=== PATIENT | female | born 1955 | race African-American/Black ===

== ENCOUNTER 2019-05-10 13:45 | Emergency (ER) | payer OTHER ==
--- OUTSIDE RECORDS SUMMARY | 2019-05-10 13:48 | XMS REPORT ---
:1955 Author Organization [facility] Address [address] [place] [address] Dr. Dos Santos [address] [place] [address] Care Team Providers Name Role Phone Unavailable Unavailable Unavailable Problems This patient has no known problems. Allergies, Adverse Reactions, Alerts This patient has no known allergies or adverse reactions. Medications This patient has no known medications.
--- OUTSIDE RECORDS SUMMARY | 2019-05-10 13:48 | XMS REPORT | Summary of Care ---
:1955 Author Organization [facility] Address [address] [place] [address] Care Team Providers Name Role Phone Neena Rojas MD Primary Care Provider Reason for Referral MRI/CAT Scan (Routine) Status Reason Specialty Diagnoses / Referred By Referred To Procedures Contact Contact Closed Diagnostic Procedures Rebecca Sales Radiology CT LANDMARK SINUS JUANITA Ortiz WO CONTRAST [address] [place] [address] Reason for Visit MRI/CAT Scan (Routine) Status Reason Specialty Diagnoses / Referred By Referred To Procedures Contact Contact Closed Diagnostic Procedures Rebecca Sales Radiology CT LANDMARK SINUS JUANITA Ortiz WO CONTRAST [address] [place] [address] Encounter Details Date Type Department Care Team Description 04/30/2019 Hospital Encounter [facility] Rebecca Sales Computed JUANITA Ortiz Tomography [address] [place] [phone] Allergies Active Allergy Reactions Severity Noted Date Comments Acetaminophen Itching, Swelling High 03/06/2018 documented as of this encounter (statuses as of 05/01/2019) Medications Medication Sig Dispensed Refills Start Date End Date Status amLODIPine 5 mg Take 1 tablet by 30 tablet 5 04/15/2019 Active tabletIndications: mouth daily. Essential hypertension albuterol 90 Inhale 2 Puffs 8.5 g 2 04/15/2019 Active mcg/actuation every 6 (six) inhalerIndications: hours as needed Chronic obstructive for Wheezing or pulmonary disease, Shortness of unspecified COPD type Breath. busPIRone 15 mg Take 1 tablet by 60 tablet 5 04/15/2019 Active tabletIndications: mouth 2 (two) Anxiety times daily. Diclofenac Sodium 1 % Apply 1gram to 100 g 5 04/15/2019 Active gelIndications: Overlap affected area syndrome, Arthralgia of twice daily multiple joints, Swelling of multiple joints ergocalciferol, vitamin Take 1 capsule 4 capsule 5 04/15/2019 Active d2, 1,250 mcg (50,000 by mouth weekly. unit) capsuleIndications: Hypovitaminosis D FLUoxetine (PROZAC) 20 Take 1 capsule 30 capsule 5 04/15/2019 Active mg capsuleIndications: by mouth daily. Anxiety predniSONE 5 mg Take 1 tablet by 30 tablet 5 04/15/2019 Active tabletIndications: mouth daily. Arthralgia of multiple joints, Swelling of multiple joints, Overlap syndrome traZODone 50 mg Take 1 tablet by 30 tablet 5 04/15/2019 Active tabletIndications: mouth at Chronic insomnia bedtime. famotidine 20 mg Take 1 tablet by 60 tablet 5 04/15/2019 Active tabletIndications: mouth 2 (two) Gastroesophageal reflux times daily. disease without esophagitis methocarbamol 750 mg Take 1 tablet by 60 tablet 5 04/15/2019 Active tabletIndications: Back mouth 4 (four) muscle spasm times daily as needed (muscle pain or spasm). predniSONE 10 mg 5 tabs po qdaily 40 tablet 0 04/15/2019 Active tabletIndications: x 2 days, 4 Arthralgia of multiple qdaily x 3 days, joints, Swelling of 3 qdaily x 3 multiple joints, days, 2 qdaily x Overlap syndrome 3 days, x 1 qdaily x 3 days, then start 5mg daily script documented as of this encounter (statuses as of 05/01/2019) Active Problems Problem Noted Date Prediabetes 04/23/2019 Dyslipidemia (high LDL; low HDL) 04/23/2019 Urge incontinence 09/13/2018 Detrusor instability of bladder 09/13/2018 Sarcoidosis 06/14/2018 Osteoporosis without current pathological fracture, unspecified 05/29/2018 osteoporosis type H/O: CVA (cerebrovascular accident) 05/17/2018 Cholelithiasis without cholecystitis 05/17/2018 Fibroid uterus 05/17/2018 Chronic sinusitis 05/17/2018 Hypovitaminosis D: 19(03/2018) 04/22/2018 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 (mentioned in [facility] hospitalization records 02/2018) documented as of this encounter (statuses as of 05/01/2019) Immunizations Name Administration Dates Next Due Influenza Virus Vaccine 02/12/2013 Influenza Virus Vaccine Quad .5 mL IM 6+ MO 03/06/2018 documented as of this encounter Social History Tobacco Use Types Packs/Day Years Used Date Former Smoker Smokeless Tobacco: Never Used Alcohol Use Drinks/Week oz/Week Comments No Sex Assigned at Date Recorded Not on file Job Start Date Occupation Industry Not on file Not on file Not on file Travel History Travel Start Travel End No recent travel history available. documented as of this encounter Last Filed Vital Signs Not on filedocumented in this encounter Plan of Treatment Date Type Specialty Care Team Description 05/08/2019 Office Visit Dermatology Aimee Latif MD [address] [place] [address] 07/17/2019 Office Visit Rheumatology Rock Koenig, DO [facility] [place] [address] [phone] Health Maintenance Due Date Last Done Comments DTaP,Tdap,and Td Vaccines (1 - Tdap) 1965 Breast Cancer Screening (MAMMOGRAM) 1994 COLONOSCOPY 01/04/2004 Zoster Recombinant Vaccine (SHINGRIX) (1 01/04/2004 of 2) LUNG CANCER SCREEN: Recommended for age 1001/03/2009 55-80 with 30 + pack year history INFLUENZA VACCINE (#1) 2018 03/06/2018, 02/12/2013 Medicare Wellness Visit 2019 PNEUMOCOCCAL VACCINES 65+ (1 of 2 - PCV13) 2019 Osteoporosis Screening 05/28/2028 05/28/2018 HEPATITIS C (HCV) SCREEN Completed 04/17/2018 documented as of this encounter Procedures Procedure Name Priority Date/Time Associated Diagnosis Comments CT LANDMARK SINUS Routine 04/30/2019 8:42 AM Results for this WO CONTRAST LICENSING REPRESENTATIVE procedure are in the results section. documented in this encounter Results CT LANDMARK SINUS WO CONTRAST (04/30/2019 8:42 AM LICENSING REPRESENTATIVE) Specimen Narrative Performed At HISTORY: History of sarcoidosis, nasal obstruction and tip collapse. PACS/VR/DOSE TECHNIQUE: 64-multidetector Spiral CT scan of sinuses was completed in axial projection and subsequently multiple sagittal/coronal reformations were generated. FINDINGS: Comparison is made with CT scan dated 05/16/2018. Persistent cavum septum pellucidum and mild prominence of cortical sulci throughout both cerebral hemispheres noted. Diffuse mucosal thickening noted in both maxillary sinuses, up to 8 mm with underlying mucous retention cysts secondary to chronic sinusitis. There is probably a small air-fluid level in the left maxillary antrum indicating superimposed mild acute sinusitis. Both right and left frontal and anterior ethmoid sinuses are completely cloudy. Portions of middle and posterior ethmoid sinuses on both sides are also partially cloudy. Minimal mucosal thickening noted in the anterior left sphenoid sinus. No significant encroachment is seen on the sphenoethmoid recesses. Drainage pathways of right and left maxillary sinuses, frontal/anterior ethmoid sinuses are blocked by mucosal disease. NASAL AIRWAYS: Mild right deviation of the nasal septum and moderate bilateral inferior turbinate hypertrophy noted. Mucosal thickening is seen in the right/left nasal passages surrounding middle/inferior turbinates causing additional encroachment into the nasal airways. No gross pathology seen in the temporal bone anatomy. CONCLUSIONS: 1. Chronic bilateral frontal/ethmoid/maxillary sinusitis with probable superimposed mild left maxillary acute sinusitis. 2. Mucosal disease obstructing the drainage pathways of frontal/anterior ethmoid/maxillary sinuses. Procedure Note [facility], Radiant Results Inft User - 04/30/2019 8:55 AM LICENSING REPRESENTATIVE HISTORY: History of sarcoidosis, nasal obstruction and tip collapse. TECHNIQUE: 64-multidetector Spiral CT scan of sinuses was completed in axial projection and subsequently multiple sagittal/coronal reformations were generated. FINDINGS: Comparison is made with CT scan dated 05/16/2018. Persistent cavum septum pellucidum and mild prominence of cortical sulci throughout both cerebral hemispheres noted. Diffuse mucosal thickening noted in both maxillary sinuses, up to 8 mm with underlying mucous retention cysts secondary to chronic sinusitis. There is probably a small air-fluid level in the left maxillary antrum indicating superimposed mild acute sinusitis. Both right and left frontal and anterior ethmoid sinuses are completely cloudy. Portions of middle and posterior ethmoid sinuses on both sides are also partially cloudy. Minimal mucosal thickening noted in the anterior left sphenoid sinus. No significant encroachment is seen on the sphenoethmoid recesses. Drainage pathways of right and left maxillary sinuses, frontal/anterior ethmoid sinuses are blocked by mucosal disease. NASAL AIRWAYS: Mild right deviation of the nasal septum and moderate bilateral inferior turbinate hypertrophy noted. Mucosal thickening is seen in the right/left nasal passages surrounding middle/inferior turbinates causing additional encroachment into the nasal airways. No gross pathology seen in the temporal bone anatomy. CONCLUSIONS: 1. Chronic bilateral frontal/ethmoid/maxillary sinusitis with probable superimposed mild left maxillary acute sinusitis. 2. Mucosal disease obstructing the drainage pathways of frontal/anterior ethmoid/maxillary sinuses. Performing Organization Address City/State/Zipcode Phone Number PACS/VR/DOSE documented in this encounter Insurance Payer Benefit Plan / Subscriber ID Effective Dates Phone Address Type Group [facility] xxxxxxxxx 2019-Present Medicaid COMM PLAN - PLUS MANAGED MEDICAID documented as of this encounter
--- OUTSIDE RECORDS SUMMARY | 2019-05-10 13:48 | XMS REPORT | Summary of Care ---
:1955 Author Organization [facility] Address [address] [place] [address] Care Team Providers Name Role Phone Neena Rojas MD Primary Care Provider Encounter Details Date Type Department Care Team Description 09/24/2018 Orders Only [facility] Doctor Unassigned, No [address] [facility] Name [place] [id number] [address] [place] [address] Allergies Active Allergy Reactions Severity Noted Date Comments Acetaminophen Itching, Swelling High 03/06/2018 documented as of this encounter (statuses as of 11/04/2018) Medications Medication Sig Dispensed Refills Start Date End Date Status ergocalciferol, vitamin Take 1 capsule 0 Active D2, (VITAMIN D ORAL) by mouth weekly. FLUoxetine (PROZAC) 20 Take 1 capsule 30 capsule 0 03/06/2018 Active mg capsule by mouth daily. traZODONE 50 mg tablet Take 1 tablet by 30 tablet 1 03/06/2018 Active mouth at bedtime. predniSONE 5 mg tablet Take 1 tablet by 30 tablet 1 03/06/2018 Active mouth daily. apixaban 5 mg tablet Take 10 mg po 104 tablet 0 03/06/2018 Active bid x 7 days then 5 mg bid for 3 months Diclofenac Sodium 1 % Apply 1gram to 100 g 1 04/17/2018 Active gelIndications: Overlap affected area syndrome twice daily ergocalciferol, vitamin Take 1 capsule 12 capsule 0 04/24/2018 Active d2, 50,000 unit by mouth weekly. capsuleIndications: Hypovitaminosis D proMETHazine 25 mg Take 1 tablet by 20 tablet 0 06/17/2018 Active tabletIndications: mouth every 6 Biliary colic (six) hours as needed for Nausea and Vomiting (N/V). albuterol 90 Inhale 2 Puffs 8.5 g 11 06/18/2018 Active mcg/actuation every 6 (six) inhalerIndications: hours as needed Axillary for Wheezing or lymphadenopathy, Hilar Shortness of lymphadenopathy Breath. busPIRone 15 mg Take 1 tablet by 60 tablet 5 09/12/2018 Active tabletIndications: mouth 2 (two) Anxiety times daily. amLODIPine 5 mg Take 1 tablet by 30 tablet 5 09/12/2018 Active tabletIndications: mouth daily. Essential hypertension ranitidine 150 mg Take 1 tablet by 60 tablet 11 09/12/2018 Active tabletIndications: mouth 2 (two) Gastroesophageal reflux times daily. disease without esophagitis documented as of this encounter (statuses as of 11/04/2018) Active Problems Problem Noted Date Urge incontinence 09/13/2018 Detrusor instability of bladder 09/13/2018 Sarcoidosis 06/14/2018 Osteoporosis without current pathological fracture, unspecified 05/29/2018 osteoporosis type H/O: CVA (cerebrovascular accident) 05/17/2018 LAD (lymphadenopathy), hilar 05/17/2018 Cholelithiasis without cholecystitis 05/17/2018 Fibroid uterus 05/17/2018 Chronic sinusitis 05/17/2018 Hypovitaminosis D: 19(03/2018) 04/22/2018 Overlap syndrome 04/17/2018 Immunization counseling 04/17/2018 At risk for bone density loss 04/17/2018 intermission coordinator (current) use of non-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 (mentioned in [facility] hospitalization records 02/2018) documented as of this encounter (statuses as of 11/04/2018) Immunizations Name Administration Dates Next Due Influenza [...] filedocumented in this encounter Plan of Treatment Health Maintenance Due Date Last Done Comments PNEUMOCOCCAL 0-64 YEARS COMBINED SERIES (1 01/04/1960 of 1 - PPSV23) DTaP,Tdap,and Td Vaccines (1 - Tdap) 1973 PAP SMEAR 1975 MAMMOGRAM 1994 COLONOSCOPY 01/04/2004 Zoster Recombinant Vaccine (SHINGRIX) (1 01/04/2004 of 2) LUNG CANCER SCREEN: Recommended for age 1001/03/2009 55-80 with 30 + pack year history INFLUENZA VACCINE (Retired version) 11/17/2018 03/06/2018, 02/12/2013 HEPATITIS C (HCV) SCREEN Completed 04/17/2018 documented as of this encounter Procedures Procedure Name Priority Date/Time Associated Diagnosis Comments DME/SUPPLY JUSTIFICATION Routine 09/24/2018 12:01 AM CDT documented in this encounter Results Not on filedocumented in this encounter Insurance Payer Benefit Plan / Subscriber ID Effective Dates Phone Address Type Group MEDICARE MEDICARE PART xxxxxxxxxxx 2013-Manuel [phone] [place] [address] [id number] JUANITA CHAPMAN [address] [facility] MEDICAID OF xxxxxxxxx 2018-Manuel [phone] Medicaid [place] t 0 [id number] [place] [address] documented as of this encounter
--- OUTSIDE RECORDS SUMMARY | 2019-05-10 13:48 | XMS REPORT | Summary of Care ---
:1955 Author Organization [facility] Address [address] [place] [address] Care Team Providers Name Role Phone Neena Rojas MD Primary Care Provider Reason for Referral Radiology Services (Routine) Status Reason Specialty Diagnoses / Referred By Referred To Procedures Contact Contact Closed Diagnostic Diagnoses Abnormal liver function tests Elevated alkaline phosphatase level Elevated AST (SGOT) Leukopenia, unspecified type [place], Radiology Procedures US ABDOMEN LIMITED Neena Loyola MD [address] [place] [address] [facility] [place] [place] [address] Reason for Visit Radiology Services (Routine) Status Reason Specialty Diagnoses / Referred By Referred To Procedures Contact Contact Closed Diagnostic Diagnoses Abnormal liver function tests Elevated alkaline phosphatase level Elevated AST (SGOT) Leukopenia, unspecified type [place], Radiology Procedures US ABDOMEN LIMITED Neena Loyola MD [address] [place] [address] [facility] [place] [address] Encounter Details Date Type Department Care Team Description 04/30[facility]2019 [facility] [address] [place] [address] [place] [address] [place] [address] [place] [phone] [address] Allergies Active Allergy Reactions Severity Noted Date [...] At risk for bone density loss 04/17/2018 jail (current) use of non-steroidal anti-inflammatories (nsaid) 2018 [...] 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 (mentioned in [facility] hospitalization records 02/2018) documented as [...] Office Visit Dermatology Aimee Latif MD [address] [place] [phone] 07/17/2019 Office Visit Rheumatology Rock Koenig, DO [address] [place] [address] [phone] Health Maintenance Due Date Last Done Comments [...] Procedure Name Priority Date/Time Associated Diagnosis Comments US ABDOMEN LIMITED Routine 04/30/2019 8:34 AM Abnormal liver Results for this [employer] function tests procedure are in Elevated alkaline the results phosphatase level section. Elevated AST (SGOT) Leukopenia, unspecified type documented in this encounter Results US ABDOMEN LIMITED (04/30/2019 8:34 AM [employer]CH[employer]) Specimen Narrative Performed At HISTORY: Abnormal LFTs. PACS/VR/DOSE COMPARISON: None TECHNIQUE: Liver as well as gallbladder were evaluated in multiple planes without and with color imaging. FINDINGS: Comparison has been made with CT scan dated 06/17/2018. Liver is approximately 15.0 cm and showed normal homogeneous echotexture. Hepatic/portal venous systems appear patent with hepatopedal portal venous flow confirmed. No fluid is seen in the right upper abdomen. No dilatation of the intrahepatic biliary ducts. Gallbladder is elongated shaped with minimal thickening of the shah and a few small 3-4 liver size mobile gallstones in the dependent portion of its lumen with acoustic shadowing confirmed. Common hepatic duct measured 5.5 mm. Visualized portions of the pancreas appear normal. CONCLUSIONS: 1. Normal ultrasound study of liver. 2. Gallstones noted without any signs of acute cholecystitis. Procedure Note [facility], Radiant Results Inft User - 04/30/2019 8:44 AM [employer] HISTORY: Abnormal LFTs. COMPARISON: None TECHNIQUE: Liver as well as gallbladder were evaluated in multiple planes without and with color imaging. FINDINGS: Comparison has been made with CT scan dated 06/17/2018. Liver is approximately 15.0 cm and showed normal homogeneous echotexture. Hepatic/portal venous systems appear patent with hepatopedal portal venous flow confirmed. No fluid is seen in the right upper abdomen. No dilatation of the intrahepatic biliary ducts. Gallbladder is elongated shaped with minimal thickening of the shah and a few small 3-4 liver size mobile gallstones in the dependent portion of its lumen with acoustic shadowing confirmed. Common hepatic duct measured 5.5 mm. Visualized portions of the pancreas appear normal. CONCLUSIONS: 1. Normal ultrasound study of liver. 2. Gallstones noted without any signs of acute cholecystitis. Performing Organization Address City/State/Zipcode Phone Number PACS/VR/DOSE documented in this encounter Visit Diagnoses Diagnosis Abnormal liver function tests Other abnormal blood chemistry Elevated alkaline phosphatase level Other nonspecific abnormal serum enzyme levels Elevated AST (SGOT) Nonspecific elevation of levels of transaminase or lactic acid dehydrogenase ( LDH) Leukopenia, unspecified type documented in this encounter Insurance Payer Benefit Plan / Subscriber ID Effective Dates Phone Address Type Group [facility] xxxxxxxxx 2019-Present Medicaid COMM PLAN - PLUS MANAGED MEDICAID documented as of this encounter
--- OUTSIDE RECORDS SUMMARY | 2019-05-10 13:49 | XMS REPORT | Summary of Care ---
:1955 Author Organization [facility] Address [address] [place], [place] [address] Care Team Providers Name Role Phone Neena Rojas MD Primary Care Provider Reason for Referral MRI/CAT Scan (Routine) Status Reason Specialty Diagnoses / Referred By Referred To Procedures Contact Contact New Request Diagnostic Procedures Mónica, Radiology CT LANDMARK SINUS Rebecca WO JUANITA Carrasco [address] [place] [phone] Reason for Visit Reason Comments New Patient Sinus Problem nasal congestion (STAT) Status Reason Specialty Diagnoses / Referred By Referred To Procedures Contact Contact Closed Otolaryngology Diagnoses Nasal obstruction Sarcoidosis Nasal hypertrophy Neena Rojas Procedures CONSULT/REFERRAL ENT MD Nir [address] [place] [address] [place] [address] Encounter Details Date Type Department Care Team Description 04/28/2019 Office Visit [facility] Ear, Nose Rebecca Sales Hyposmia ( Primary Dx); and Throat-JUANITA Michelle Sarcoidosis; [address] Nasal septal deviation [address] [facility] [address] [place], [place] [phone] [address] [phone] Allergies Active Allergy Reactions Severity Noted Date Comments Acetaminophen Itching, Swelling High 03/06/2018 documented as of this encounter (statuses as of 04/29/2019) Medications Medication Sig Dispensed Refills Start Date [...] ergocalciferol, vitamin Take 1 capsule 4 capsule 04/15/2019 Active d2, 1,250 mcg (50,000 by mouth weekly. unit) capsuleIndications: Hypovitaminosis D FLUoxetine (PROZAC) 20 Take 1 capsule 30 capsule 04/15/2019 Active mg capsuleIndications: by mouth daily. Anxiety predniSONE 5 mg Take 1 tablet by 30 tablet 04/15/2019 Active tabletIndications: mouth daily. Arthralgia of multiple joints, Swelling of multiple joints, Overlap syndrome traZODone 50 mg Take 1 tablet by 30 tablet 04/15/2019 Active tabletIndications: mouth at Chronic insomnia bedtime. 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 Patient endorses anosmia bilaterally and alternating congestion. She denies pain , drainage, nasal obstruction, recurrent sinus infections, and epistaxis. The appearance of her nose is very bothersome to her. She denies any changes since onset 20-30 years ago. Has been taking prednisone for the last 10 years for her RA. Denies intranasal drug use, hx of sinus surgery or nasal spray use. Past Medical Hx: Past Medical History: Diagnosis Date Anemia Anxiety Bipolar 1 disorder Cholelithiasis without cholecystitis 05/17/2018 Chronic sinusitis 05/17/2018 Depression Detrusor instability of bladder 09/13/2018 Dyslipidemia (high LDL; low HDL) 04/23/2019 Fibroid uterus 05/17/2018 H. pylori infection H/O: CVA (cerebrovascular accident) 05/17/2018 Hearing loss HTN (hypertension) LAD (lymphadenopathy), hilar 05/17/2018 Neurofibromatosis 03/20/2018 ? (mentioned in [facility] hospitalization records 02/2018) Prediabetes 04/23/2019 PTSD (post-traumatic stress disorder) Pulmonary embolism 02/2018 RA (rheumatoid arthritis) Sarcoidosis 06/14/2018 Urge incontinence 09/13/2018 Urine induced contact dermatitis 09/13/2018 Past Surgical Hx: Past Surgical History: Procedure Laterality Date SECTION SURGICAL HISTORY OTHER (SHX) ORIF left leg w/ retained hardware Social History: Social History Tobacco Use Smoking status: Former Smoker Smokeless tobacco: Never Used Substance Use Topics Alcohol use: No Drug use: No Family History: Family History Problem Relation Age of Onset Stroke Mother Heart Mother Hypertension Sister Heart Father Hypertension Brother Allergies: Tylenol [acetaminophen] Medications: Current Outpatient Medications Medication Sig albuterol 90 mcg/actuation inhaler Inhale 2 Puffs every 6 (six) hours as needed for Wheezing or Shortness of Breath. amLODIPine 5 mg tablet Take 1 tablet by mouth daily. busPIRone 15 mg tablet Take 1 tablet by mouth 2 (two) times daily. Diclofenac Sodium 1 % gel Apply 1gram to affected area twice daily ergocalciferol, vitamin d2, 1,250 mcg (50,000 unit) capsule Take 1 capsule by mouth weekly. famotidine 20 mg tablet Take 1 tablet by mouth 2 (two) times daily. FLUoxetine (PROZAC) 20 mg capsule Take 1 capsule by mouth daily. methocarbamol 750 mg tablet Take 1 tablet by mouth 4 (four) times daily as needed (muscle pain or spasm). predniSONE 10 mg tablet 5 tabs po qdaily x 2 days, 4 qdaily x 3 days, 3 qdaily x 3 days, 2 qdaily x 3 days, x 1 qdaily x 3 days, then start 5mg daily script predniSONE 5 mg tablet Take 1 tablet by mouth daily. traZODone 50 mg tablet Take 1 tablet by mouth at bedtime. Review of Systems Positive issues in the Review of Systems will be BOLD Constitutional: fevers, chills, sweats, fatigue, weight loss, change in appetite Eyes: vision changes, diplopia, eye pain Ears: hearing loss, otalgia, otorrhea, tinnitus, vertigo Nose: anosmia, rhinorrhea, nasal congestion, epistaxis, difficulty breathing Throat: dysphagia, odynophagia, dysphonia Cardiovascular: chest pain, palpitations, dyspnea on exertion Respiratory: cough, wheeze, shortness of breath; hx asthma or COPD Gastrointestinal: nausea, vomiting, diarrhea, abdominal pain, indigestion Genitourinary: recent infections, ESRD, dysuria, oliguria Musculoskeletal: arthritis, joint pain, mobility problems Integumentary: skin infection, rashes or skin changes Neurologic: seizures, headaches, weakness Psychiatric: ADHD, anxiety, depressed mood Endocrine: thyroid problems, diabetes Hematologic: bleeding disorders, easy bruising Allergy/Immunology: food allergy, environmental allergy, immunosuppressed, eczema Physical Exam: Temp 36.9 C (98.5 F) (Tympanic) | Ht 5' 2" (1.575 m) | Wt 132 lb 0.1 oz ( 59.9 kg) | BMI 24.14kg/m GENERAL: WDWN in NAD. Normal voice. No dyspnea or stridor. HEAD/FACE: Normocephalic, atraumatic. Facial nerve intact and bilaterally symmetric. Submandibular and parotid glands non-tender and without masses. Malar rash EYES: EOMI; conjunctivae clear EARS: Auricles normal. R canal clear and TM intact. L canal impacted, TM not visible. T[place]ork Testing: Rinne: Positive bilaterally with 512 Hz Baldwin: Did not lateralize. NOSE: Enlarged nares and widened nasal bridge with tip collapse. Nasal mucosa normal; no step offs,nares patent, mild nasal valve collapse, right septal deviation; no inferior turbinate hypertrophy.See procedure note.--photo available in media tab. OC/OP: No trismus; oral mucosa is wnl, no mass or lesion; edentulism, tongue soft without restriction of movement; No post-nasal drainage; tonsils present and not enlarged; uvula midline; palate intactand elevates symmetrically. NECK: Neck is supple; trachea midline; no obvious goiter or thyroid nodules appreciated. LYMPH: Unable to appreciate gross cervical lymphadenopathy. SKIN: Swelling of external nose, BUE, and BLE. NEUROLOGICAL: Cranial nerves II-XII grossly intact. PSYCHIATRIC: Oriented to person, place, time. Appropriate affect for age. RESPIRATORY: Good respiratory effort; symmetrical expansion of thoracic cavity. CARDIOVASCULAR: extremities well perfused. Procedures Sinonasal Endoscopy: Sinonasal endoscopy was performed in clinic for better visualization of the patient's nasal cavity and sinuses. Topical anesthesia and decongestion were used. Using a flexible endoscope, the nasal cavity was evaluated. Septum was found to be deviated to the right, unable to pass scope on the right. L side middle turbinate making contact with septum. Nasal mucosa appeared normal. Middle meati and SE recesses clear of drainage and polyps bilaterally. The nasopharynx showed no significant lesions or purulence. The patient tolerated the procedure well with no complications Data Review Comprehensive data review performed DIAGNOSES: ICD-10-CM ICD-9-CM 1. Hyposmia R43.8 781.1 2. Sarcoidosis D86.9 135 3. Nasal septal deviation J34.2 470 Assessment/Plan: Lakshmi Garcia is a 64 year old female with PMH of HTN, RA, and sarcoidosis who presents for evaluation of a 20-year history of nasal enlargement and hyposmia. The external nose is diffusely enlarged with severe tip collapse. Normal nasal mucosa and patency. Suspect this is due to her autoimmune issues. Nasal endoscopy limited due to her anatomy. - CT sinuses w/o contrast - Will call with results but suspect she will need a rhinoplasty which may require plastic surgery referral. I discussed at length the exam findings, diagnoses, and treatment options with the patient. Questions have been answered to satisfaction. JONATHAN RosenbergC Department of Otolaryngology [facility] documented in this encounter Plan of Treatment Date Type Specialty Care Team Description 04/30/2019 Appointment Radiology Neena Rojas MD [address] [place] [phone] 04/30/2019 Appointment Radiology Rebecca aSles PA [address] [place] [address] 05/08/2019 Office Visit Dermatology Aimee Latif MD [address] [place] [address] 07/17/2019 Office Visit Rheumatology Rock Koenig DO [address] [place] [address] [phone] Name Type Priority Associated Diagnoses Order Schedule CT LANDMARK SINUS WO IMAGING Routine Expected: 04/28/2019, CONTRAST Expires: 04/27/2020 Health Maintenance Due Date Last Done Comments [...] Completed 04/17/2018 documented as of this encounter Results Not on filedocumented in this encounter Visit Diagnoses Diagnosis Hyposmia - Primary Disturbances of sensation of smell and taste Sarcoidosis Nasal septal deviation Deviated nasal septum documented in this encounter Insurance Payer Benefit Plan / Subscriber ID Effective Dates Phone Address Type Group [facility] xxxxxxxxx 2019-Present Medicaid COMM PLAN - PLUS MANAGED MEDICAID documented as of this encounter
--- OUTSIDE RECORDS SUMMARY | 2019-05-10 13:49 | XMS REPORT | Summary of Care ---
:1955 Author Organization [facility] Address [address] [place] [address] Care Team Providers Name Role Phone Neena Rojas MD Primary Care Provider Reason for Referral Radiology Services (Routine) Status Reason Specialty Diagnoses / Referred By Referred To Procedures Contact Contact New Request Diagnostic Diagnoses Abnormal liver function tests Elevated alkaline phosphatase level Elevated AST (SGOT) Leukopenia, unspecified type Bob, Radiology Procedures US ABDOMEN LIMITED Neena Loyola MD [address] [place] [address] [place] [address] Reason for Visit Reason Comments Orders Encounter Details Date Type Department Care Team Description 04/23/2019 Case Management [facility] Family Neena Rojas, Orders Medicine - [place] GERBER [address] [place] [address] [place] [address] [place] [address] [place], [place] [phone] [address] Allergies Active Allergy Reactions Severity Noted Date Comments Acetaminophen Itching, Swelling High 03/06/2018 documented as of this encounter (statuses as of 04/23/2019) Medications Medication Sig Dispensed Refills Start Date [...] 1 % Apply 1gram to 100 g 04/15/2019 Active gelIndications: Overlap affected area syndrome, [...] tablet by 60 tablet 04/15/2019 Active tabletIndications: Back mouth 4 (four) [...] as of this encounter (statuses as of 04/23/2019) Active Problems Problem Noted Date Prediabetes 04/23/2019 [...] At risk for bone density loss 04/17/2018 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 pylori infection documented as of this encounter (statuses as of 04/23/2019) Resolved Problems Problem Noted Date Resolved Date Urine induced contact dermatitis 09/13/2018 09/13/2018 LAD (lymphadenopathy), hilar 05/17/2018 04/15/2019 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 (mentioned in [facility] hospitalization records 02/2018) documented as of this encounter (statuses as of 04/23/2019) Immunizations Name Administration Dates Next Due Influenza [...] Treatment Date Type Specialty Care Team Description 04/24/2019 Office Visit Dermatology Aimee Latif MD [address] [place] [address] 04/28/2019 Office Visit Otolaryngology Rebecca Sales PA [address] [place] [address] 07/17/2019 Office Visit Rheumatology Rock Koenig DO [facility] [place] [address] [phone] Name Type Priority Associated Diagnoses Order Schedule US ABDOMEN LIMITED IMAGING Routine Abnormal liver Expected: function tests 04/23/2019, Expires: Elevated alkaline 04/23/2020 phosphatase level Elevated AST (SGOT) Leukopenia, unspecified type ALKALINE PHOSPHATASE LAB Routine Abnormal liver 1 Occurrences ISOENZYME function tests starting 04/23/2019 Elevated alkaline until 06/22/2019 phosphatase level Elevated AST (SGOT) Leukopenia, unspecified type ALPHA 1 ANTITRYPSIN LAB Routine Abnormal liver 1 Occurrences function tests starting 04/23/2019 Elevated alkaline until 06/22/2019 phosphatase level Elevated AST (SGOT) Leukopenia, unspecified type CERULOPLASMIN LAB Routine Abnormal liver 1 Occurrences function tests starting 04/23/2019 Elevated alkaline until 06/22/2019 phosphatase level Elevated AST (SGOT) Leukopenia, unspecified type FERRITIN SERUM LAB Routine Abnormal liver 1 Occurrences function tests starting 04/23/2019 Elevated alkaline until 06/22/2019 phosphatase level Elevated AST (SGOT) Leukopenia, unspecified type GAMMA GLUTAMYLTRANSFERASE LAB Routine Abnormal liver 1 Occurrences function tests starting 04/23/2019 Elevated alkaline until 06/22/2019 phosphatase level Elevated AST (SGOT) Leukopenia, unspecified type HAV ANTIBODY (IGG AND IGM) LAB Routine Abnormal liver 1 Occurrences function tests starting 04/23/2019 Elevated alkaline until 06/22/2019 phosphatase level Elevated AST (SGOT) Leukopenia, unspecified type HCV ANTIBODY LAB Routine Abnormal liver 1 Occurrences function tests starting 04/23/2019 Elevated alkaline until 06/22/2019 phosphatase level Elevated AST (SGOT) Leukopenia, unspecified type HEPATITIS B SURFACE ANTIBODY LAB Routine Abnormal liver 1 Occurrences function tests starting 04/23/2019 Elevated alkaline until 10/20/2019 phosphatase level Elevated AST (SGOT) Leukopenia, unspecified type HEPATITIS B SURFACE ANTIGEN LAB Routine Abnormal liver 1 Occurrences function tests starting 04/23/2019 Elevated alkaline until 06/22/2019 phosphatase level Elevated AST (SGOT) Leukopenia, unspecified type MITOCHONDRIAL M2 AB, IGG LAB Routine Abnormal liver 1 Occurrences function tests starting 04/23/2019 Elevated alkaline until 06/22/2019 phosphatase level Elevated AST (SGOT) Leukopenia, unspecified type SMOOTH MUSCLE AB,IGG LAB Routine Abnormal liver 1 Occurrences W/REFLEX function tests starting 04/23/2019 Elevated alkaline until 06/22/2019 phosphatase level Elevated AST (SGOT) Leukopenia, unspecified type HIV 1/2 AG-AB WITH REFLEX LAB Routine Abnormal liver 1 Occurrences function tests starting 04/23/2019 Elevated alkaline until 06/22/2019 phosphatase level Elevated AST (SGOT) Leukopenia, unspecified type ELECTROPHORESIS, SERUM LAB Routine Abnormal liver 1 Occurrences function tests starting 04/23/2019 Elevated alkaline until 06/22/2019 phosphatase level Elevated AST (SGOT) Leukopenia, unspecified type Elevated serum protein level Health Maintenance Due Date Last Done Comments [...] filedocumented in this encounter Visit Diagnoses Diagnosis Abnormal liver function tests - Primary Other abnormal blood chemistry Elevated alkaline phosphatase level Other nonspecific abnormal serum enzyme levels Elevated AST (SGOT) Nonspecific elevation of levels of transaminase or lactic acid dehydrogenase ( LDH) Leukopenia, unspecified type Elevated serum protein level Other nonspecific findings on examination of blood documented in this encounter Insurance Payer Benefit Plan / Subscriber ID Effective Dates Phone Address Type Group [facility] xxxxxxxxx 2019-Present Medicaid COMM PLAN - PLUS MANAGED MEDICAID documented as of this encounter
--- OUTSIDE RECORDS SUMMARY | 2019-05-10 13:49 | XMS REPORT | Summary of Care ---
:1955 Author Organization [facility] Address [address] [place], [place] [address] Care Team Providers Name Role Phone Neena Rojas MD Primary Care Provider Reason for Referral MRI/CAT Scan (Routine) Status Reason Specialty Diagnoses / Referred By Referred To Procedures Contact Contact New Request Diagnostic Procedures Mónica, Radiology CT LANDMARK SINUS Rebecca WO JUANITA Carrasco [address] [place] [phone] Reason for Visit Reason Comments New Patient Sinus Problem nasal congestion (STAT) Status Reason Specialty Diagnoses / Referred By Referred To Procedures Contact Contact Closed Otolaryngology Diagnoses Nasal obstruction Sarcoidosis Nasal hypertrophy Neena Rojas Procedures CONSULT/REFERRAL ENT MD Nir [address] [place] [address] [place] [address] Encounter Details Date Type Department Care Team Description 04/28/2019 Office Visit [facility] Ear, Nose Rebecca Sales Hyposmia ( Primary Dx); and Throat-JUANITA Michelle Sarcoidosis; [address] Nasal septal deviation [address] [facility] [address] [place], [place] [phone] [address] [phone] Allergies Active Allergy Reactions Severity Noted Date [...] At risk for bone density loss 04/17/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 (mentioned in [facility] hospitalization records 02/2018) Prediabetes 04/23/2019 PTSD [...] to satisfaction. JONATHAN RosenbergC Department of Otolaryngology [facility] documented in this encounter Plan of Treatment Date Type Specialty Care Team Description 04/30/2019 Appointment Radiology Neena Rojas MD [address] [place] [phone] 04/30/2019 Appointment Radiology Rebecca Sales PA [address] [place] [address] 05/08/2019 Office Visit Dermatology Aimee Latif MD [address] [place] [address] 07/17/2019 Office Visit Rheumatology Rock Koenig DO [address] [place] [address] [phone] Name Type Priority Associated Diagnoses Order Schedule [...] ID Effective Dates Phone Address Type Group [facility] [place] xxxxxxxxx 2019-Present Medicaid COMM PLAN - PLUS MANAGED MEDICAID documented as of this encounter
--- OUTSIDE RECORDS SUMMARY | 2019-05-10 13:50 | XMS REPORT | Summary of Care ---
:1955 Author Organization [facility] Address [address] [place] [address] Care Team Providers Name Role Phone Neena Rojas MD Primary Care Provider Encounter Details Date Type Department Care Team Description 04/24/2019 Orders Only [facility] Doctor Unassigned, No [address] [facility] Name [place] [id number] [address] [place], [place] [id number] Allergies Active Allergy Reactions Severity Noted Date Comments Acetaminophen Itching, Swelling High 03/06/2018 documented as of this encounter (statuses as of 04/24/2019) Medications Medication Sig Dispensed Refills Start Date [...] as of this encounter (statuses as of 04/24/2019) Active Problems Problem Noted Date Prediabetes 04/23/2019 [...] At risk for bone density loss 04/17/2018 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 pylori infection documented as of this encounter (statuses as of 04/24/2019) Resolved Problems Problem Noted Date Resolved Date Urine induced contact dermatitis 09/13/2018 09/13/2018 LAD (lymphadenopathy), pauloar 05/17/2018 04/15/2019 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 (mentioned in [facility] hospitalization records 02/2018) documented as of this encounter (statuses as of 04/24/2019) Immunizations Name Administration Dates Next Due Influenza [...] Treatment Date Type Specialty Care Team Description 04/28/2019 Office Visit Otolaryngology Rebecca Sales PA [address] [place] [address] 05/08/2019 Office Visit Dermatology Aimee Latif MD [address] [place] [address] 07/17/2019 Office Visit Rheumatology Rock Koenig, DO [address] [place] [address] [phone] Health Maintenance Due Date Last Done Comments [...] Procedure Name Priority Date/Time Associated Diagnosis Comments EXTERNAL PROVIDER Routine 04/24/2019 12:01 AM 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
--- OUTSIDE RECORDS SUMMARY | 2019-05-10 13:50 | XMS REPORT | Summary of Care ---
:1955 Author Organization [facility] - [facility] Address [address] [place] [id number] Care Team Providers Name Role Phone Neena Rojas MD Primary Care Provider Reason for Visit Reason Comments Results Encounter Details Date Type Department Care Team Description 05/02/2019 Telephone [facility], Rebecca Ortiz, Results [facility] [facility] [address] [place] [address] [place] [address] [place] [address] Allergies Active Allergy Reactions Severity Noted Date Comments Acetaminophen Itching, Swelling High 03/06/2018 documented as of this encounter (statuses as of 05/02/2019) Medications Medication Sig Dispensed Refills Start Date [...] 3 days, then start 5mg daily script fluticasone propionate Use 1 [place] in 16 g 3 05/02/2019 Active 50 mcg/actuation nasal each nostril 2 sprayIndications: (two) times Hypertrophy of both daily. inferior nasal turbinates documented as of this encounter (statuses as of 05/02/2019) Active Problems Problem Noted Date Prediabetes 04/23/2019 [...] At risk for bone density loss 04/17/2018 [facility] (current) use of non-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 (mentioned in [facility] hospitalization records 02/2018) documented as of this encounter (statuses as of 05/02/2019) Immunizations Name Administration Dates Next Due Influenza [...] Office Visit Dermatology Aimee Latif MD [address] [place] [address] 07/17/2019 Office Visit Rheumatology Rock Koenig DO [address] [place] [address] [phone] Health Maintenance Due Date Last Done Comments [...] filedocumented in this encounter Visit Diagnoses Diagnosis Hypertrophy of both inferior nasal turbinates - Primary Hypertrophy of nasal turbinates Sarcoidosis documented in this encounter Insurance Payer Benefit Plan / Subscriber ID Effective Dates Phone Address Type Group [facility] xxxxxxxxx 2019-Present Medicaid COMM PLAN - PLUS MANAGED MEDICAID documented as of this encounter
--- OUTSIDE RECORDS SUMMARY | 2019-05-10 13:51 | XMS REPORT | Summary of Care ---
:1955 Author Organization [facility] Address [address] [place] [id number] Care Team Providers Name Role Phone Neena Rojas MD Primary Care Provider Reason for Referral (DIANNA) Status Reason Specialty Diagnoses / Procedures Referred By Contact Referred To Contact Closed Dermatology Diagnoses Atypical rash Neena Rojas Procedures CONSULT/REFERRAL DERMATOLOGY MD Nir [address] [place] [address] [place] [address] (DIANNA) Status Reason Specialty Diagnoses / Referred By Referred To Procedures Contact Contact New Request Rheumatology Diagnoses Arthralgia of multiple joints Swelling of multiple joints Overlap syndrome Bob, Procedures CONSULT/REFERRAL RHEUMATOLOGY Neena Loyola MD [address] [place] [address] [place] [address] (STAT) Status Reason Specialty Diagnoses / Referred By Referred To Procedures Contact Contact Closed Otolaryngology Diagnoses Nasal obstruction Sarcoidosis Nasal hypertrophy Neena Rojas Procedures CONSULT/REFERRAL ENT MD Nir [address] [place] [address] [facility] [address] Reason for Visit Reason Comments SWELLING Sinus Problem facial pressure INSOMNIA LAB WORK Encounter Details Date Type Department Care Team Description 04/15/[address] [facility] Family Neena Rojas Essential hypertension (Primary Dx); Medicine - Asia Loyola MD Arthralgia of multiple joints; [facility] [place] [address] [address] [facility] Swelling of multiple joints; Drive [place], [place] Overlap syndrome; [place] [address] Anxiety; [id number] Hypovitaminosis D: 19(03/2018); [phone] Gastroesophageal reflux disease without esophagitis; (Fax) Chronic insomnia; Abnormal finding of blood chemistry, unspecified ; Back muscle spasm; Chronic obstructive pulmonary disease, unspecified COPD type; Nasal obstruction; Sarcoidosis; Nasal hypertrophy; Atypical rash Allergies Active Allergy Reactions Severity Noted Date Comments Acetaminophen Itching, Swelling High 03/06/2018 documented as of this encounter (statuses as of 05/03/2019) Medications Medication Sig Dispensed Refills Start End Date Status Date amLODIPine 5 mg Take 1 tablet 30 tablet Active tabletIndications: by mouth 0 Essential daily. hypertension albuterol 90 Inhale 2 8.5 g 2 Active mcg/actuation Puffs every 6 0 inhalerIndications: (six) hours Chronic obstructive as needed for pulmonary disease, Wheezing or unspecified COPD Shortness of type Breath. busPIRone 15 mg Take 1 tablet 60 tablet Active tabletIndications: by mouth 2 0 Anxiety (two) times daily. Diclofenac Sodium 1 Apply 1gram 100 g Active % gelIndications: to affected 0 Overlap syndrome, area twice Arthralgia of daily multiple joints, Swelling of multiple joints ergocalciferol, Take 1 4 capsule Active vitamin d2, 1,250 capsule by 0 mcg (50,000 unit) mouth weekly. capsuleIndications: Hypovitaminosis D FLUoxetine (PROZAC) Take 1 30 capsule Active 20 mg capsule by 0 capsuleIndications: mouth daily. Anxiety predniSONE 5 mg Take 1 tablet 30 tablet Active tabletIndications: by mouth 0 Arthralgia of daily. multiple joints, Swelling of multiple joints, Overlap syndrome traZODone 50 mg Take 1 tablet 30 tablet Active tabletIndications: by mouth at 0 Chronic insomnia bedtime. famotidine 20 mg Take 1 tablet 60 tablet Active tabletIndications: by mouth 2 0 Gastroesophageal (two) times reflux disease daily. without esophagitis methocarbamol 750 mg Take 1 tablet 60 tablet 5 Active tabletIndications: by mouth 4 0 Back muscle spasm (four) times daily as needed (muscle pain or spasm). predniSONE 10 mg 5 tabs po 40 tablet 0 Active tabletIndications: qdaily x 2 0 Arthralgia of days, 4 multiple joints, qdaily x 3 Swelling of multiple days, 3 joints, Overlap qdaily x 3 syndrome days, 2 qdaily x 3 days, x 1 qdaily x 3 days, then start 5mg daily script ergocalciferol, Take 1 0 04/15/19 Discontinued vitamin D2, (VITAMIN capsule by 20 (Duplicate) D ORAL) mouth weekly. FLUoxetine (PROZAC) Take 1 30 capsule 0 04/15/19 Discontinued 20 mg capsule capsule by 8 20 (Reorder) mouth daily. traZODONE 50 mg Take 1 tablet 30 tablet 1 04/15/19 Discontinued tablet by mouth at 8 20 (Reorder) bedtime. predniSONE 5 mg Take 1 tablet 30 tablet 1 04/15/19 Discontinued tablet by mouth 8 20 (Reorder) daily. apixaban 5 mg tablet Take 10 mg po 104 tablet 0 04/15/19 Discontinued bid x 7 days 8 20 (Therapy then 5 mg bid completed) for 3 months Diclofenac Sodium 1 Apply 1gram 100 g 1 04/15/19 Discontinued % gelIndications: to affected 9 20 (Reorder) Overlap syndrome area twice daily ergocalciferol, Take 1 12 capsule 0 04/15/19 Discontinued vitamin d2, 50,000 capsule by 9 20 (Reorder) unit mouth weekly. capsuleIndications: Hypovitaminosis D proMETHazine 25 mg Take 1 tablet 20 tablet 0 04/15/19 Discontinued tabletIndications: by mouth 9 20 (Therapy Biliary colic every 6 (six) completed) hours as needed for Nausea and Vomiting (N/V). albuterol 90 Inhale 2 8.5 g 11 04/15/19 Discontinued mcg/actuation Puffs every 6 9 20 (Reorder) inhalerIndications: (six) hours Axillary as needed for lymphadenopathy, Wheezing or Hilar Shortness of lymphadenopathy Breath. busPIRone 15 mg Take 1 tablet 60 tablet 5 04/15/19 Discontinued tabletIndications: by mouth 2 9 20 (Reorder) Anxiety (two) times daily. amLODIPine 5 mg Take 1 tablet 30 tablet 5 04/15/19 Discontinued tabletIndications: by mouth 9 20 (Reorder) Essential daily. hypertension ranitidine 150 mg Take 1 tablet 60 tablet 11 04/15/19 Discontinued tabletIndications: by mouth 2 9 20 (Alternate Gastroesophageal (two) times therapy) reflux disease daily. without esophagitis traMADol 50 mg Take 1 tablet 21 tablet 0 04/15/19 Discontinued tabletIndications: by mouth 9 20 (Therapy Rheumatoid arthritis every 8 completed) involving multiple (eight) hours sites, unspecified as needed rheumatoid factor (moderate-sev presence, ere pain). 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 (mentioned in [facility] hospitalization records 02/2018) documented as of this encounter (statuses as of 05/03/2019) Immunizations Name Administration Dates Next Due Influenza [...] Sign Reading Time Taken Comments Blood Pressure 137/82 04/15/2019 1:23 PM DRAFTER (CAD) ELECTRICAL Pulse 87 04/15/2019 1:23 PM DRAFTER (CAD) ELECTRICAL Temperature 37.1 C (98.7 F) 04/15/2019 1:23 PM DRAFTER (CAD) ELECTRICAL Respiratory Rate - - Oxygen Saturation 93% 04/15/2019 1:23 PM DRAFTER (CAD) ELECTRICAL Inhaled Oxygen Concentration - - Weight 60.8 kg (134 lb) 04/15/2019 1:23 PM DRAFTER (CAD) ELECTRICAL Height 157.5 cm (5' 2") 04/15/2019 1:23 PM DRAFTER (CAD) ELECTRICAL Body Mass Index 24.51 04/15/2019 1:23 PM DRAFTER (CAD) ELECTRICAL documented in this encounter Patient Instructions Patient InstructionsCoNeena bae MD - 04/15/2019 1:15 PM CST Your Bodys Response to Anxiety Normal anxiety is part of the bodys natural defense system. It's an alert to a threat that is unknown, vague, or comes from your own internal fears.While youre in this state, your feelings can range from a vague sense of worry to physical sensations such as a pounding heartbeat. These feelingsmake you want to react to the threat. An anxiety response is normal in many situations. But when youhave an anxiety disorder, the same response can occur at the wrong times. Anxiety can be helpful Normal anxiety is a signal from your brain that warns you of a threat and is a normal response to help you prevent something or decrease the bad effects of something you can't control. For example, anxiety is a normal response to situations that might damage your body, separate you from a loved one, or lose your job. The symptoms of anxiety can be physical and mental. How does it feel? At certain times, people with anxiety may have: Dizziness Muscle tension or pain Restlessness Sleeplessness Trouble concentrating Racing heartbeat Fast breathing Shaking or trembling Stomachache Diarrhea Loss of energy Sweating Cold, clammy hands Chest pain Dry mouth Anxiety can also be a problem Anxiety can become a problem when it is hard to control, occurs for months, and interferes with important parts of your life. With an anxiety disorder, your body has the response described above, but in inappropriate ways. The response a person has depends on the anxiety disorder he or she has. With some disorders , the anxiety is way out of proportion to the threat that triggers it. With others, anxiety may occur even when there isnt a clear threat or trigger. Who does it affect? Some people are more prone to persistent anxiety than others. It tends to run in families, and it affects more younger people than older people, and more women than men. But no age, race, or gender is immune to anxiety problems. Anxiety can be treated The good news is that the anxiety thats disrupting your life can be treated. Check with your healthcare provider and rule out any physical problems that may be causing the anxiety symptoms. If an anxiety disorder is diagnosed seek mental healthcare. This is an illness and it can respond to treatment. Most types of anxiety disorders will respond to "talk therapy" and medicines. Working with your doctor or other healthcare provider, you can develop skills to help you cope with anxiety. You can alsogain the perspective you need to overcome your fears. Note:Good sources of support or guidance canbe found at your local hospital, mental health clinic, or an employee assistance program. How to cope with anxiety If anxiety is wearing you down, here are some things you can do to cope: Keep in mind that you cant control everything about a situation. Change what you can and let the rest take its course. Exerciseits a great way to relieve tension and help your body feel relaxed. Avoid caffeine and nicotine, which can make anxiety symptoms worse. Fight the temptation to turn to alcohol or unprescribed drugs for relief. They only make things worse in the long run. Educate yourself about anxiety disorders. Keep track of helpful online resources and books you can use during stressful periods. Try stress management techniques such as meditation. Consider online or in-person support groups. [employer] last reviewed this educational content on 03/19/2016 [employer]. [address] [place] [address]. All rights reserved. This information is not intended as a substitute for professional medical care. Always follow your healthcare professional's instructions. Understanding the Pain Response Your pain is important. It can slow healing and keep you from being active. You may have acute or chronic pain. Both types of pain respond to treatment. Work with your healthcare professional. Togetheryou can find relief. Types of pain Acute pain is caused by a health problem or injury. The pain usually goes away when its cause is treated. You may have pain: From an illness or injury that needs emergency care After an operation, such as heart surgery During and after the of your baby Chronic pain lasts 3 to 6months or more. It can be caused by a health problem or injury, like arthritis or a shoulder strain. Chronic pain can also exist without a clear cause. Your perception of pain Pain is a complex phenomenon that involves many of the chemicals found naturally in the spinal cord and brain. All pain signals travel to the brain. The brain sends back signals to protect the body. The brain also makesits own painkillers (endorphins). These can help reduce the pain. 1. Pain starts in 1 or more parts of the body. In some cases, the site of the pain is far from its source. 2. Pain signals move through nerves and up the spinal cord. 3. The brain reads the signals as pain. Natural painkillers are released. 4. The feeling of pain can bereduced in this way. [employer] last reviewed this educational content on 07/17/2016 [employer]. [address] [place] [address]. All rights reserved. This information is not intended as a substitute for professional medical care. Always follow your healthcare professional's instructions. Complementary Care for Pain You may find pain relief with complementary care. Look for a licensed or certified professional. Andalways tell your healthcare professional that you are using complementary care. Massage Massage can increase circulation and relaxation. This can help relieve stress and pain. Biofeedback Biofeedback uses instruments to measure the body's physiological activity, like heart rate and muscle activity. This information is used to help you learn to control certain functions, such as relaxingmuscles and helping reduce pain. Chiropractic Chiropractic adjusts the spine and joints. It may help reduce back, neck, or joint pain. Chiropractic may also use mild electrical stimulation, massage, heat , or ultrasound (sound waves). Acupuncture Acupuncture uses thin needles to help treat pain. The treatment may release the bodys own painkillers. Distraction Distraction helps you focus on something besides pain. Try reading a book, watching a movie, or talking with family. Or visit a local attraction. Meditation Meditation helps you focus on words, objects, or ideas. Doing this can calm you and decrease stress. Relaxation Relaxation includes methods like listening to soothing music or relaxation tapes. You might try slow, deep breathing. Imagine a calm scene, like an ocean or mountain, as you breathe. [employer] last reviewed this educational content on 12/17/20181999[address] [employer]. [address] [place] [address]. All rights reserved. This information is not intended as a substitute for professional medical care. Always follow your healthcare professional's instructions. TER (CAD) ELECTRICAL documented in this encounter Progress Notes Mar Medellin - 04/15/2019 1:15 PM CST Venipuncture collection performed by clean technique on the left anticubitus. Total of 1 attempts were made. Slight pressure and a bandage/dressing were applied to the site(s). The patient experienced no complications. The following specimens were processed according to instructions and sent to [facility] laboratories per lab order on 04/15/19: LT BLUE SST RED LAV PPT DK GREEN (LiHep) DK GREEN (SodH) [place] DK BLUE (K2) DK BLUE (S) ACD Blood Culture NIPT/NTD oNeena bae MD - 04/15/2019 1:15 PM CST Cc: Chief Complaint Patient presents with SWELLING Sinus Problem facial pressure INSOMNIA HPI Lakshmi Garcia is a 64 year old female with RA, sarcoidosis (not confirmed yet) , and overlap syndrome who presents today with multiple complaints including sinus pressure and severe nasal congestion, worsening of her facial rash, and widespread pain and swelling. She also reports a rebound in her bp, reflux sxs , anxiety, insomnia, and SOB since running out of her chronic medications a few weeks ago. Of note she saw a Concrete Technician (Dr. Tierney) in [place] 2018 to establish care for her RA, overlap syndrome, and possible sarcoidosis. He did X-rays of her hands and chest and told her she has osteoarthritis, no signs of sarcoidosis, and there was no need to f/u with him per patient report ( see scanned X-ray reports from [facility]). She was previously followed by [facility] Rheumatology but she was lost to f/u with that department when her provider Dr. Jessica left [facility]. Sinus Problem Pain details: Location: Maxillary Quality: Pressure Severity: Severe Timing: Constant Duration: years but much worse the past month or so. Progression: Worsening Chronicity: Chronic Context comment: Marked nasal hypertrophy and deformity associated with presumed sarcoidosis Relieved by: Nothing Ineffective treatments: Saline sprays, sitting up, warm compresses and lying down Associated symptoms: congestion, fatigue, mouth breathing, rhinorrhea, shortness of breath and snoring Associated symptoms: no chest pain, no chills, no cough, no ear pain, no fever, no headaches, no hoarse voice, no nausea, no sneezing, no sore throat, no swollen glands, no tooth pain, no vertigo, no vomiting and no wheezing Congestion: Location: Nasal Interferes with sleep: yes Interferes with eating/drinking: yes Rhinorrhea: Quality: Clear Risk factors comment: Nasal deformity/hypertrophy related to her CTD, COPD Pain The pain is a chronic problem. The patient reports the pain started more than 1 year ago. No history was reported. The pain occurs constantly. The problem has been rapidly worsening since onset. Pain is present in the left shoulder, left arm, left elbow, left wrist, left hand, left fingers, right arm, right elbow, right shoulder, right wrist, right hand, right fingers, right ankle , right foot, left foot, left ankle, left knee, right knee and back. The pain is described as aching. Severity ofthe pain is described as severe. Associated symptoms include: joint swelling, limited range of motion and stiffness. Associated symptoms include no fever, no inability to bear weight, no numbness andno tingling. Muscle spasms of her back Pain is aggravated by activity and cold. She has tried NSAIDS, OTC ointments, OTC pain meds, rest, positioning, elevation, movement, compression and heat for the pain. The treatment provided no relief. Past medical history includes osteoarthritis and rheumatoid arthritis (and overlap syndrome w/ possible sarcoidosis also). Anxiety Presents for follow-up visit. Symptoms include decreased concentration, excessive worry, insomnia, nervous/anxious behavior, panic, restlessness and shortness of breath. Patient reports no chest pain, nausea or suicidal ideas. Symptoms occur constantly. The severity of symptoms is causing significant distress and interfering with daily activities. The quality of sleep is fair. Nighttime awakenings: one to two. Compliance with medications is 0-25% (she has been out of her fluoxetine and buspirone for the past few weeks). Treatment side effects: She denies that her medications were causing any adverse side effects. GERD She complains of belching and heartburn. She reports no chest pain, no coughing , no hoarse voice, nonausea, no sore throat or no wheezing. This is a chronic problem. The current episode started more than 1 year ago. The problem occurs constantly. The problem has been rapidly worsening (since she ran out of her ranitidine). The symptoms are aggravated by certain foods and stress. Associated symptoms include fatigue. There are no known risk factors. She has tried a histamine-2 antagonist for the symptoms. The treatment provided significant relief. Shortness of Breath Severity: Mild Timing: Intermittent Progression: Worsening (since running out of her rescue inhaler recently) Chronicity: Chronic Relieved by: Nothing Ineffective treatments: Sitting up and rest Associated symptoms: rash (chronic facial rash that has been burning lately) Associated symptoms: no chest pain, no cough, no ear pain, no fever, no headaches, no hemoptysis, noPND, no sore throat, no sputum production, no swollen glands, no vomiting and no wheezing Risk factors comment: COPD Allergies Lakshmi is allergic to tylenol [acetaminophen]. Medications Outpatient Medications Prior to Visit Medication Sig Dispense Refill traMADol 50 mg tablet Take 1 tablet by mouth every 8 (eight) hours as needed (moderate-severe pain). 21 tablet 0 amLODIPine 5 mg tablet Take 1 tablet by mouth daily. 30 tablet 5 busPIRone 15 mg tablet Take 1 tablet by mouth 2 (two) times daily. 60 tablet 5 ranitidine 150 mg tablet Take 1 tablet by mouth 2 (two) times daily. 60 tablet 11 albuterol 90 mcg/actuation inhaler Inhale 2 Puffs every 6 (six) hours as needed for Wheezing or Shortness of Breath. 8.5 g 11 proMETHazine 25 mg tablet Take 1 tablet by mouth every 6 (six) hours as needed for Nausea and Vomiting (N/V). 20 tablet 0 ergocalciferol, vitamin d2, 50,000 unit capsule Take 1 capsule by mouth weekly. 12 capsule 0 Diclofenac Sodium 1 % gel Apply 1gram to affected area twice daily 100 g 1 apixaban 5 mg tablet Take 10 mg po bid x 7 days then 5 mg bid for 3 months 104 tablet 0 FLUoxetine (PROZAC) 20 mg capsule Take 1 capsule by mouth daily. 30 capsule 0 predniSONE 5 mg tablet Take 1 tablet by mouth daily. 30 tablet 1 traZODONE 50 mg tablet Take 1 tablet by mouth at bedtime. 30 tablet 1 ergocalciferol, vitamin D2, (VITAMIN D ORAL) Take 1 capsule by mouth weekly. No facility-administered medications prior to visit. Histories Past Medical History: Diagnosis Date Anemia Anxiety Bipolar 1 disorder Cholelithiasis without cholecystitis 05/17/2018 Chronic sinusitis 05/17/2018 Depression Detrusor instability of bladder 09/13/2018 Fibroid uterus 05/17/2018 H. pylori infection H/O: CVA (cerebrovascular accident) 05/17/2018 Hearing loss HTN (hypertension) LAD (lymphadenopathy), hilar 05/17/2018 Neurofibromatosis 03/20/2018 ? (mentioned in [facility] hospitalization records 02/2018) PTSD (post-traumatic stress disorder) Pulmonary embolism 02/2018 RA (rheumatoid arthritis) Sarcoidosis 06/14/2018 Urge incontinence 09/13/2018 Urine induced contact dermatitis 09/13/2018 Past Surgical History: Procedure Laterality Date SECTION SURGICAL HISTORY OTHER (SHX) ORIF left leg w/ retained hardware Social History Socioeconomic History Marital status: Single Spouse name: Not on file Number of children: Not on file Years of education: Not on file Highest education level: Not on file Occupational History Not on file Social Needs Financial resource strain: Not on file Food insecurity: Worry: Not on file Inability: Not on file Transportation needs: Medical: Not on file Non-medical: Not on file Tobacco Use Smoking status: Former Smoker Smokeless tobacco: Never Used Substance and Sexual Activity Alcohol use: No Drug use: No Sexual activity: Not on file Lifestyle Physical activity: Days per week: Not on file Minutes per session: Not on file Stress: Not on file Relationships Social connections: Talks on phone: Not on file Gets together: Not on file Attends moravian service: Not on file Active member of club or organization: Not on file Attends meetings of clubs or organizations: Not on file Relationship status: Not on file Intimate partner violence: Fear of current or ex partner: Not on file Emotionally abused: Not on file Physically abused: Not on file Forced sexual activity: Not on file Other Topics Concern Not on file Social History Narrative 03/05/18 - was homeless in [place] [facility] and now moved here to [place] to live with sister Single, living alone, no kids Disabled Family History Problem Relation Age of Onset Stroke Mother Heart Mother Hypertension Sister Heart Father Hypertension Brother Review of Systems Constitutional: Positive for fatigue. Negative for chills and fever. HENT: Positive for congestion, rhinorrhea and sinus pressure. Negative for ear pain, hoarse voice, sneezing and sore throat. Eyes: Negative. Respiratory: Positive for snoring and shortness of breath. Negative for cough, hemoptysis, sputum production and wheezing. Breasts: Negative. Cardiovascular: Negative for chest pain and PND. Gastrointestinal: Positive for abdominal distention (bloating) and heartburn. Negative for nausea and vomiting. Genitourinary: Negative. Musculoskeletal: Positive for arthralgias, joint swelling, myalgias (back muscle spasms) and stiffness. Skin: Positive for rash (chronic facial rash that has been burning lately). Neurological: Negative for vertigo, tingling, numbness and headaches. Psychiatric/Behavioral: Positive for decreased concentration, dysphoric mood and sleep disturbance. Negative for suicidal ideas. The patient is nervous/ anxious and has insomnia. Endocrine: Endocrine negative Vital Signs BP 137/82 | Pulse 87 | Temp 37.1 C (98.7 F) (Tympanic) | Ht 5' 2" (1.575 m) | Wt 134 lb (60.8 kg) | SpO2 93% | BMI 24.51 kg/m Physical Exam Constitutional: She is oriented to person, place, and time. HENT: Right Ear: Tympanic membrane and ear canal normal. Left Ear: Tympanic membrane and ear canal normal. Nose: Mucosal edema, rhinorrhea (clear), sinus tenderness and nasal deformity ( nasal hypertrophy/deformity with an overyling extensive discolored malar on the nose and cheeks) present. Right sinus exhibits maxillary sinus tenderness. Left sinus exhibits maxillary sinus tenderness. Mouth/Throat: Mucous membranes are normal. Eyes: Pupils are equal, round, and reactive to light. Conjunctivae are normal. No scleral icterus. Neck: Neck supple. No thyromegaly present. Cardiovascular: Normal rate, regular rhythm, normal heart sounds and intact distal pulses. Exam reveals no gallop and no friction rub. No murmur heard. Pulmonary/Chest: Effort normal and breath sounds normal. She has no wheezes. She has no rales. Abdominal: Soft. Bowel sounds are normal. She exhibits no distension and no mass. There is no tenderness. There is no guarding. Musculoskeletal: She exhibits no edema. Right shoulder: She exhibits decreased range of motion, tenderness, bony tenderness and crepitus. Left shoulder: She exhibits decreased range of motion, tenderness, bony tenderness and crepitus. Left elbow: She exhibits decreased range of motion, swelling and deformity. Left wrist: She exhibits decreased range of motion, tenderness, bony tenderness, swelling and effusion. Right knee: She exhibits decreased range of motion and bony tenderness. Tenderness found. Left knee: She exhibits decreased range of motion and bony tenderness. Tenderness found. Cervical back: She exhibits decreased range of motion, tenderness, pain and spasm. She exhibitsno bony tenderness. Thoracic back: She exhibits decreased range of motion, tenderness, pain and spasm. She exhibitsno bony tenderness. Right hand: She exhibits decreased range of motion, tenderness, bony tenderness, deformity and swelling. Left hand: She exhibits decreased range of motion, tenderness, bony tenderness, deformity and swelling. Right foot: There is tenderness and bony tenderness. Left foot: There is tenderness and bony tenderness. Lymphadenopathy: She has no cervical adenopathy. Neurological: She is alert and oriented to person, place, and time. Grossly non-focal Skin: Skin is warm and dry. Rash (generalized hypopigmented, hyperpigmented, and erythematous plaques but worst on nose) noted. No pallor. Psychiatric: Her speech is normal and behavior is normal. Judgment and thought content normal. Her mood appears anxious. She is not actively hallucinating. Thought content is not paranoid and not delusional. Cognition and memory are normal. She exhibits a depressed mood. She expresses no homicidal andno suicidal ideation. She is attentive. Nursing note and vitals reviewed. Assessment/Plan Diagnoses and all orders for this visit: Overlap syndrome, Sarcoidosis (possible), Arthralgia of multiple joints, Swelling of multiple joints Discussed the Ddx of her musculoskeletal symptoms. Repeat lab work-up as noted and will try to get her re-established with [facility] Rheumatology DIANNA. Ice alt with/OR heat to painful areas. Prednisone and diclofenac gel as noted. - Diclofenac Sodium 1 % gel; Apply 1gram to affected area twice daily - predniSONE 10 mg tablet; 5 tabs po qdaily x 2 days, 4 qdaily x 3 days, 3 qdaily x 3 days, 2 qdaily x 3 days, x 1 qdaily x 3 days, then start 5mg daily script - predniSONE 5 mg tablet; Take 1 tablet by mouth daily. - CBC WITH DIFF - THYROID STIMULATING HORMONE - VITAMIN D, 25-OH - ANTI-NUCLEAR ANTIBODY SCREEN - ANTI-DOUBLE STRANDED DNA - ANTI-SSB(LA) - ANTI-SSA(RO) - ANTI-SM/INTERNET MARKETING CONSULTANT - ANTI-RIBOSOMAL P - ANTIPHOSPHOLIPID AB PANEL - C3 COMPLEMENT - C4 COMPLEMENT - C-REACTIVE PROTEIN - CREATINE KINASE - CYCLIC CITRULLINATED PEPTIDE - RHEUMATOID FACTOR - SEDIMENTATION RATE - URIC ACID - CONSULT/REFERRAL RHEUMATOLOGY Back muscle spasm There are no radicular symptoms to suggest spinal cord/spinal nerve involvement in the patient's symptoms so no spine imaging was recommended at this time. Muscle relaxant therapy was prescribed as noted. Prednisone noted above should also be helpful. Imaging, PT referral, or Orthopaedics referral can be considered if the patient's symptoms don't improve. - methocarbamol 750 mg tablet; Take 1 tablet by mouth 4 (four) times daily as needed (muscle pain or spasm). Essential hypertension Bp is not quite at goal of <130/<80. Restart amlodipine. Low sodium diet /DASH diet. Exercise as tolerated. The patient was instructed to self monitor her blood pressure once daily varying thetimes when it is checked and to bring the record of readings to each office visit. The patient should follow-up sooner if the blood pressure is trending >/=130/80. - amLODIPine 5 mg tablet; Take 1 tablet by mouth daily. - CBC WITH DIFF - COMP. METABOLIC PANEL (29734) - THYROID STIMULATING HORMONE - LIPID PANEL (22275)(TOTAL CHOLESTEROL, TRIGLYCERIDES, HDL) Anxiety, Chronic insomnia Restart prior psychotropic medications (fluoxetine, trazodone, buspirone) given then were effective. Declines referral for counseling or Psychiatry care at this time. Will continue to monitor the patient's progress. The patient understands she can follow-up sooner if her symptoms rebound or if other mental health issues develop. - busPIRone 15 mg tablet; Take 1 tablet by mouth 2 (two) times daily. - FLUoxetine (PROZAC) 20 mg capsule; Take 1 capsule by mouth daily. - traZODone 50 mg tablet; Take 1 tablet by mouth at bedtime. - THYROID STIMULATING HORMONE Hypovitaminosis D Restart vit D supplementation. Will reassess the patient's vitamin D and calcium level. - ergocalciferol, vitamin d2, 1,250 mcg (50,000 unit) capsule; Take 1 capsule by mouth weekly. - COMP. METABOLIC PANEL (19991) - VITAMIN D, 25-OH Gastroesophageal reflux disease without esophagitis The pathophysiology of reflux was discussed/reviewed with the patient. I reiterated anti-reflux measures such as raising the head of the bed, avoiding tight clothing or belts, avoiding eating late at night and not lying down shortly after mealtime were discussed. The patient was counseled to avoid ASA, NSAID's, caffeine, peppermints, alcohol and tobacco. I explained that although PPI's are extremely effective, they can have serious side effects and these were reviewed with the patient. Restart pharmacotherapy w/ an H2-anh-- famotidine. UGI series is not indicated unless a therapeutic trial is unsuccessful, and a GI consult and EGD are not indicated unless symptoms persist despite therapy.The patient should alert me if there are persistent symptoms, dysphagia, weight loss, or GI bleeding. - famotidine 20 mg tablet; Take 1 tablet by mouth 2 (two) times daily. Diabetes mellitus screening - GLYCOSYLATED HEMOGLOBIN (A1C) Chronic obstructive pulmonary disease, unspecified COPD type Restart rescue inhaler which she only needed occasionally PRN prior to running out of it. The patient understands she should follow-up sooner if there is any rebound in her COPD symptoms. - albuterol 90 mcg/actuation inhaler; Inhale 2 Puffs every 6 (six) hours as needed for Wheezing or Shortness of Breath. Nasal obstruction, Nasal hypertrophy, Sarcoidosis (possible) Again recommended evaluation and management by an ENT specialist. Referral initiated. Consider sleep study. - CONSULT/REFERRAL ENT Atypical rash Suspect her rash is sarcoidosis related. Needs skin biopsy for confirmation. - CONSULT/REFERRAL DERMATOLOGY Plan of care, desired health behaviors, goals, Ddx, and any prescribed medications were discussed with the patient. Education resources and self- management tools were provided and reviewed with the AVS. Patient/guardian/ family verbalized understanding and agrees to the plan of care. Barriers to care: None. Ability to manage care: Good. Advanced care planning (living will) information was not given/offered to the patient to review for discussion at a future visit. If applicable, the [place] PMPdatabase was accessed to review any controlled substance prescription claims data. If the patient is taking prescribed medications, the [employer] prescription claims data in [employer] was reviewed to assess patient compliance with the medication treatment plan. Follow-up: Return soon for annual wellness physical/health maintenance review ( 30 min). Follow-up sooner if any problems or concerns. Scribe Attestdebi Hawkins, Ladonna Kiser , am scribing for, and in the presence of, Neena Rojas MD who performed the services described here-in. Ladonna Kiser, April 15, 2019, 1:39 PM Physician Attestation Neena Hawkins MD, personally performed the services described in this documentation , as scribed by, Ladonna Kiser in my presence and it is both accurate and complete. Neena Rojas MD April 15, 2019, 1:39 PM documented in this encounter Plan of Treatment Date Type Specialty Care Team Description 05/08/2019 Office Visit Dermatology Aimee Latif MD [address] [place] [phone] 07/17/2019 Office Visit Rheumatology Rock Koenig, DO [address] [place] [address] [phone] Name Type Priority Associated Diagnoses Date/Time ANTI-NUCLEAR LAB Routine Arthralgia of multiple 04/15/2019 1:52 PM ANTIBODY-PATHOLOGIST joints DRAFTER (CAD) ELECTRICAL INTERPRETATION Swelling of multiple joints Overlap syndrome Essential hypertension Anxiety Hypovitaminosis D: 19(03/2018) Gastroesophageal reflux disease without esophagitis Chronic insomnia Name Type Priority Associated Diagnoses Order Schedule ANTI-NUCLEAR LAB Routine Arthralgia of multiple Expected: 04/16/2019, ANTIBODY-PATHOLOGIST joints Expires: 04/16/2020 INTERPRETATION Swelling of multiple joints Overlap syndrome Essential hypertension Anxiety Hypovitaminosis D: 19(03/2018) Gastroesophageal reflux disease without esophagitis Chronic insomnia Health Maintenance Due Date Last Done Comments [...] encounter Procedures Procedure Name Priority Date/Time Associated Comments Diagnosis ANTIPHOSPHOLIPID AB Routine 04/15/2019 1:52 Arthralgia of Results for this PANEL PM DRAFTER (CAD) ELECTRICAL multiple joints procedure are in Swelling of the results multiple joints section. Overlap syndrome Essential hypertension Anxiety Hypovitaminosis D: 19(03/2018) Gastroesophageal reflux disease without esophagitis Chronic insomnia CBC WITH DIFFERENTIAL Routine 04/15/2019 1:52 Arthralgia of Results for this PM DRAFTER (CAD) ELECTRICAL multiple joints procedure are in Swelling of the results multiple joints section. Overlap syndrome Essential hypertension Anxiety Hypovitaminosis D: 19(03/2018) Gastroesophageal reflux disease without esophagitis Chronic insomnia ANTI-DOUBLE STRANDED DNA Routine 04/15/2019 1:52 Arthralgia of Results for this PM DRAFTER (CAD) ELECTRICAL multiple joints procedure are in Swelling of the results multiple joints section. Overlap syndrome Essential hypertension Anxiety Hypovitaminosis D: 19(03/2018) Gastroesophageal reflux disease without esophagitis Chronic insomnia ANTI-SSB(LA) Routine 04/15/2019 1:52 Arthralgia of Results for this PM DRAFTER (CAD) ELECTRICAL multiple joints procedure are in Swelling of the results multiple joints section. Overlap syndrome Essential hypertension Anxiety Hypovitaminosis D: 19(03/2018) Gastroesophageal reflux disease without esophagitis Chronic insomnia ANTI-SSA(RO) Routine 04/15/2019 1:52 Arthralgia of Results for this PM DRAFTER (CAD) ELECTRICAL multiple joints procedure are in Swelling of the results multiple joints section. Overlap syndrome Essential hypertension Anxiety Hypovitaminosis D: 19(03/2018) Gastroesophageal reflux disease without esophagitis Chronic insomnia ANTI-SM/INTERNET MARKETING CONSULTANT Routine 04/15/2019 1:52 Arthralgia of Results for this PM DRAFTER (CAD) ELECTRICAL multiple joints procedure are in Swelling of the results multiple joints section. Overlap syndrome Essential hypertension Anxiety Hypovitaminosis D: 19(03/2018) Gastroesophageal reflux disease without esophagitis Chronic insomnia ANTI-RIBOSOMAL P Routine 04/15/2019 1:52 Arthralgia of Results for this PM DRAFTER (CAD) ELECTRICAL multiple joints procedure are in Swelling of the results multiple joints section. Overlap syndrome Essential hypertension Anxiety Hypovitaminosis D: 19(03/2018) Gastroesophageal reflux disease without esophagitis Chronic insomnia VITAMIN D, 25-OH Routine 04/15/2019 1:52 Arthralgia of Results for this PM DRAFTER (CAD) ELECTRICAL multiple joints procedure are in Swelling of the results multiple joints section. Overlap syndrome Essential hypertension Anxiety Hypovitaminosis D: 19(03/2018) Gastroesophageal reflux disease without esophagitis Chronic insomnia CYCLIC CITRULLINATED Routine 04/15/2019 1:52 Arthralgia of Results for this PEPTIDE PM DRAFTER (CAD) ELECTRICAL multiple joints procedure are in Swelling of the results multiple joints section. Overlap syndrome Essential hypertension Anxiety Hypovitaminosis D: 19(03/2018) Gastroesophageal reflux disease without esophagitis Chronic insomnia ANTI-NUCLEAR ANTIBODY Routine 04/15/2019 1:52 Arthralgia of Results for this SCREEN PM DRAFTER (CAD) ELECTRICAL multiple joints procedure are in Swelling of the results multiple joints section. Overlap syndrome Essential hypertension Anxiety Hypovitaminosis D: 19(03/2018) Gastroesophageal reflux disease without esophagitis Chronic insomnia GLYCOSYLATED HEMOGLOBIN Routine 04/15/2019 1:52 Abnormal finding of Results for this (A1C) PM DRAFTER (CAD) ELECTRICAL blood chemistry, procedure are in unspecified the results Arthralgia of section. multiple joints Swelling of multiple joints Overlap syndrome Essential hypertension Anxiety Hypovitaminosis D: 19(03/2018) Gastroesophageal reflux disease without esophagitis Chronic insomnia CBC WITH DIFFERENTIAL Routine 04/15/2019 1:52 Arthralgia of Results for this PM DRAFTER (CAD) ELECTRICAL multiple joints procedure are in Swelling of the results multiple joints section. Overlap syndrome Essential hypertension Anxiety Hypovitaminosis D: 19(03/2018) Gastroesophageal reflux disease without esophagitis Chronic insomnia SEDIMENTATION RATE Routine 04/15/2019 1:52 Arthralgia of Results for this PM DRAFTER (CAD) ELECTRICAL multiple joints procedure are in Swelling of the results multiple joints section. Overlap syndrome Essential hypertension Anxiety Hypovitaminosis D: 19(03/2018) Gastroesophageal reflux disease without esophagitis Chronic insomnia LIPID PANEL Routine 04/15/2019 1:52 Arthralgia of Results for this (37480)(TOTAL PM DRAFTER (CAD) ELECTRICAL multiple joints procedure are in CHOLESTEROL, Swelling of the results TRIGLYCERIDES, HDL) multiple joints section. Overlap syndrome Essential hypertension Anxiety Hypovitaminosis D: 19(03/2018) Gastroesophageal reflux disease without esophagitis Chronic insomnia COMP. METABOLIC PANEL Routine 04/15/2019 1:52 Arthralgia of Results for this (66341) PM DRAFTER (CAD) ELECTRICAL multiple joints procedure are in Swelling of the results multiple joints section. Overlap syndrome Essential hypertension Anxiety Hypovitaminosis D: 19(03/2018) Gastroesophageal reflux disease without esophagitis Chronic insomnia THYROID STIMULATING Routine 04/15/2019 1:52 Arthralgia of Results for this HORMONE PM DRAFTER (CAD) ELECTRICAL multiple joints procedure are in Swelling of the results multiple joints section. Overlap syndrome Essential hypertension Anxiety Hypovitaminosis D: 19(03/2018) Gastroesophageal reflux disease without esophagitis Chronic insomnia C4 COMPLEMENT Routine 04/15/2019 1:52 Arthralgia of Results for this PM DRAFTER (CAD) ELECTRICAL multiple joints procedure are in Swelling of the results multiple joints section. Overlap syndrome Essential hypertension Anxiety Hypovitaminosis D: 19(03/2018) Gastroesophageal reflux disease without esophagitis Chronic insomnia C3 COMPLEMENT Routine 04/15/2019 1:52 Arthralgia of Results for this PM DRAFTER (CAD) ELECTRICAL multiple joints procedure are in Swelling of the results multiple joints section. Overlap syndrome Essential hypertension Anxiety Hypovitaminosis D: 19(03/2018) Gastroesophageal reflux disease without esophagitis Chronic insomnia C-REACTIVE PROTEIN Routine 04/15/2019 1:52 Arthralgia of Results for this PM DRAFTER (CAD) ELECTRICAL multiple joints procedure are in Swelling of the results multiple joints section. Overlap syndrome Essential hypertension Anxiety Hypovitaminosis D: 19(03/2018) Gastroesophageal reflux disease without esophagitis Chronic insomnia RHEUMATOID FACTOR Routine 04/15/2019 1:52 Arthralgia of Results for this PM DRAFTER (CAD) ELECTRICAL multiple joints procedure are in Swelling of the results multiple joints section. Overlap syndrome Essential hypertension Anxiety Hypovitaminosis D: 19(03/2018) Gastroesophageal reflux disease without esophagitis Chronic insomnia URIC ACID Routine 04/15/2019 1:52 Arthralgia of Results for this PM DRAFTER (CAD) ELECTRICAL multiple joints procedure are in Swelling of the results multiple joints section. Overlap syndrome Essential hypertension Anxiety Hypovitaminosis D: 19(03/2018) Gastroesophageal reflux disease without esophagitis Chronic insomnia CREATINE KINASE Routine 04/15/2019 1:52 Arthralgia of Results for this PM DRAFTER (CAD) ELECTRICAL multiple joints procedure are in Swelling of the results multiple joints section. Overlap syndrome Essential hypertension Anxiety Hypovitaminosis D: 19(03/2018) Gastroesophageal reflux disease without esophagitis Chronic insomnia documented in this encounter Results CBC WITH DIFFERENTIAL (04/15/2019 1:52 PM DRAFTER (CAD) ELECTRICAL) WBC 3.24 (L) 4.30 - 11.10 [facility] 10*3/L [facility] RBC 5.51 (H) 3.93 - 5.25 [facility] 10*6/L [facility] HGB 14.7 11.6 - 15.0 [facility] g/dL [facility] HCT 45.9 (H) 35.7 - 45.2 % [facility] MCV 83.3 80.6 - 95.5 fL [facility] MCH 26.7 25.9 - 32.8 pg [facility] MCHC 32.0 31.6 - 35.1 [facility] g/dL [facility] RDW-SD 47.8 39.0 - 49.9 fL [facility] RDW-CV 15.9 (H) 12.0 - 15.5 % [facility] PLT 267 166 - 358 [facility] 10*3/L [facility] MPV 10.5 9.5 - 12.9 fL [facility] NRBC/100 WBC 0.0 0.0 - 10.0 /100 [facility] WBCs [facility] NRBC x10^3 <0.01 10*3/L [facility] GRAN MAT (NEUT) % 56.2 % [facility] IMM GRAN % 0.00 % [facility] LYMPH % 24.4 % [facility] MONO % 14.5 % [facility] EOS % 4.3 % [facility] BASO % 0.6 % [facility] GRAN MAT x10^3(ANC) 1.82 (L) 1.88 - 7.[address]/uL [facility] IMM GRAN x10^3 <0.03 0.00 - 0.06 [facility] 10*3/uL [facility] LYMPH x10^3 0.79 (L) 1.32 - 3.29 [facility] 103/uL [facility] MONO x10^3 0.47 0.33 - 0.[address]/uL [facility] EOS x10^3 0.14 0.03 - 0.[address]/[facility] LABORATORY BASO x10^3 <0.03 0.01 - 0.[address] LABORATORY Specimen Blood - ARM, LEFT Performing Organization Address [facility] Phone Number [facility] CLIA: [id number], [address] [place] [address] URIC ACID (04/15/2019 1:52 PM DRAFTER (CAD) ELECTRICAL) URIC ACID 4.8 2.9 - 6.0 mg/dL [facility] Specimen Blood - ARM, LEFT Performing Organization Address [facility] Phone Number [facility] CLIA: [id number], [address] [place] [address] SEDIMENTATION RATE (04/15/2019 1:52 PM DRAFTER (CAD) ELECTRICAL) ESR 21 (H) 0 - 20 mm/HR [facility] Specimen Blood - ARM, LEFT Performing Organization Address [facility]/Zipcode Phone Number [facility] CLIA: [id number], [address] [place] [address] RHEUMATOID FACTOR (04/15/2019 1:52 PM DRAFTER (CAD) ELECTRICAL) RF 20 (H) <20 IU/mL [facility] Specimen Blood - ARM, LEFT Performing Organization Address City/[facility]/Zipcode Phone Number [facility] CLIA: [id number], [address] [place] [address] [id number] [phone] [facility] CYCLIC CITRULLINATED PEPTIDE (04/15/2019 1:52 PM DRAFTER (CAD) ELECTRICAL) CCP IgG/IgA 8.9 0.0 - 20.0 U [facility] Specimen Blood - ARM, LEFT Narrative Performed At INTERPRETATION: UNITS: [facility] Negative <20 Weak Positive 20-39 Moderate Positive 40-59 Strong Positive >=60 A positive result indicates the presence of CCP IgG antibodies and suggests the possibility of RA antibodies and suggests the possibility of SLE. A negative result indicates no CCP IgG antibodies or levels below the cut-off of the assay. Performing Organization Address City/[facility] Phone Number [facility] [address] [place] [phone] [facility] [address] CREATINE KINASE (04/15/2019 1:52 PM DRAFTER (CAD) ELECTRICAL) CK 70 33 - 194 U/L [facility] Specimen Blood - ARM, LEFT Performing Organization Address [facility] Phone Number [facility] CLIA: [id number], [address] [place] [address] C-REACTIVE PROTEIN (04/15/2019 1:52 PM DRAFTER (CAD) ELECTRICAL) CRP 0.4 <0.8 mg/dL [facility] Specimen Blood - ARM, LEFT Performing Organization Address [facility] Phone Number [facility] CLIA: [id number], [address] [place] [address] [phone] [facility] C4 COMPLEMENT (04/15/2019 1:52 PM DRAFTER (CAD) ELECTRICAL) C4 47 20 - 59 mg/dL [facility] Specimen Blood - ARM, LEFT Performing Organization Address [facility] Phone Number [facility] CLIA: [id number], [address] [place] [address] [phone] [facility] C3 COMPLEMENT (04/15/2019 1:52 PM DRAFTER (CAD) ELECTRICAL) C3 125 86 - 184 mg/dL [facility] Specimen Blood - ARM, LEFT Performing Organization Address [facility] Phone Number [facility] CLIA: [id number], [address] [place], [place] [address] [phone] [facility] ANTIPHOSPHOLIPID AB PANEL (04/15/2019 1:52 PM DRAFTER (CAD) ELECTRICAL) aPS IgG 3.4 0.0 - 15.0 GPL [facility] aPS IgM 2.3 0.0 - 15.0 MPL [facility] aPS IgA 2.7 0.0 - 15.0 APL ANTIPHOSPHOLIPID STANDARDIZATION LABORAT. aPI IgG 4.1 0.0 - 15.0 GPL ANTIPHOSPHOLIPID STANDARDIZATION LABORAT. aPI IgM 4.1 0.0 - 15.0 MPL ANTIPHOSPHOLIPID STANDARDIZATION LABORAT. aPI IgA 3.4 0.0 - 15.0 APL ANTIPHOSPHOLIPID STANDARDIZATION LABORAT. aPG IgG 4.4 0.0 - 15.0 GPL ANTIPHOSPHOLIPID STANDARDIZATION LABORAT. aPG IgM 2.6 0.0 - 15.0 MPL ANTIPHOSPHOLIPID STANDARDIZATION LABORAT. aPG IgA 5.5 0.0 - 15.0 APL ANTIPHOSPHOLIPID STANDARDIZATION LABORAT. Specimen Blood - ARM, LEFT Narrative Performed At INTERPRETATION: ANTIPHOSPHOLIPID STANDARDIZATION LABORAT. IgM IgM IgA (GPL Units) (MPL Units) (APL Units) Negative Values: 0.0-15.0 0.0-15.0 0.0-15.0 Low Values: >15.0 &=25.0 >15.0 &=25.0 >15.0 &=25.0 Medium Values: >25.0 &=90.0 >25.0 &=90.0 >25.0 &=90.0 High Positive Values: >90.0 >90.0 >90.0 NOTE: Antibodies to negatively charged phospholipids are frequently see in the sera of patients with Antiphospholipid Syndrome (APS) or Systemic Lupus Erytematosus (SLE). Performing Organization Address City/State/[facility] Phone Number ANTIPHOSPHOLIPID [address] [place] [address] STANDARDIZATION LABORAT. [address] [employer] [address] ANTI-RIBOSOMAL P (04/15/2019 1:52 PM DRAFTER (CAD) ELECTRICAL) Anti-RiboP Negative Negative [facility] Specimen Blood - ARM, LEFT Narrative Performed At Positive - Antibody detected. [facility] Negative - No antibody detected. Performing Organization Address City/State/Zipcode Phone Number [facility] CLIA: [id number], [address] [place] [address] [phone] [facility] ANTI-SM/INTERNET MARKETING CONSULTANT (04/15/2019 1:52 PM DRAFTER (CAD) ELECTRICAL) ANTI-SMRNP Negative Negative [facility] Specimen Blood - ARM, LEFT Narrative Performed At Positive - Antibody detected. [facility] Negative - No antibody detected. Performing Organization Address City/[facility] Phone Number [facility] CLIA: [id number], [address] [place] [phone] [facility] ANTI-SSA(RO) (04/15/2019 1:52 PM DRAFTER (CAD) ELECTRICAL) ANTI-SSA(RO) Negative Negative [facility] Specimen Blood - ARM, LEFT Narrative Performed At Positive - Antibody detected. [facility] Negative - No antibody detected. Performing Organization Address [facility] Phone Number [facility] CLIA: [id number], [address] [place] [address] [phone] [facility] ANTI-SSB(LA) (04/15/2019 1:52 PM DRAFTER (CAD) ELECTRICAL) Anti-SSB(LA) Negative Negative [facility] Specimen Blood - ARM, LEFT Narrative Performed At Positive - Antibody detected. [facility] Negative - No antibody detected. Performing Organization Address [facility] Phone Number [facility] CLIA: [id number], [address] [place] [phone] [facility] ANTI-DOUBLE STRANDED DNA (04/15/2019 1:52 PM DRAFTER (CAD) ELECTRICAL) ANTI-DSDNA <1.0 0.0 - 4.0 IU/mL [facility] Specimen Blood - ARM, LEFT Narrative Performed At Negative < or=4 IU/mL [facility] Positive > or=10 IU/mL Indeterminate 5-9 IU/mL Performing Organization Address [facility] Phone Number [facility] CLIA: [id number], [address] [place] [phone] [facility] ANTI-NUCLEAR ANTIBODY SCREEN (04/15/2019 1:52 PM DRAFTER (CAD) ELECTRICAL) FERNANDA Negative Negative [facility] Specimen Blood - ARM, LEFT Narrative Performed At Negative - No Anti-Nuclear Antibodies detected by IFA. [facility] Positive - FERNANDA IFA screen performed with a 1:80 dilution in adults and a 1:40 dilution in pediatrics. Any FERNANDA "Positive" will have titer performed and reported separately. Negative - No Anti-Nuclear Antibodies detected by IFA. Positive - FERNANDA IFA screen performed with a 1:80 dilution in adults and a 1:40 dilution in pediatrics. Any FERNANDA "Positive" will have titer performed and reported separately. Performing Organization Address City/State/Zipcode Phone Number [facility] CLIA: [id number], [address] [place], [place] [address] [phone] [facility] VITAMIN D, 25-OH (04/15/2019 1:52 PM DRAFTER (CAD) ELECTRICAL) Pathologist [facility] VIT D 25OH 16 (L) 25 - 80 ng/mL [facility] Specimen Blood - ARM, LEFT Narrative Performed At Deficiency: <20 ng/mL [facility] Insufficiency: 20-24 ng/mL Optimal: 25-80 ng/mL Performing Organization Address City/[facility] Phone Number [facility] CLIA: [id number], [address] [place], [place] [address] [facility] LIPID PANEL (61422)(TOTAL CHOLESTEROL, TRIGLYCERIDES, HDL) (04/15/2019 1:52 PM DRAFTER (CAD) ELECTRICAL) CHOL 223 (H) 120 - 200 mg/dL [facility] HDL 42 (L) >50 mg/dL [facility] HDLC RATIO 5.3 (H) <=4.5 [facility] TRIG 201 (H) 30 - 170 mg/dL [facility] LDL CHOL 141 <=160 mg/dL [facility] VLDL 40 5 - 60 mg/dL [facility] Specimen Blood - ARM, LEFT Performing Organization Address City/[facility] Phone Number [facility] CLIA: [id number], [address] [place] [address] GLYCOSYLATED HEMOGLOBIN (A1C) (04/15/2019 1:52 PM DRAFTER (CAD) ELECTRICAL) [facility] Signature HGB A1C 6.2 (H) 4.0 - 6.0 % NGSP [facility] Specimen Blood - ARM, LEFT Narrative Performed At %A1C (NGSP) Interpretation (ADA) [facility] 4.8-5.6 Normal or (Non-Diabetic Range) 5.7-6.4 Increased Risk (Pre-Diabetic) >6.5 Diabetes Indicated Performing Organization Address City/[facility] Phone Number [facility] CLIA: [id number], [address] [place] [address] THYROID STIMULATING HORMONE (04/15/2019 1:52 PM DRAFTER (CAD) ELECTRICAL) TSH 2.35 0.45 - 4.70 mIU/L [facility] Specimen Blood - ARM, LEFT Performing Organization Address City/[facility] Phone Number [facility] CLIA: [id number], [address] [place] [address] COMP. METABOLIC PANEL (72052) (04/15/2019 1:52 PM DRAFTER (CAD) ELECTRICAL) NA 139 135 - 145 [facility] mmol/L [facility] K 3.8 3.5 - 5.0 [facility] mmol/L [facility] CL 104 98 - 108 mmol/L [facility] CO2 TOTAL 28 23 - 31 mmol/L [facility] AGAP 7 2 - 16 [facility] BUN 15 7 - 23 mg/dL [facility] GLUCOSE 97 70 - 110 mg/dL [facility] CREATININE 0.77 0.50 - 1.04 [facility] mg/dL [facility] TOTAL BILI 0.7 0.1 - 1.1 mg/dL [facility] CALCIUM 10.0 8.6 - 10.6 [facility] mg/dL [facility] T PROTEIN 9.1 (H) 6.3 - 8.2 g/dL [facility] ALBUMIN 4.1 3.5 - 5.0 g/dL [facility] ALK PHOS 155 (H) 34 - 122 U/L [facility] ALTv 28 5 - 35 U/L [facility] AST(SGOT) 50 (H) 13 - 40 U/L [facility] eGFR Calculation 75.2 mL/min/1.73m2 [facility] ([facility] LABORATORY Portuguese) eGFR Calculation 91.2 mL/min/1.73m2 [facility] () [facility] Specimen Blood - ARM, LEFT Narrative Performed At Association of Glomerular Filtration Rate (GFR) [facility] and Staging of Kidney Disease* + + +- + | GFR (mL/min/1.73 m2) | With Kidney Damage | Without Kidney Damage + + +- + | >90 | Stage one | Normal + + +- + | 60-89 | Stage two | Decreased GFR + + +- + | 30-59 | Stage three | Stage three + + +- + | 15-29 | Stage four | Stage four + + +- + | <15 (or dialysis) | Stage five | Stage five + + +- + *Each stage assumes the associated GFR level has been in effect for at least three months. Stages 1 to 5, with or without kidney disease, indicate chronic kidney disease. Notes: Determination of stages one and two (with eGFR >59mL/min/1.73 m2) requires estimation of kidney damage for at least three months as defined by structural or functional abnormalities of the kidney, manifested by either: Pathological abnormalities or Markers of kidney damage (including abnormalities in the composition of the blood or urine or abnormalities in imaging tests). Performing Organization Address City/State/Zipcode Phone Number [facility] CLIA: [id number], [address] [place] [address] [facility] [address] documented in this encounter Visit Diagnoses Diagnosis Essential hypertension - Primary Unspecified essential hypertension Arthralgia of multiple joints Pain in joint, multiple sites Swelling of multiple joints Effusion of joint, multiple sites Overlap syndrome Other specified diffuse disease of connective tissue Anxiety Anxiety state, unspecified Hypovitaminosis D: 19(03/2018) Unspecified vitamin D deficiency Gastroesophageal reflux disease without esophagitis Esophageal reflux Chronic insomnia Insomnia, unspecified Abnormal finding of blood chemistry, unspecified Back muscle spasm Other symptoms referable to back Chronic obstructive pulmonary disease, unspecified COPD type Nasal obstruction Other diseases of nasal cavity and sinuses Sarcoidosis Nasal hypertrophy Acquired deformity of nose Atypical rash Rash and other nonspecific skin eruption documented in this encounter
--- OUTSIDE RECORDS SUMMARY | 2019-05-10 13:52 | XMS REPORT | Summary of Care ---
:1955 Author Organization [facility] Address [address] [place] [id number] Care Team Providers Name Role Phone Neena Rojas MD Primary Care Provider Reason for Visit Reason Comments New Evaluation (DIANNA) Status Reason Specialty Diagnoses / Procedures Referred By Contact Referred To Contact Closed Dermatology Diagnoses Atypical rash Neena Rojas Procedures CONSULT/REFERRAL DERMATOLOGY MD Nir [address] [place] [address] [facility] [place] [address] Encounter Details Date Type Department Care Team Description 04/24/2019 Office Visit [facility] Aubree Garcia MD [address] [place] [address] Rash and other nonspecific skin eruption (Primary Dx); Dermatology, Aimee Martinez MD [address] [place] [address] Abnormal liver function tests; [facility] Elevated alkaline phosphatase level; [address] [place] [address] Elevated AST (SGOT); [facility] Leukopenia, unspecified type; Entrance [address], [address] Elevated [place] [address] Allergies Active Allergy Reactions Severity Noted Date Comments Acetaminophen Itching, Swelling High 03/06/2018 documented as of this encounter (statuses as of 05/04/2019) Medications Medication Sig Dispensed Refills Start Date [...] as of this encounter (statuses as of 05/04/2019) Active Problems Problem Noted Date Prediabetes 04/23/2019 [...] risk for bone density loss 04/17/2018 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 (mentioned in [facility] hospitalization records 02/2018) documented as of this encounter (statuses as of 05/04/2019) Immunizations Name Administration Dates Next Due Influenza [...] Signs Not on filedocumented in this encounter Progress Notes Aimee Latif MD - 04/24/2019 10:10 AM CST Dermatology Clinic Note CC: rash HPI Lakshmi Garcia is a 64 year old female who presents as a new patient for evaluation of a rash on her face, arms, and trunk, ongoing for 20 years. Asymptomatic. No treatments tried. She states she had the rash on her face biopsied 20 years ago by a software development advisor. She does not recall the diagnosis - she thinks maybe sarcoidosis. She states that she received no further treatment or workup after the biopsy. Social history is significant for hunting, skinning , and eating armadillos [place] a [place] in [place]. She states the last time she engaged in these activities was when she was 11 years old. Medical history is significant for RA and overlap syndrome, for which she follows up with rheumatology.No other skin concerns today. Histories Past Medical History: Diagnosis Date Anemia Anxiety Bipolar 1 disorder Cholelithiasis without cholecystitis 05/17/2018 Chronic sinusitis 05/17/2018 Depression Detrusor instability of bladder 09/13/2018 Dyslipidemia (high LDL; low HDL) 04/23/2019 Fibroid uterus 05/17/2018 H. pylori infection H/O: CVA (cerebrovascular accident) 05/17/2018 Hearing loss HTN (hypertension) LAD (lymphadenopathy), hilar 05/17/2018 Neurofibromatosis 03/20/2018 ? (mentioned in [facility] hospitalization records 02/2018) Prediabetes 04/23/2019 PTSD (post-traumatic stress disorder) Pulmonary embolism 02/2018 RA (rheumatoid arthritis) Sarcoidosis 06/14/2018 Urge incontinence 09/13/2018 Urine induced contact dermatitis 09/13/2018 SH Lives in [place], [place] Allergies Allergies Allergen Reactions Tylenol [Acetaminophen] Itching and Swelling Medications Current Outpatient Medications on File Prior to Visit Medication Sig Dispense Refill albuterol 90 mcg/actuation inhaler Inhale 2 Puffs every 6 (six) hours as needed for Wheezing or Shortness of Breath. 8.5 g 2 amLODIPine 5 mg tablet Take 1 tablet by mouth daily. 30 tablet 5 busPIRone 15 mg tablet Take 1 tablet by mouth 2 (two) times daily. 60 tablet 5 Diclofenac Sodium 1 % gel Apply 1gram to affected area twice daily 100 g 5 ergocalciferol, vitamin d2, 1,250 mcg (50,000 unit) capsule Take 1 capsule by mouth weekly. 4 capsule 5 famotidine 20 mg tablet Take 1 tablet by mouth 2 (two) times daily. 60 tablet 5 FLUoxetine (PROZAC) 20 mg capsule Take 1 capsule by mouth daily. 30 capsule 5 methocarbamol 750 mg tablet Take 1 tablet by mouth 4 (four) times daily as needed (muscle pain or spasm). 60 tablet 5 predniSONE 10 mg tablet 5 tabs po qdaily x 2 days, 4 qdaily x 3 days, 3 qdaily x 3 days, 2 qdaily x 3 days, x 1 qdaily x 3 days, then start 5mg daily script 40 tablet 0 predniSONE 5 mg tablet Take 1 tablet by mouth daily. 30 tablet 5 traZODone 50 mg tablet Take 1 tablet by mouth at bedtime. 30 tablet 5 No current facility-administered medications on file prior to visit. Review of Systems Constitutional: (-) pain Integumentary: (-) itching (-) color change (-) growth (+) rash Hematologic/Lymphatic: (-) bleeding Physical Exam There were no vitals taken for this visit. Positive (+), Negative (-) General : No acute distress Psychiatric: Normal affect Pulmonary: Breathing unlabored (-)=Negative,(+)=Positive Actinic Keratosis (A): erythematous scaling papules Appiah Hemaniogioma (CH): smooth red and purple papules Dermatitis Erythema (DE): mild to moderate erythema and scaling Dermatitis Lichenified (DL): lichenification and thickening Dermatitis Weeping (DW): weeping and excoriation Inflamed Seborrheic Keratosis (ISK): inflamed warty brown papules and plaques Millium (ML): Small white cystic papule Molluscum Contagiosum (MC): umbilicated papule Nevus Macular (NM): well circumscribed evenly pigmented macule Nevus Papular (STATUS CONTROLLER): well circumscribed evenly pigmented papule Psoriasis Circumscribed (PC): well circumscribed erythema and scaling Psoriasis Diffuse (PD): diffuse patches of erythema and scaling Seborrheic Keratosis (SK): verrucous brown papules and plaques Scar (SR): cicatricial change Verruca Vulgarus (W): warty hyperkeratotic papule 04/15/2019 13:52 WBC x10^3 3.24 (L) RBC x10^6 5.51 (H) HGB 14.7 HCT 45.9 (H) MCV 83.3 MCH 26.7 MCHC 32.0 RDW-SD 47.8 RDW-CV 15.9 (H) PLT x10^3 267 MPV 10.5 NRBC /100 WBC 0.0 NRBC x10^3 <0.01 GRAN MAT (NEUT) % 56.2 IMM GRAN % 0.00 LYMPH% 24.4 MONO % 14.5 EOS % 4.3 BASO % 0.6 GRAN MAT x10^3(ANC) 1.82 (L) IMM GRAN x10^3 <0.03 LYMPH x10^3 0.79 (L) MONO x10^3 0.47 EOS x10^3 0.14 BASO x10^3 <0.03 SED RATE 21 (H) NA 139 K 3.8 CL 104 CO2 TOTAL 28 AGAP 7 BUN 15 GLUCOSE 97 CREATININE 0.77 eGFR CALCULATION (non ) 75.2 eGFR CALCULATION () 91.2 URIC ACID 4.8 TOTAL BILI 0.7 CHOL 223 (H) TRIG 201 (H) HDL CHOL 42 (L) HDLC RATIO 5.3 (H) LDL CHOL 141 VLDL 40 CALCIUM 10.0 T PROTEIN 9.1 (H) ALBUMIN 4.1 HGB A1C 6.2 (H) ALK PHOS 155 (H) ALTv 28 AST(SGOT) 50 (H) CK 70 CRP 0.4 RF 20 (H) TSH 2.35 VIT D 25OH 16 (L) C3 COMP 125 C4 COMP 47 FERNANDA Negative ANTI-RIBOS Negative ANTI-SMRNP Negative ANTI-SSA Negative ANTI-SSB Negative ANTI-DSDNA <1.0 CCP 8.9 aPS IgM 2.3 aPS IgA 2.7 aPI IgG 4.1 aPI IgM 4.1 aPI IgA 3.4 aPG IgG 4.4 aPG IgM 2.6 aPG IgA 5.5 Assessment/Plan 1. Rash - face, trunk, arms Ddx: leprosy vs sarcoidosis vs lymphoma vs other - Diagnosis, prognosis, and treatment options discussed - Lab ordered today: YOSELIN PUNCH BIOPSY for H&E & triple culture - right cheek - Discussed differential diagnosis, prognosis and treatment options with patient. Risks of procedurediscussed including bleeding, infection, and scar. Verbal consent obtained - Area prepped with alcohol. Local anesthesia provided with 1% lidocaine and epinephrine. 4 mm punchbiopsy obtained. Specimen sent to pathology, pt will be contacted with results. 4-0 Prolene suture x2 was placed to close the defect. Site covered with petrolatum and a bandage. Wound care instructions provided. RTC for S/R in 5-7 days PUNCH BIOPSY for H&E - left forearm - Discussed differential diagnosis, prognosis and treatment options with patient. Risks of procedurediscussed including bleeding, infection, and scar. Verbal consent obtained - Area prepped with alcohol. Local anesthesia provided with 1% lidocaine and epinephrine. 4 mm punchbiopsy obtained. Specimen sent to pathology, pt will be contacted with results. 4-0 Prolene suture x2 was placed to close the defect. Site covered with petrolatum and a bandage. Wound care instructions provided. RTC for S/R in 10-14 days - Further management pending results - Follow up at [facility] 1-2 weeks Patient seen with Dr. Garcia who agrees with the plan of care. Aimee Latif MD [facility] Dermatology, PGY-4 documented in this encounter Plan of Treatment Date Type Specialty Care Team Description 05/08/2019 Office Visit Dermatology Aimee Latif MD [address] [place] [phone] 07/17/2019 Office Visit Rheumatology Rock Koenig, DO [facility] [place] [address] [phone] Name Type Priority Associated Diagnoses Date/Time FUNGUS (ROUTINE) LAB Routine Rash and other nonspecific 04/24/2019 4:44 PM FSR CULTURE skin eruption AFB CULTURE LAB Routine Rash and other nonspecific 04/24/2019 4:45 PM FSR skin eruption Name Type Priority Associated Diagnoses Order Schedule ANGIOTENSIN CONVERTING LAB Routine Rash and other Expected: 04/24/2019, ENZYME nonspecific skin eruption Expires: 04/24/2020 Health Maintenance Due Date Last Done Comments [...] Procedure Name Priority Date/Time Associated Diagnosis Comments AFB CULTURE Routine 04/24/2019 4:45 PM Rash and other FSR nonspecific skin eruption FUNGUS (ROUTINE) Routine 04/24/2019 4:44 PM Rash and other CULTURE FSR nonspecific skin eruption TISSUE Routine 04/24/2019 4:43 PM Rash and other Results for this CULTURE(AEROBIC/FERNANDA FSR nonspecific skin procedure are in EROBIC) eruption the results section. documented in this encounter Results TISSUE CULTURE(AEROBIC/ANAEROBIC) (04/24/2019 4:43 PM FSR) TISSUE CULTURE No aerobic/anaerobic [facility] organisms isolated SERVICES Gram stain Occasional (Rare) Gram [facility] positive cocci SERVICES Gram stain No Polymorphonuclear [facility] leukocytes SERVICES Specimen Tissue - FACE Performing Organization Address City/State/Zipcode Phone Number [facility] CLIA: [id number], [address] [place], [place] [address] [facility] documented in this encounter Visit Diagnoses Diagnosis Rash and other nonspecific skin eruption - Primary Abnormal liver function tests Other abnormal blood [...] ID Effective Dates Phone Address Type Group [facility] STAR xxxxxxxxx 2019-Present Medicaid COMM PLAN - PLUS MANAGED MEDICAID documented as of this encounter
--- OUTSIDE RECORDS SUMMARY | 2019-05-10 13:52 | XMS REPORT | Summary of Care ---
:1955 Author Organization [facility] Address [address] [place] [address] Care Team Providers Name Role Phone Neena Rojas MD Primary Care Provider Reason for Referral (DIANNA) Status Reason Specialty Diagnoses / Procedures Referred By Contact Referred To Contact Closed Dermatology Diagnoses Atypical rash Neena Rojas Procedures CONSULT/REFERRAL DERMATOLOGY MD Nir [address] [place] [address] [place] [address] (DIANNA) Status Reason Specialty Diagnoses / Referred By Referred To Procedures Contact Contact New Request Rheumatology Diagnoses Arthralgia of multiple joints Swelling of multiple joints Overlap syndrome Bob, Procedures CONSULT/REFERRAL RHEUMATOLOGY Neena Loyola MD [address] [place] [address] [place] [address] (STAT) Status Reason Specialty Diagnoses / Referred By Referred To Procedures Contact Contact Closed Otolaryngology Diagnoses Nasal obstruction Sarcoidosis Nasal hypertrophy Neena Rojas Procedures CONSULT/REFERRAL ENT MD Nir [address] [place] [address] [facility] [place] [address] Reason for Visit Reason Comments SWELLING Sinus Problem facial pressure INSOMNIA LAB WORK Encounter Details Date Type Department Care Team Description 04/15/2019 Office Visit [facility] Family Neena Rojas Essential hypertension (Primary Dx); Medicine - Asia Loyola MD Arthralgia of multiple joints; [facility] [place] [address] [address] [facility] Swelling of multiple joints; Drive [place], [place] Overlap syndrome; [place] [address] Anxiety; [address] Hypovitaminosis D: 19(03/2018); [phone] Gastroesophageal reflux disease without esophagitis; (Fax) Chronic [...] At risk for bone density loss 04/17/2018 intermediate card tender (current) use of non-steroidal anti-inflammatories (nsaid) 2018 [...] 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 (mentioned in [facility] hospitalization records 02/2018) documented as [...] Comments Blood Pressure 137/82 04/15/2019 1:23 PM SUPERVISORY CIVIL ENGINEER Pulse 87 04/15/2019 1:23 PM SUPERVISORY CIVIL ENGINEER Temperature 37.1 C (98.7 F) 04/15/2019 1:23 PM SUPERVISORY CIVIL ENGINEER Respiratory Rate - - Oxygen Saturation 93% 04/15/2019 1:23 PM SUPERVISORY CIVIL ENGINEER Inhaled Oxygen Concentration - - Weight 60.8 kg (134 lb) 04/15/2019 1:23 PM SUPERVISORY CIVIL ENGINEER Height 157.5 cm (5' 2") 04/15/2019 1:23 PM SUPERVISORY CIVIL ENGINEER Body Mass Index 24.51 04/15/2019 1:23 PM SUPERVISORY CIVIL ENGINEER documented in this encounter Patient Instructions Patient [...] meditation. Consider online or in-person support groups. [employer] last reviewed this educational content on 03/19/2016 [employer]. [address] [place] [address]. All rights reserved. This information is not [...] of pain can bereduced in this way. [employer] last reviewed this educational content on 07/17/2016 [employer]. [address] [place] [address]. All rights reserved. This information is not [...] an ocean or mountain, as you breathe. [employer] last reviewed this educational content on 12/17/201819996276-8808 [employer]. [address] [place] [address]. All rights reserved. This information is not intended as a substitute for professional medical care. Always follow your healthcare professional's instructions. RVISORY CIVIL ENGINEER documented in this encounter Progress Notes Mar [place] - 04/15/2019 1:15 PM CST Venipuncture collection performed by clean technique on the left anticubitus. Total of 1 attempts were made. Slight pressure and a bandage/dressing were applied to the site(s). The patient experienced no complications. The following specimens were processed according to instructions and sent to [facility] laboratories per lab order on 04/15/19: LT [...] weeks ago. Of note she saw a Shrink Pit Operator (Dr. Tierney) in [place] 2018 to establish care for her RA, overlap syndrome, and possible sarcoidosis. He did X-rays of her hands and chest and told her she has osteoarthritis, no signs of sarcoidosis, and there was no need to f/u with him per patient report ( see scanned X-ray reports from [facility]). She was previously followed by [facility] Rheumatology but she was lost to f/u with that department when her provider Dr. Jessica left [facility]. Sinus Problem Pain details: Location: Maxillary Quality: [...] hilar 05/17/2018 Neurofibromatosis 03/20/2018 ? (mentioned in [facility] hospitalization records 02/2018) PTSD (post-traumatic stress disorder) [...] file Gets together: Not on file Attends restorationist service: Not on file Active member of [...] History Narrative 03/05/18 - was homeless in [facility] and now moved here to [place] to live with sister Single, living alone, [...] will try to get her re-established with [facility] Rheumatology DIANNA. Ice alt with/OR heat to [...] STRANDED DNA - ANTI-SSB(LA) - ANTI-SSA(RO) - ANTI-SM/ELL TEACHER - ANTI-RIBOSOMAL P - ANTIPHOSPHOLIPID AB PANEL [...] CBC WITH DIFF - COMP. METABOLIC PANEL (31491) - THYROID STIMULATING HORMONE - LIPID PANEL (95171)(TOTAL CHOLESTEROL, TRIGLYCERIDES, HDL) Anxiety, Chronic insomnia Restart [...] by mouth weekly. - COMP. METABOLIC PANEL (28331) - VITAMIN D, 25-OH Gastroesophageal reflux disease [...] at a future visit. If applicable, the [place] PMPdatabase was accessed to review any controlled substance prescription claims data. If the patient is taking prescribed medications, the [employer] prescription claims data in [employer] was reviewed to assess patient compliance with [...] 05/08/2019 Office Visit Dermatology Aimee Latif MD [address] [place] [phone] 07/17/2019 Office Visit Rheumatology Rock Koenig, DO [address] [place] [address] [phone] Name Type Priority Associated Diagnoses Date/Time ANTI-NUCLEAR LAB Routine Arthralgia of multiple 04/15/2019 1:52 PM ANTIBODY-PATHOLOGIST joints SUPERVISORY CIVIL ENGINEER INTERPRETATION Swelling of multiple joints Overlap syndrome [...] Arthralgia of Results for this PANEL PM SUPERVISORY CIVIL ENGINEER multiple joints procedure are in Swelling of the results multiple joints section. Overlap syndrome Essential hypertension Anxiety Hypovitaminosis D: 19(03/2018) Gastroesophageal reflux disease without esophagitis Chronic insomnia CBC WITH DIFFERENTIAL Routine 04/15/2019 1:52 Arthralgia of Results for this PM SUPERVISORY CIVIL ENGINEER multiple joints procedure are in Swelling of the results multiple joints section. Overlap syndrome Essential hypertension Anxiety Hypovitaminosis D: 19(03/2018) Gastroesophageal reflux disease without esophagitis Chronic insomnia ANTI-DOUBLE STRANDED DNA Routine 04/15/2019 1:52 Arthralgia of Results for this PM SUPERVISORY CIVIL ENGINEER multiple joints procedure are in Swelling of the results multiple joints section. Overlap syndrome Essential hypertension Anxiety Hypovitaminosis D: 19(03/2018) Gastroesophageal reflux disease without esophagitis Chronic insomnia ANTI-SSB(LA) Routine 04/15/2019 1:52 Arthralgia of Results for this PM SUPERVISORY CIVIL ENGINEER multiple joints procedure are in Swelling of the results multiple joints section. Overlap syndrome Essential hypertension Anxiety Hypovitaminosis D: 19(03/2018) Gastroesophageal reflux disease without esophagitis Chronic insomnia ANTI-SSA(RO) Routine 04/15/2019 1:52 Arthralgia of Results for this PM SUPERVISORY CIVIL ENGINEER multiple joints procedure are in Swelling of the results multiple joints section. Overlap syndrome Essential hypertension Anxiety Hypovitaminosis D: 19(03/2018) Gastroesophageal reflux disease without esophagitis Chronic insomnia ANTI-SM/ELL TEACHER Routine 04/15/2019 1:52 Arthralgia of Results for this PM SUPERVISORY CIVIL ENGINEER multiple joints procedure are in Swelling of the results multiple joints section. Overlap syndrome Essential hypertension Anxiety Hypovitaminosis D: 19(03/2018) Gastroesophageal reflux disease without esophagitis Chronic insomnia ANTI-RIBOSOMAL P Routine 04/15/2019 1:52 Arthralgia of Results for this PM SUPERVISORY CIVIL ENGINEER multiple joints procedure are in Swelling of the results multiple joints section. Overlap syndrome Essential hypertension Anxiety Hypovitaminosis D: 19(03/2018) Gastroesophageal reflux disease without esophagitis Chronic insomnia VITAMIN D, 25-OH Routine 04/15/2019 1:52 Arthralgia of Results for this PM SUPERVISORY CIVIL ENGINEER multiple joints procedure are in Swelling of the results multiple joints section. Overlap syndrome Essential hypertension Anxiety Hypovitaminosis D: 19(03/2018) Gastroesophageal reflux disease without esophagitis Chronic insomnia CYCLIC CITRULLINATED Routine 04/15/2019 1:52 Arthralgia of Results for this PEPTIDE PM SUPERVISORY CIVIL ENGINEER multiple joints procedure are in Swelling of the results multiple joints section. Overlap syndrome Essential hypertension Anxiety Hypovitaminosis D: 19(03/2018) Gastroesophageal reflux disease without esophagitis Chronic insomnia ANTI-NUCLEAR ANTIBODY Routine 04/15/2019 1:52 Arthralgia of Results for this SCREEN PM SUPERVISORY CIVIL ENGINEER multiple joints procedure are in Swelling of the results multiple joints section. Overlap syndrome Essential hypertension Anxiety Hypovitaminosis D: 19(03/2018) Gastroesophageal reflux disease without esophagitis Chronic insomnia GLYCOSYLATED HEMOGLOBIN Routine 04/15/2019 1:52 Abnormal finding of Results for this (A1C) PM SUPERVISORY CIVIL ENGINEER blood chemistry, procedure are in unspecified the results Arthralgia of section. multiple joints Swelling of multiple joints Overlap syndrome Essential hypertension Anxiety Hypovitaminosis D: 19(03/2018) Gastroesophageal reflux disease without esophagitis Chronic insomnia CBC WITH DIFFERENTIAL Routine 04/15/2019 1:52 Arthralgia of Results for this PM SUPERVISORY CIVIL ENGINEER multiple joints procedure are in Swelling of the results multiple joints section. Overlap syndrome Essential hypertension Anxiety Hypovitaminosis D: 19(03/2018) Gastroesophageal reflux disease without esophagitis Chronic insomnia SEDIMENTATION RATE Routine 04/15/2019 1:52 Arthralgia of Results for this PM SUPERVISORY CIVIL ENGINEER multiple joints procedure are in Swelling of the results multiple joints section. Overlap syndrome Essential hypertension Anxiety Hypovitaminosis D: 19(03/2018) Gastroesophageal reflux disease without esophagitis Chronic insomnia LIPID PANEL Routine 04/15/2019 1:52 Arthralgia of Results for this (07678)(TOTAL PM SUPERVISORY CIVIL ENGINEER multiple joints procedure are in CHOLESTEROL, Swelling of the results TRIGLYCERIDES, HDL) multiple joints section. Overlap syndrome Essential hypertension Anxiety Hypovitaminosis D: 19(03/2018) Gastroesophageal reflux disease without esophagitis Chronic insomnia COMP. METABOLIC PANEL Routine 04/15/2019 1:52 Arthralgia of Results for this (16955) PM SUPERVISORY CIVIL ENGINEER multiple joints procedure are in Swelling of the results multiple joints section. Overlap syndrome Essential hypertension Anxiety Hypovitaminosis D: 19(03/2018) Gastroesophageal reflux disease without esophagitis Chronic insomnia THYROID STIMULATING Routine 04/15/2019 1:52 Arthralgia of Results for this HORMONE PM SUPERVISORY CIVIL ENGINEER multiple joints procedure are in Swelling of the results multiple joints section. Overlap syndrome Essential hypertension Anxiety Hypovitaminosis D: 19(03/2018) Gastroesophageal reflux disease without esophagitis Chronic insomnia C4 COMPLEMENT Routine 04/15/2019 1:52 Arthralgia of Results for this PM SUPERVISORY CIVIL ENGINEER multiple joints procedure are in Swelling of the results multiple joints section. Overlap syndrome Essential hypertension Anxiety Hypovitaminosis D: 19(03/2018) Gastroesophageal reflux disease without esophagitis Chronic insomnia C3 COMPLEMENT Routine 04/15/2019 1:52 Arthralgia of Results for this PM SUPERVISORY CIVIL ENGINEER multiple joints procedure are in Swelling of the results multiple joints section. Overlap syndrome Essential hypertension Anxiety Hypovitaminosis D: 19(03/2018) Gastroesophageal reflux disease without esophagitis Chronic insomnia C-REACTIVE PROTEIN Routine 04/15/2019 1:52 Arthralgia of Results for this PM SUPERVISORY CIVIL ENGINEER multiple joints procedure are in Swelling of the results multiple joints section. Overlap syndrome Essential hypertension Anxiety Hypovitaminosis D: 19(03/2018) Gastroesophageal reflux disease without esophagitis Chronic insomnia RHEUMATOID FACTOR Routine 04/15/2019 1:52 Arthralgia of Results for this PM SUPERVISORY CIVIL ENGINEER multiple joints procedure are in Swelling of the results multiple joints section. Overlap syndrome Essential hypertension Anxiety Hypovitaminosis D: 19(03/2018) Gastroesophageal reflux disease without esophagitis Chronic insomnia URIC ACID Routine 04/15/2019 1:52 Arthralgia of Results for this PM SUPERVISORY CIVIL ENGINEER multiple joints procedure are in Swelling of the results multiple joints section. Overlap syndrome Essential hypertension Anxiety Hypovitaminosis D: 19(03/2018) Gastroesophageal reflux disease without esophagitis Chronic insomnia CREATINE KINASE Routine 04/15/2019 1:52 Arthralgia of Results for this PM SUPERVISORY CIVIL ENGINEER multiple joints procedure are in Swelling of the results multiple joints section. Overlap syndrome Essential hypertension Anxiety Hypovitaminosis D: 19(03/2018) Gastroesophageal reflux disease without esophagitis Chronic insomnia documented in this encounter Results CBC WITH DIFFERENTIAL (04/15/2019 1:52 PM SUPERVISORY CIVIL ENGINEER) WBC 3.24 (L) 4.30 - 11.10 [facility] 10*3/L [facility] RBC 5.51 (H) 3.93 - 5.25 [facility] 10*6/L [facility] HGB 14.7 11.6 - 15.0 [facility] g/dL [facility] HCT 45.9 (H) 35.7 - 45.2 % [facility] MCV 83.3 80.6 - 95.5 fL [facility] MCH 26.7 25.9 - 32.8 pg [facility] MCHC 32.0 31.6 - 35.1 [facility] g/dL [facility] RDW-SD 47.8 39.0 - 49.9 fL [facility] RDW-CV 15.9 (H) 12.0 - 15.5 % [facility] PLT 267 166 - 358 [facility] 10*3/L [facility] MPV 10.5 9.5 - 12.9 fL [facility] NRBC/100 WBC 0.0 0.0 - 10.0 /100 [facility] WBCs [facility] NRBC x10^3 <0.01 10*3/L [facility] GRAN MAT (NEUT) % 56.2 % [facility] IMM GRAN % 0.00 % [facility] LYMPH % 24.4 % [facility] MONO % 14.5 % [facility] EOS % 4.3 % [facility] BASO % 0.6 % [facility] GRAN MAT x10^3(ANC) 1.82 (L) 1.88 - 7.[address]uL [facility] IMM GRAN x10^3 <0.03 0.00 - 0.06 [facility] 10*3/uL [facility] LYMPH x10^3 0.79 (L) 1.32 - 3.29 [facility] 103/uL [facility] MONO x10^3 0.47 0.33 - 0.[address]/uL [facility] EOS x10^3 0.14 0.03 - 0.[address]/[facility] LABORATORY BASO x10^3 <0.03 0.01 - 0.[address] LABORATORY Specimen Blood - ARM, LEFT Performing Organization Address [facility] Phone Number [facility] CLIA: [id number], [address] [place] [address] URIC ACID (04/15/2019 1:52 PM SUPERVISORY CIVIL ENGINEER) URIC ACID 4.8 2.9 - 6.0 mg/dL [facility] Specimen Blood - ARM, LEFT Performing Organization Address [facility] Phone Number [facility] CLIA: [id number], [address] [place] [address] SEDIMENTATION RATE (04/15/2019 1:52 PM SUPERVISORY CIVIL ENGINEER) ESR 21 (H) 0 - 20 mm/HR [facility] Specimen Blood - ARM, LEFT Performing Organization Address [facility]/Zipcode Phone Number [facility] CLIA: [id number], [address] [place] [address] RHEUMATOID FACTOR (04/15/2019 1:52 PM SUPERVISORY CIVIL ENGINEER) RF 20 (H) <20 IU/mL [facility] Specimen Blood - ARM, LEFT Performing Organization Address City/[facility]/Zipcode Phone Number [facility] CLIA: [id number], [address] [place] [phone] [facility] CYCLIC CITRULLINATED PEPTIDE (04/15/2019 1:52 PM SUPERVISORY CIVIL ENGINEER) CCP IgG/IgA 8.9 0.0 - 20.0 U [...] cut-off of the assay. Performing Organization Address City/[facility] Phone Number [facility]TIP[facility]PHOL[facility] [address] [place] [phone] [employer] LABORAT. [address] [employer] [address] CREATINE KINASE (04/15/2019 1:52 PM SUPERVISORY CIVIL ENGINEER) CK 70 33 - 194 U/L [facility] Specimen Blood - ARM, LEFT Performing Organization Address [facility] Phone Number [facility] CLIA: [id number], [address] [place] [address] C-REACTIVE PROTEIN (04/15/2019 1:52 PM SUPERVISORY CIVIL ENGINEER) CRP 0.4 <0.8 mg/dL [facility] SERVICES Specimen Blood - ARM, LEFT Performing Organization Address [facility] Phone Number [facility] CLIA: [id number], [address] [place] [address] [phone] [facility] C4 COMPLEMENT (04/15/2019 1:52 PM SUPERVISORY CIVIL ENGINEER) C4 47 20 - 59 mg/dL [facility] Specimen Blood - ARM, LEFT Performing Organization Address [facility] Phone Number [facility] CLIA: [id number], [address] [place] [phone] [facility] C3 COMPLEMENT (04/15/2019 1:52 PM SUPERVISORY CIVIL ENGINEER) C3 125 86 - 184 mg/dL [facility] Specimen Blood - ARM, LEFT Performing Organization Address [facility] Phone Number [facility] CLIA: [id number], [address] [place], [place] [address] [facility] ANTIPHOSPHOLIPID AB PANEL (04/15/2019 1:52 PM SUPERVISORY CIVIL ENGINEER) aPS IgG 3.4 0.0 - 15.0 GPL [...] Erytematosus (SLE). Performing Organization Address City/State/[facility] Phone Number ANTIPHOSPHOLIPID [address] [place] [address] [facility] LABORAT. [address] [employer] [address] ANTI-RIBOSOMAL P (04/15/2019 1:52 PM SUPERVISORY CIVIL ENGINEER) Anti-RiboP Negative Negative [facility] Specimen Blood - ARM, LEFT Narrative Performed At Positive - Antibody detected. [facility] Negative - No antibody detected. Performing Organization Address City/State/Zipcode Phone Number [facility] CLIA: [id number], [address] [place] [address] [phone] [facility] ANTI-SM/ELL TEACHER (04/15/2019 1:52 PM SUPERVISORY CIVIL ENGINEER) ANTI-SMRNP Negative Negative [facility] Specimen Blood - ARM, LEFT Narrative Performed At Positive - Antibody detected. [facility] Negative - No antibody detected. Performing Organization Address City/[facility] Phone Number [facility] CLIA: [id number], [address] [place] [phone] [facility] ANTI-SSA(RO) (04/15/2019 1:52 PM SUPERVISORY CIVIL ENGINEER) ANTI-SSA(RO) Negative Negative [facility] Specimen Blood - ARM, LEFT Narrative Performed At Positive - Antibody detected. [facility] Negative - No antibody detected. Performing Organization Address [facility] Phone Number [facility] CLIA: [id number], [address] [place] [address] [phone] [facility] ANTI-SSB(LA) (04/15/2019 1:52 PM SUPERVISORY CIVIL ENGINEER) Anti-SSB(LA) Negative Negative [facility] Specimen Blood - ARM, LEFT Narrative Performed At Positive - Antibody detected. [facility] Negative - No antibody detected. Performing Organization Address [facility] Phone Number [facility] CLIA: [id number], [address] [place] [phone] [facility] ANTI-DOUBLE STRANDED DNA (04/15/2019 1:52 PM SUPERVISORY CIVIL ENGINEER) ANTI-DSDNA <1.0 0.0 - 4.0 IU/mL [facility] Specimen Blood - ARM, LEFT Narrative Performed At Negative < or=4 IU/mL [facility] Positive > or=10 IU/mL Indeterminate 5-9 IU/mL Performing Organization Address [facility] Phone Number [facility] CLIA: [id number], [address] [place] [address] [phone] [facility] ANTI-NUCLEAR ANTIBODY SCREEN (04/15/2019 1:52 PM SUPERVISORY CIVIL ENGINEER) FERNANDA Negative Negative [facility] Specimen Blood - ARM, LEFT Narrative Performed At Negative - No Anti-Nuclear Antibodies detected by IFA. [facility] Positive - FERNANDA IFA screen [...] separately. Performing Organization Address City/State/Zipcode Phone Number [facility] CLIA: [id number], [address] [place], [place] [address] [facility] VITAMIN D, 25-OH (04/15/2019 1:52 PM SUPERVISORY CIVIL ENGINEER) Pathologist [facility] VIT D 25OH 16 (L) 25 - 80 ng/mL [facility] Specimen Blood - ARM, LEFT Narrative Performed At Deficiency: <20 ng/mL [facility] Insufficiency: 20-24 ng/mL Optimal: 25-80 ng/mL Performing Organization Address City/[facility] Phone Number [facility] CLIA: [id number], [address] [place], [place] [address] [phone] [facility] LIPID PANEL (78354)(TOTAL CHOLESTEROL, TRIGLYCERIDES, HDL) (04/15/2019 1:52 PM SUPERVISORY CIVIL ENGINEER) CHOL 223 (H) 120 - 200 mg/dL [facility] [facility] HDL 42 (L) >50 mg/dL [facility] HDLC RATIO 5.3 (H) <=4.5 [facility] TRIG 201 (H) 30 - 170 mg/dL [facility] LDL CHOL 141 <=160 mg/dL [facility] VLDL 40 5 - 60 mg/dL [facility] Specimen Blood - ARM, LEFT Performing Organization Address City/[facility] Phone Number [facility] CLIA: [id number], [address] [place] [address] GLYCOSYLATED HEMOGLOBIN (A1C) (04/15/2019 1:52 PM SUPERVISORY CIVIL ENGINEER) [facility] Signature HGB A1C 6.2 (H) 4.0 - 6.0 % NGSP [facility] Specimen Blood - ARM, LEFT Narrative Performed At %A1C (NGSP) Interpretation (ADA) [facility] 4.8-5.6 Normal or (Non-Diabetic Range) 5.7-6.4 Increased Risk (Pre-Diabetic) >6.5 Diabetes Indicated Performing Organization Address City/[facility] Phone Number [facility] CLIA: [id number], [address] [place] [address] THYROID STIMULATING HORMONE (04/15/2019 1:52 PM SUPERVISORY CIVIL ENGINEER) TSH 2.35 0.45 - 4.70 mIU/L [facility] Specimen Blood - ARM, LEFT Performing Organization Address City/[facility] Phone Number [facility] CLIA: [id number], [address] [place] [address] COMP. METABOLIC PANEL ([id number]) (04/15/2019 1:52 PM SUPERVISORY CIVIL ENGINEER) NA 139 135 - 145 [facility] mmol/L [facility] K 3.8 3.5 - 5.0 [facility] mmol/L [facility] CL 104 98 - 108 mmol/L [facility] CO2 TOTAL 28 23 - 31 mmol/L [facility] AGAP 7 2 - 16 [facility] BUN 15 7 - 23 mg/dL [facility] GLUCOSE 97 70 - 110 mg/dL [facility] CREATININE 0.77 0.50 - 1.04 [facility] mg/dL [facility] TOTAL BILI 0.7 0.1 - 1.1 mg/dL [facility] CALCIUM 10.0 8.6 - 10.6 [facility] mg/dL [facility] T PROTEIN 9.1 (H) 6.3 - 8.2 g/dL [facility] ALBUMIN 4.1 3.5 - 5.0 g/dL [facility] ALK PHOS 155 (H) 34 - 122 U/L [facility] ALTv 28 5 - 35 U/L [facility] AST(SGOT) 50 (H) 13 - 40 U/L [facility] eGFR Calculation 75.2 mL/min/1.73m2 [facility] ([facility] Senegalese) eGFR Calculation 91.2 mL/min/1.73m2 [facility] () [facility] Specimen Blood - ARM, LEFT Narrative Performed At Association of Glomerular Filtration Rate (GFR) [facility] and Staging of Kidney Disease* [...] tests). Performing Organization Address City/State/Zipcode Phone Number [facility] CLIA: [id number], [address] [place] [address] [address] documented in this encounter Visit [...]
--- OUTSIDE RECORDS SUMMARY | 2019-05-10 13:52 | XMS REPORT | Summary of Care ---
:1955 Author Organization [facility] Address [address] [place] [id number] Care Team Providers Name Role Phone Neena Rojas MD Primary Care Provider Reason for Visit Reason Comments New Evaluation (DIANNA) Status Reason Specialty Diagnoses / Procedures Referred By Contact Referred To Contact Closed Dermatology Diagnoses Atypical rash Neena Rojas Procedures CONSULT/REFERRAL DERMATOLOGY MD Nir [address] [place] [address] [facility] [place] [address] Encounter Details Date Type Department Care Team Description 04/24/2019 Office Visit [facility] Aubree Garcia MD [address] [place] [address] Rash and other nonspecific skin eruption (Primary Dx); Dermatology, Aimee Martinez MD [address] [place] [address] Abnormal liver function tests; [facility] Elevated alkaline phosphatase level; [address] [place] [address] Elevated AST (SGOT); 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 (mentioned in [facility] hospitalization records 02/2018) documented as of this encounter (statuses as of 05/06/2019) Immunizations Name Administration Dates Next Due Influenza [...] face biopsied 20 years ago by a planer hand. She does not recall the diagnosis - she thinks maybe sarcoidosis. She states that she received no further treatment or workup after the biopsy. Social history is significant for hunting, skinning , and eating [place]ill[place] a [place] in [place]. She states the last time she engaged [...] hilar 05/17/2018 Neurofibromatosis 03/20/2018 ? (mentioned in [facility] hospitalization records 02/2018) Prediabetes 04/23/2019 PTSD (post-traumatic stress disorder) Pulmonary embolism 02/2018 RA (rheumatoid arthritis) Sarcoidosis 06/14/2018 Urge incontinence 09/13/2018 Urine induced contact dermatitis 09/13/2018 SH Lives in [place], [place] Allergies Allergies Allergen Reactions Tylenol [Acetaminophen] [...] distress Psychiatric: Normal affect Pulmonary: Breathing unlabored FACE: Positive EYES: Positive NOSE: Positive EARS: Negative SCALP: Negative NECK: Negative CHEST: Negative RIGHT ARM: See image LEFT ARM: Positive JOINTS: Positive (-)=Negative,(+)=Positive Actinic Keratosis (A): erythematous scaling papules [...] well circumscribed evenly pigmented macule Nevus Papular (SENIOR SOFTWARE DEVELOPER): well circumscribed evenly pigmented papule Psoriasis Circumscribed [...] management pending results - Follow up at [facility] RTC 1-2 weeks Patient seen with Dr. Garcia who agrees with the plan of care. Aimee Latif MD [facility] Dermatology, PGY-4 After discussion with Resident Aimee Latif MD, I interviewed and examined this patient. I agree with resident's work as above. I was present for the procedures. Aubree Garcia MD 05/06/2019 Dermatology documented in this encounter Plan of Treatment Date Type Specialty Care Team Description 05/22/2019 Office Visit Dermatology Aimee Latif MD [address] [place] [phone] 07/17/2019 Office Visit Rheumatology Rock Koenig, [address] [place] [address] [phone] Name Type Priority Associated Diagnoses Date/Time FUNGUS (ROUTINE) LAB Routine Rash and other nonspecific 04/24/2019 4:44 PM SOLUTION MIXER CULTURE skin eruption AFB CULTURE LAB Routine Rash and other nonspecific 04/24/2019 4:45 PM SOLUTION MIXER skin eruption Name Type Priority Associated Diagnoses [...] Routine 04/24/2019 4:45 PM Rash and other SOLUTION MIXER nonspecific skin eruption FUNGUS (ROUTINE) Routine 04/24/2019 4:44 PM Rash and other CULTURE SOLUTION MIXER nonspecific skin eruption TISSUE Routine 04/24/2019 4:43 PM Rash and other Results for this CULTURE(AEROBIC/FERNANDA SOLUTION MIXER nonspecific skin procedure are in EROBIC) eruption the results section. documented in this encounter Results TISSUE CULTURE(AEROBIC/ANAEROBIC) (04/24/2019 4:43 PM SOLUTION MIXER) TISSUE CULTURE No aerobic/anaerobic [facility] organisms isolated SERVICES Gram stain Occasional (Rare) Gram [facility] positive cocci SERVICES Gram stain No Polymorphonuclear [facility] leukocytes SERVICES Specimen Tissue - FACE Performing Organization Address City/State/Zipcode Phone Number [facility] CLIA: [id number], [address] [place] [address] [facility] documented in this encounter Visit Diagnoses Diagnosis [...] ID Effective Dates Phone Address Type Group [facility] STAR xxxxxxxxx 2019-Present Medicaid COMM PLAN - PLUS MANAGED MEDICAID documented as of this encounter
--- OUTSIDE RECORDS SUMMARY | 2019-05-10 13:52 | XMS REPORT | Summary of Care ---
:1955 Author Organization [facility] Address [address] [place] [address] Care Team Providers Name Role Phone Neena Rojas MD Primary Care Provider Reason for Visit Reason Comments New Evaluation (DIANNA) Status Reason Specialty Diagnoses / Procedures Referred By Contact Referred To Contact Closed Dermatology Diagnoses Atypical rash Neena Rojas Procedures CONSULT/REFERRAL DERMATOLOGY MD Nir [address] [place] [address] [facility] [place] [address] Encounter Details Date Type Department Care Team Description 04/24/2019 Office Visit [facility] Aubree Garcia MD [address] [place] [address] Rash and other nonspecific skin eruption (Primary Dx); Dermatology, Aimee Martinez MD [address] [place] [address] Abnormal liver function tests; [facility] Elevated alkaline phosphatase level; [address] [place] [address] Elevated AST (SGOT); [facility] Leukopenia, unspecified type; Entrance A, [address] Ele[place] [address] Allergies Active Allergy Reactions Severity [...] risk for bone density loss 04/17/2018 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 (mentioned in [facility] hospitalization records 02/2018) documented as of [...] face biopsied 20 years ago by a family life educator. She does not recall the diagnosis - she thinks maybe sarcoidosis. She states that she received no further treatment or workup after the biopsy. Social history is significant for hunting, skinning , and eating [place]illos [place] a [place] rural [place]. She states the last time she engaged [...] hilar 05/17/2018 Neurofibromatosis 03/20/2018 ? (mentioned in [facility] hospitalization records 02/2018) Prediabetes 04/23/2019 PTSD (post-traumatic stress disorder) Pulmonary embolism 02/2018 RA (rheumatoid arthritis) Sarcoidosis 06/14/2018 Urge incontinence 09/13/2018 Urine induced contact dermatitis 09/13/2018 SH Lives in [place], [place] Allergies Allergies Allergen Reactions Tylenol [Acetaminophen] [...] well circumscribed evenly pigmented macule Nevus Papular (ENVIRONMENTAL COMPLIANCE TECHNICIAN): well circumscribed evenly pigmented papule Psoriasis Circumscribed [...] management pending results - Follow up at [facility] 1-2 weeks Patient seen with Dr. Garcia who agrees with the plan of care. 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 documented in this encounter Results TISSUE CULTURE(AEROBIC/ANAEROBIC) (04/24/2019 4:43 PM GASKET INSPECTOR) TISSUE CULTURE No aerobic/anaerobic [facility] organisms isolated SERVICES Gram stain Occasional (Rare) Gram [facility] positive cocci SERVICES Gram stain No Polymorphonuclear [facility] leukocytes SERVICES Specimen Tissue - FACE Performing Organization Address City/State/Zipcode Phone Number [facility] CLIA: [id number], [address] [place], [place] [address] [facility] documented in this encounter Visit [...] Effective Dates Phone Address Type Group [facility] STAR xxxxxxxxx 2019-Present Medicaid COMM PLAN - PLUS MANAGED MEDICAID documented as of this encounter
[2019-05-10 14:40] LABS: Absolute Lymphocytes (CBC) 0.4 K/uL (0.7-4.9); Basophils % 0.4 % (0-1.3); Hematocrit 40.5 % (36.0-45.0); Lymphocytes % 7.8 % (15.3-44.8); MPV 7.8 fL (7.6-11.3); RBC Red Blood Cell Count 4.84 M/uL (3.86-4.86)
[2019-05-10 14:52] LABS: BUN Blood Urea Nitrogen 8 mg/dL (7-18); Bicarbonate 27 mmol/L (21-32); Glucose Level 99 mg/dL (74-106); Potassium 3.2 mmol/L (3.5-5.1); Sodium Level 142 mmol/L (136-145)
[2019-05-10] MEDS ORDERED: MORPHINE 4 MG/ML SYR ONE (15:02)
[2019-05-10] MEDS ORDERED: ONDANSETRON 4 MG/2 ML VIAL ONE (15:02)
--- NOTE | 2019-05-10 15:07 | RAD REPORT ---
EXAM DESCRIPTION: CT - Head C Spine Cap W Con - 05/10/2019 2:31 pm CLINICAL HISTORY: fall, head, neck, chest and abdomen pain COMPARISON: Chest Single View dated 05/10/2019 TECHNIQUE: Axial [address] head images were obtained. Axial [address] cervical spine images were obtaine d with sagittal and coronal reconstruction images reviewed. During dynamic enhancement of 100mL non-i onic contrast, axial 5 mm images of the chest, abdomen and pelvis were obtained. All CT scans are performed using dose optimization technique as appropriate and may include automated exposure control or mA/KV adjustment according to patient size. FINDINGS: No intracranial hemorrhage, mass or edema. No midline shift or abnormal fluid collection. Mastoid air cells are clear. There is complete opacification of the frontal sinuses and ethmoid air cells are mostly opacified. Partial opacification of each maxillary sinus. Chronic sinusitis changes involve the wall of the right maxillary sinus. No skull fracture. Right parotid gland is absent or atrophic. Right submandibular gland is normal in appearance. There a re no surgical clips in the region of the right parotid gland. Small soft tissue nodules in this alan on are probably atrophic parotid tissues. CT cervical spine imaging shows normal height. Normal alignment of the vertebrae. Prominent degenerat kasia change involves the inferior endplate C4. C4-5, C5-6 and C6-7 shows disc space narrowing. Mild bushra ny foraminal encroachment at C6-7. No paraspinal mass or hematoma seen. Central canal detail is inher ently limited. Concerns for traumatic disc herniation or traumatic cord injury can be further address ed with MR imaging. Atelectasis changes are present along the posterior aspect of each upper lobe and to a lesser degree each lower lobe. There is some patchy airspace disease in the posterior inferior right upper lobe abu tting the major and minor fissures. A small 7 millimeter pleural abutting nodule is present in the ri ght middle lobe. Aorta and pulmonary arterial tree enhance normally. No pericardial thickening or eff usion. No chest will mass or abnormal axillary finding. No displaced rib fracture or other significan t bony finding. Small bilateral axillary lymph nodes are present. There is a mild fullness to the subcarinal region. Patient has a moderately large hiatal hernia that extends from the GE junction to the inferior aspect of the left hilum. CT abdomen and pelvis show no injury to solid abdominal viscera. A few punctate gallstones are presen t. No active gallbladder process seen. No biliary tree dilatation. No bowel injury or significant fin ding. No free air, free fluid or abnormal stranding. No urinary bladder abnormality. There is a 7 riya timeter oval mass with dense peripheral calcification and some scattered central calcification fillin g the uterus. This is most likely a large calcified fibroid. Ovaries are absent or atrophic. No free air or free fluid. No pneumatosis. Disc and bony degenerative changes are present. There is concavity to the superior endplate L2 and L3 without overall loss in height. No assessment can be made regarding age. IMPRESSION: No acute intracranial finding. Patient has chronic sinusitis changes as detailed. No acute cervical spine finding. Bony degenerative changes are present. Patient has atrophy or resect ion of the right-side parotid gland. No acute traumatic injury to the chest. Atelectasis changes are present. Patchy right upper lobe opac ification could be a minimal infiltrate. No traumatic injury to the abdomen or pelvis. Patient has a large 7 centimeter densely calcified mass filling the uterus. This is most likely an incidental left large fibroid.
[2019-05-10] MEDS ORDERED: NA CHLORIDE 0.9% 1,000 ML ONE (15:09)
--- NOTE | 2019-05-10 15:51 | RAD REPORT ---
EXAM DESCRIPTION: RAD - Chest Single View - 05/10/2019 2:21 pm CLINICAL HISTORY: FALL FROM LADDER, back pain, abdominal pain COMPARISON: Chest Pa And Lat (2 Views) dated 11/20/2018 TECHNIQUE: AP portable chest image was obtained 05/10/2019 2:21 pm . FINDINGS: Patient is supine and a on a backboard. This creates significant artifact. Lung markings a re accentuated. No large pulmonary contusion or acute lung parenchymal process. Baseline interstitial pattern is accentuated. Atelectasis changes are present. Heart and vasculature are normal. No measur able pleural effusion and no pneumothorax. No acute bony abnormality seen. No acute aortic findings s uspected. IMPRESSION: Portable supine chest is limited but shows no gross posttraumatic injury.
--- NOTE | 2019-05-10 16:23 | ER ---
Nurse's Notes [facility] Name: Lakshmi Garcia Age: 64 yrs Sex: Female : 1955 Arrival Date: 05/10/2019 Time: 13:47 Bed 25 Private MD: Diagnosis: Contusion of back wall of thorax;Superficial injury of head Presentation: 05/10 13:40 Presenting complaint: EMS states: Patient was changing her curtains when she fell vc backwards off of the ladder. She fell straight on her back hitting her forehead on the way down. Patient complains of lower back pain, abdominal pain, and flank pain, radiating to her ribs. Positive LOC. She experienced multiple runs of bigeminy when pain increased. Transition of care: patient was not received from another setting of care. Onset of symptoms was May 10, 2019. Risk Assessment: Do you want to hurt yourself or someone else? Patient reports no desire to harm self or others. Initial Sepsis Screen: Does the patient meet any 2 criteria? No. Patient's initial sepsis screen is negative. Does the patient have a suspected source of infection? No. Patient's initial sepsis screen is negative. Care prior to arrival: IV initiated. 18 GA, in the right antecubital area, Oxygen administered. via nasal cannula. Care prior to arrival: Medication(s) given: zofran 4 mg, Fentanyl 100mg. 13:40 Method Of Arrival: [place] [facility] vc 13:40 Acuity: KAIN 2 vc Triage Assessment: 13:45 General: Appears in no apparent distress. uncomfortable, Behavior is calm, cooperative, vc appropriate for age, crying. Pain: Complains of pain in ABDOMEN, BACK, AND HEAD. Historical: - Allergies: 13:40 No Known Allergies; vc - Home Meds: 13:40 amlodipine oral [Active]; Prednisone Oral [Active]; vc - PMHx: 13:40 Hypertension; Rheumatoid Arthritis; vc - PSHx: 13:40 PLATE IN LEFT LEG; vc - Immunization history:: Adult Immunizations up to date. - Coronavirus screen:: The patient has NOT traveled to [place] in the past 14 days. - Social history:: Smoking status: Patient reports the use of cigarette tobacco products. - Ebola Screening: : No symptoms or risks identified at this time. Screenin:45 Abuse screen: Denies threats or abuse. Nutritional screening: No deficits noted. vc Tuberculosis screening: No symptoms or risk factors identified. Fall Risk Fall in past 12 months (25 points). No secondary diagnosis (0 pts). IV access (20 points). Ambulatory Aid- None/Bed Rest/Nurse Assist (0 pts). Total Brannon Fall Scale indicates Low Risk Score (25-44 pts). Fall prevention measures have been instituted. Side Rails Up X 2 Placed close to Nursing Station Frequent Obs/Assesments occuring. Assessment: 14:00 General: Appears in no apparent distress. uncomfortable, Behavior is cooperative, vc appropriate for age, crying. Pain: Complains of pain in right mid back and left mid back and right subscapular area and left subscapular area Pain does not radiate. Pain currently is 6 out of 10 on a pain scale. at worst was 8 out of 10 on a pain scale. Neuro: Level of Consciousness is awake, alert, obeys commands, Oriented to person, place, time, situation. Cardiovascular: Patient's skin is warm and dry. Respiratory: Respiratory effort is even, unlabored, shallow. GI: No signs and/or symptoms were reported involving the gastrointestinal system. : No signs and/or symptoms were reported regarding the genitourinary system. Derm: Bruising that is dark purple, on face. Musculoskeletal: Range of motion: limited in left hip and right hip limited due to pain. 15:00 Reassessment: Patient and/or family updated on plan of care and expected duration. Pain vc level reassessed. Patient states symptoms have not improved. 16:00 Reassessment: Patient and/or family updated on plan of care and expected duration. Pain vc level reassessed. Patient states symptoms have not improved. 17:00 Reassessment: Patient and/or family updated on plan of care and expected duration. Pain vc level reassessed. Patient is alert, oriented x 3, equal unlabored respirations, skin warm/dry/pink. Patient states feeling better. 17:37 Reassessment: waiting on ride. vc 18:00 Reassessment: Patient and/or family updated on plan of care and expected duration. Pain vc level reassessed. Patient is alert, oriented x 3, equal unlabored respirations, skin warm/dry/pink. Patient states feeling better. Vital Signs: 14:03 BP 125 / 84; Pulse 90; Resp 20; Temp 98.1; Pulse Ox 96% ; lt1 15:09 BP 103 / 72; Pulse 82; Resp 16; Pulse Ox 100% ; lt1 15:45 BP 100 / 80; Pulse 83; Pulse Ox 85% on R/A; vc 15:47 Pulse Ox 97% on 2 lpm NC; vc 16:15 BP 119 / 71; Pulse 75; Resp 20; Pulse Ox 97% on 2 lpm NC; vc 17:30 BP 112 / 68; Pulse 72; Resp 16; Pulse Ox 92% on R/A; vc 18:30 BP 114 / 70; Pulse 70; Resp 17; Pulse Ox 92% on R/A; vc ED Course: 13:47 Patient arrived in ED. vc 13:53 Jesus Zhou MD is Attending Physician. rn 13:55 Crispin Arevalo NP is PHCP. pm1 13:56 My Ramirez, ANDRE is Primary Nurse. vc 14:17 Initial lab(s) drawn, by me, sent to lab. Inserted IV completed by EMS. lt1 14:17 CBC with Diff Sent, Creatinine for Radiology, Type And Screen, Basic Metabolic Panel vc Sent. 14:30 CT Traumagram (Head C Spine CAP W Con) Sent. vc 14:31 Triage completed. vc 15:00 Urine Dipstick--Ancillary (enter results), Chest Single View XRAY Sent. vc 16:33 Primary Nurse role handed off by My Ramirez, RN vc 16:38 My Ramirez RN is Primary Nurse. vc 16:53 No provider procedures requiring assistance completed. vc 16:53 Arm band placed on. vc 18:50 IV discontinued, intact, bleeding controlled, No redness/swelling at site. Pressure vc dressing applied. 18:52 Patient has correct armband on for positive identification. Fall risk band placed. vc Placed in gown. Bed in low position. Call light in reach. Side rails up X2. Administered Medications: 15:03 Drug: morphine 4 mg Route: IVP; Site: right antecubital; vc 16:54 Follow up: Response: Other vc 15:07 Drug: NS 0.9% 1000 ml Route: IV; Rate: 1000 ml; Site: right antecubital; vc 16:07 Follow up: IV Intake: 1000ml vc 16:07 Follow up: IV Status: Completed infusion; IV Intake: 1000ml vc Intake: 16:07 IV: 1000ml; Total: 1000ml. vc 16:07 IV: 1000ml; Total: 2000ml. vc Outcome: 16:22 Discharge ordered by . pm1 18:50 Discharged to home via wheelchair, with family. vc 18:50 Condition: good 18:50 Discharge instructions given to patient, family, Instructed on discharge instructions, follow up and referral plans. medication usage, Demonstrated understanding of instructions, follow-up care, medications, Prescriptions given X 2. 18:52 Patient left the ED. vc Signatures: Jesus Zhou MD MD rn Crispin Arevalo, JOSE G METAL BURRER pm1 Sanjuana Bradley lt1 My Ramirez RN RN vc Corrections: (The following items were deleted from the chart) 17:37 16:31 Patient left the ED. vc vc 05/11 00:08 05/10 13:57 Presenting complaint: vc vc 05/11 00:10 00:06 URINE DIPSTICK--ANCILLARY+U.LAB.BRZ drawn and sent. vc vc 00:10 00:06 To radiology for Chest Single View+RAD.RAD.BRZ. vc vc 00:10 00:06 To radiology for Head C Spine CAP W Con+CT.RAD.BRZ. vc vc 00:10 00:06 BASIC METABOLIC PANEL+C.LAB.BRZ drawn and sent. vc vc 00:10 00:06 CBC+H.LAB.BRZ drawn and sent. vc vc 00:10 00:06 Creatinine for Radiology+C.LAB.BRZ drawn and sent. vc vc 00:10 00:06 TYPE AND SCREEN+BB.LAB.BRZ drawn and sent. vc vc
--- NOTE | 2019-05-10 16:23 | EDPHYS ---
Physician Documentation [facility] Name: Lakshmi Garcia Age: 64 yrs Sex: Female : 1955 Arrival Date: 05/10/2019 Time: 13:47 Bed 25 Private MD: ED Physician Jesus Zhou HPI: 05/10 14:46 This 64 yrs old Black Female presents to ER via EMS with complaints of Trauma Complaint.pm1 14:46 Trauma demographics: Location of Injury: The injury occurred at home. Mechanism of pm1 injury: Fall: the patient fell 3 foot tall step stool, approximately approximately 5 feet, Patient fell backwards onto her bed then onto the floor. Associated injuries: The patient sustained injury to the head, pain, forehead, upper back injury, pain, injury to the low back. Onset: The symptoms/episode began/occurred just prior to arrival. The patient has not experienced similar symptoms in the past. The patient has not recently seen a physician. Patient was on a 3 foot step stool and fell backwards while applying drapes. Historical: - Allergies: 13:40 No Known Allergies; vc - Home Meds: 13:40 amlodipine oral [Active]; Prednisone Oral [Active]; vc - PMHx: 13:40 Hypertension; Rheumatoid Arthritis; vc - PSHx: 13:40 PLATE IN LEFT LEG; vc - Immunization history:: Adult Immunizations up to date. - Coronavirus screen:: The patient has NOT traveled to [place] in the past 14 days. - Social history:: Smoking status: Patient reports the use of cigarette tobacco products. - Ebola Screening: : No symptoms or risks identified at this time. ROS: 16:21 Constitutional: Negative for fever, chills, and weight loss, Eyes: Negative for injury, pm1 pain, redness, and discharge, ENT: Negative for injury, pain, and discharge, Neck: Negative for injury, pain, and swelling, Cardiovascular: Negative for chest pain, palpitations, and edema. 16:21 Abdomen/GI: Negative for abdominal pain, nausea, vomiting, diarrhea, and constipation, Back: Negative for injury and pain, MS/Extremity: Negative for injury and deformity, Skin: Negative for injury, rash, and discoloration, Neuro: Negative for headache, weakness, numbness, tingling, and seizure. 16:21 Respiratory: Positive for cough, for two weeks, Negative for shortness of breath, wheezing. Exam: 16:21 Constitutional: This is a well developed, well nourished patient who is awake, alert, pm1 and in no acute distress. Head/Face: Normocephalic, atraumatic. Neck: Trachea midline, no thyromegaly or masses palpated, and no cervical lymphadenopathy. Supple, full range of motion without nuchal rigidity, or vertebral point tenderness. No Meningismus. Chest/axilla: Normal chest wall appearance and motion. Nontender with no deformity. No lesions are appreciated. Cardiovascular: Regular rate and rhythm with a normal S1 and S2. No gallops, murmurs, or rubs. Normal PMI, no JVD. No pulse deficits. Respiratory: Lungs have equal breath sounds bilaterally, clear to auscultation and percussion. No rales, rhonchi or wheezes noted. No increased work of breathing, no retractions or nasal flaring. Abdomen/GI: Soft, non-tender, with normal bowel sounds. No distension or tympany. No guarding or rebound. No evidence of tenderness throughout. 16:21 Skin: Warm, dry with normal turgor. Normal color with no rashes, no lesions, and no evidence of cellulitis. MS/ Extremity: Pulses equal, no cyanosis. Neurovascular intact. Full, normal range of motion. 16:21 Back: pain, of the left subscapular area, right subscapular area, left mid back and right mid back, normal spinal alignment noted, vertebral tenderness, is not appreciated. 16:21 Neuro: Orientation: is normal, Motor: is normal, moves all fours. Vital Signs: 14:03 BP 125 / 84; Pulse 90; Resp 20; Temp 98.1; Pulse Ox 96% ; lt1 15:09 BP 103 / 72; Pulse 82; Resp 16; Pulse Ox 100% ; lt1 15:45 BP 100 / 80; Pulse 83; Pulse Ox 85% on R/A; vc 15:47 Pulse Ox 97% on 2 lpm NC; vc 16:15 BP 119 / 71; Pulse 75; Resp 20; Pulse Ox 97% on 2 lpm NC; vc 17:30 BP 112 / 68; Pulse 72; Resp 16; Pulse Ox 92% on R/A; vc 18:30 BP 114 / 70; Pulse 70; Resp 17; Pulse Ox 92% on R/A; vc MDM: 13:53 Patient medically screened. rn 16:21 Data reviewed: vital signs. Data interpreted: Pulse oximetry: on room air is 100 %. pm1 Interpretation: normal. Counseling: I had a detailed discussion with the patient and/or guardian regarding: the historical points, exam findings, and any diagnostic results supporting the discharge/admit diagnosis, lab results, radiology results, the need for outpatient follow up, to return to the emergency department if symptoms worsen or persist or if there are any questions or concerns that arise at home. 05/10 13:56 Order name: Basic Metabolic Panel pm1 05/10 13:56 Order name: CBC with Diff pm1 05/10 13:56 Order name: Creatinine for Radiology 1 05/10 13:56 Order name: Type And Screen 05/10 14:49 Order name: CBC with Automated Diff; Complete Time: 15:19 EDMN 05/10 14:52 Order name: Basic Metabolic Panel; Complete Time: 15:19 EDMN 05/10 13:56 Order name: CT Traumagram (Head C Spine CAP W Con) [facility] 05/10 14:03 Order name: Chest Single View XRAY [facility] 05/10 14:58 Order name: Creatinine (Radiology Only); Complete Time: 15:19 EDMN 05/10 15:17 Order name: Type and Screen; Complete Time: 15:19 EDMN 05/10 15:32 Order name: CT; Complete Time: 16:40 EDMN 05/10 15:53 Order name: Urine Dipstick--Ancillary (enter results) [place] 05/10 16:36 Order name: RAD; Complete Time: 16:40 EDMN 05/10 13:56 Order name: Labs collected and sent; Complete Time: 14:18 pm1 05/10 13:56 Order name: Urine Dipstick-Ancillary (obtain specimen); Complete Time: 15:35 pm1 Administered Medications: 15:03 Drug: morphine 4 mg Route: IVP; Site: right antecubital; vc 16:54 Follow up: Response: Other vc 15:07 Drug: NS 0.9% 1000 ml Route: IV; Rate: 1000 ml; Site: right antecubital; vc 16:07 Follow up: IV Intake: 1000ml vc 16:07 Follow up: IV Status: Completed infusion; IV Intake: 1000ml vc Disposition: 05/11 07:01 Co-signature as Attending Physician, Jesus Zhou MD. rn Disposition: 05/10/19 16:22 Discharged to Home. Impression: Contusion of back wall of thorax, Superficial injury of head. - Condition is Stable. - Discharge Instructions: Contusion, Head Injury, Adult. - Prescriptions for Tylenol- Codeine #3 300-30 mg Oral Tablet - take 2 tablets by ORAL route every 6 hours As needed; 20 tablet. Diclofenac Sodium 75 mg Oral Tablet Sustained Release - take 1 tablet by ORAL route 2 times per day; 30 tablet. Zithromax Z- Juan 250 mg Oral Tablet - take 1 tablet by ORAL route as directed for 5 days Day 1 - take two (2) tablets one time. Day 2, 3, 4 , 5 take one (1) tablet once daily.; 6 tablet. - Medication Reconciliation Form, Thank You Letter, Antibiotic Education, Prescription Opioid Use form. - Follow up: Emergency Department; When: As needed; Reason: Worsening of condition. - Problem is new. - Symptoms have improved. Signatures: Dispatcher [employer] EDMS Jesus Zhou MD MD rn Marinas, Patrick, MOLD TOOLING TECHNICIAN MOLD TOOLING TECHNICIAN pm1 My Ramirez RN RN vc Corrections: (The following items were deleted from the chart) 05/10 16:31 16:22 05/10/2019 16:22 Discharged to Home. Impression: Contusion of back wall of vc thorax; Superficial injury of head. Condition is Stable. Forms are Medication Reconciliation Form, Thank You Letter, Antibiotic Education, Prescription Opioid Use. Follow up: Emergency Department; When: As needed; Reason: Worsening of condition. Problem is new. Symptoms have improved. pm1 18:52 16:31 05/10/2019 16:22 Discharged to Home. Impression: Contusion of back wall of vc thorax; Superficial injury of head. Condition is Stable. Forms are Medication Reconciliation Form, Thank You Letter, Antibiotic Education, Prescription Opioid Use. Follow up: Emergency Department; When: As needed; Reason: Worsening of condition. Problem is new. Symptoms have improved. vc
[2019-05-10 17:00] VITALS: TEMP 98.1
[2019-05-10 19:56] VITALS: O2SAT 97
[2019-05-10 19:58] VITALS: BP 119/71
[2019-05-10 20:37] LABS: Urine Blood TRACE (NEG); Urine Glucose NEGATIVE (NEG); Urine Protein NEGATIVE (NEG); Urine Specific Gravity 1.015 (1.005-1.030)
== END 2019-05-10 18:52 | disposition home or self-care (01) ==
LOC: ER 13:45
DX: S00.90XA Unspecified superficial injury of unspecified part of head, initial encounter (principal); W17.89XA Other fall from one level to another, initial encounter; Y93.89 Activity, other specified; Y92.003 Bedroom of unspecified non-institutional (private) residence as the place of occurrence of the external cause; I10 Essential (primary) hypertension; Z72.0 Tobacco use
CPT/HCPCS: 96361; 85025; 80048; 36415; 86900; 86850; 86901; 81003; 70450; 72125; 71260; 74177; 71045; 96374; 99284; Q9967; J7030; J2405

== ENCOUNTER 2020-10-21 15:21 | Inpatient (IN) | payer OTHER ==
--- OUTSIDE RECORDS SUMMARY | 2020-10-21 15:25 | XMS REPORT | Continuity of Care Document ---
:1955 Author Organization [facility] t Address [address] [place] [address] Care Team Providers Name Role Phone Nir Rojas MD Attending Clinician Nurse, Urgent Care Attending Clinician Unavailable Doctor Unassigned, Name Attending Clinician Unavailable [place] GERBER, K.H. Attending Clinician Problems This patient has no known problems. Allergies, Adverse Reactions, Alerts This patient has no known allergies or adverse reactions. Medications This patient has no known medications. Procedures This patient has no known procedures. Encounters Start End Encounter Admission Attending Care Care Encounter Source Date/Time Date/Time Type Type Clinicians Facility Department ID 2020-10-21 2020-10-21 Telephone LIZBETH Rojas [id number] 00:00:00 00:00:00 [facility] [id number] [place] [id number] [place] [phone] nal 0[address] 2020-10-20 2020-10-20 Nurse NurseMaksim [facility] [id number] 17:29:09 17:44:09 Visit Urgent Care Health [id number] [place] [id number] [place] [phone] nal 044 [address] 2020-10-20 2020-10-20 Emergency [facility] [id number] 16:59:00 17:40:00 [place] [id number] [place] [id number] [place] [id number] 2020-10-20 2020-10-20 Orders Doctor EFREN [id number] 00:00:00 00:00:00 Only Unassigned, [place]EN[place]AM[place] [id number] [place] [facility] [id number] 2020-10-20 2020-10-20 Telephone [facility] [id number] 00:00:00 00:00:00 [employer] [facility] [id number] [place] [id number] [facility] [phone] nal 044 Office [address] One 2020-10-19 2020-10-19 [facility] [id number] 10:44:34 11:28:04 Visit Delmer Betancourt [id number] [place] [id number] [place] [phone] nal 059 Building Results This patient has no known results.
--- NOTE | 2020-10-21 16:53 | RAD REPORT ---
EXAM DESCRIPTION: CT - Head Brain Wo Cont - 10/21/2020 4:26 pm CLINICAL HISTORY: CONFUSED COMPARISON: Head C Spine Cap W Con dated 05/10/2019 TECHNIQUE: Axial 5 mm thick images of the head were obtained without IV contrast. All CT scans are performed using dose optimization technique as appropriate and may include automated exposure control or mA/KV adjustment according to patient size. FINDINGS: No intracranial hemorrhage, mass, edema or shift of mid-line structures. No acute infarcti on changes seen. Mild atrophy and chronic ischemic changes are present matching comparison. Ventricle s are in proportion to volume loss. Patient has a normal variant cavum septum pellucidum et vergae. P hysiologic and arterial calcifications are present. Mastoid air cells are clear. Chronic complete opacification of the frontal sinuses and anterior ethmo id air cells noted. No acute bony findings. IMPRESSION: Negative non-contrast CT head examination for acute finding. Above detailed findings are similar to the April 2019 study.
[2020-10-21 16:57] LABS: Urine Blood 1+ (Negative); Urine Glucose Negative (Negative); Urine Protein Negative (Negative); Urine pH 6.5 (5.0-7.0)
[2020-10-21 20:36] LABS: Absolute Lymphocytes (CBC) 0.8 K/uL (0.7-4.9); Basophils % 0.3 % (0-1.3); Hematocrit 45.9 % (36.0-45.0); Lymphocytes % 19.7 % (15.3-44.8); MPV 7.8 fL (7.6-11.3); RBC Red Blood Cell Count 5.53 M/uL (3.86-4.86)
[2020-10-21 20:39] LABS: Protime INR 1.07
[2020-10-21 20:53] LABS: ALT/SGPT 31 U/L (12-78); AST/SGOT 40 U/L (15-37); Albumin 3.6 g/dL (3.4-5.0); Alkaline Phosphatase 96 U/L (45-117); BUN Blood Urea Nitrogen 20 mg/dL (7-18); Bicarbonate 28 mmol/L (21-32); Bilirubin Direct 0.2 mg/dL (0-0.2); Bilirubin Total 0.9 mg/dL (0.2-1.0); Glucose Level 78 mg/dL (74-106); Magnesium 1.9 mg/dL (1.8-2.4); NT PRO-BNP 172 pg/mL (<125); Potassium 3.4 mmol/L (3.5-5.1); Protein, Total 9.4 g/dL (6.4-8.2); Sodium Level 139 mmol/L (136-145); Troponin (Emerg Dept Use Only) < 0.02 ng/mL (0.0-0.045)
--- NOTE | 2020-10-21 20:59 | RAD REPORT ---
EXAM DESCRIPTION: RAD - Chest Single View - 10/21/2020 8:24 pm CLINICAL HISTORY: weakness, shortness of breath COMPARISON: April 2019 TECHNIQUE: AP portable chest image was obtained 10/21/2020 8:24 pm . FINDINGS: Prominent interstitial pattern is present. Lung markings are more prominent in the right b ase part of which is atelectasis. Early right base infiltrate is also suspected. This is not a dense consolidation. No failure or volume overload. Heart and vasculature are normal. No measurable pleural effusion and no pneumothorax. No acute bony abnormality seen. No acute aortic findings suspected. IMPRESSION: Suspected early right lung base pneumonia.
[2020-10-21 21:06] LABS: Blood Morphology Comment NOT SEEN (NOT SEEN); Platelet Estimate ADEQ; White Blood Cell Scan OK (OK)
--- NOTE | 2020-10-21 21:26 | EDPHYS ---
Physician Documentation [facility] Name: Lakshmi Garcia Age: 65 yrs Sex: Female : 1955 Arrival Date: 10/21/2020 Time: 15:23 Bed 13 Private MD: ED Physician Miguel Ayala HPI: 10/21 19:30 This 65 yrs old Black Female presents to ER via Wheelchair with complaints of mh7 Confusion,unable to stand, Weakness. 19:30 The patient presents to the emergency department with weakness of the entire body, mh7 generalized weakness, that is moderate, difficult walking, the patient is off balance, confusion. Onset: The symptoms/episode began/occurred 4 day(s) ago. Context: occurred at home, occurred while the patient was unknown. Associated signs and symptoms: Pertinent positives: altered mental status, weakness, Pertinent negatives: chills, dizziness, fever, headache, nausea, neck stiffness, paresthesias, seizure, syncope, near-syncope, blurred vision, double vision, visual field changes, loss of vision. Severity of symptoms: At their worst the symptoms were moderate yesterday, in the emergency department the symptoms are unchanged. Patient's baseline: Neuro: alert and fully oriented, Motor: no deficits, Ambulation: walks without assistance, Speech: normal. Current symptoms: off balance. Historical: - Allergies: 16:00 Codeine; ca1 - PMHx: 16:00 Hypertension; Rheumatoid Arthritis; ca1 16:01 CVA; ca1 - Immunization history:: Client reports receiving the 2nd dose of the Covid vaccine, Client reports receiving the 1st dose of the Covid vaccine. - Social history:: Smoking status: Patient denies any tobacco usage or history of. ROS: 19:30 Constitutional: Negative for fever, chills, and weight loss, Eyes: Negative for injury, mh7 pain, redness, and discharge, ENT: Negative for injury, pain, and discharge, Neck: Negative for injury, pain, and swelling, Cardiovascular: Negative for chest pain, palpitations, and edema, Respiratory: Negative for shortness of breath, cough, wheezing, and pleuritic chest pain, Abdomen/GI: Negative for abdominal pain, nausea, vomiting, diarrhea, and constipation, Back: Negative for injury and pain, : Negative for injury, bleeding, discharge, and swelling, MS/Extremity: Negative for injury and deformity, Skin: Negative for injury, rash, and discoloration, Psych: Negative for depression, anxiety, suicide ideation, homicidal ideation, and hallucinations, Allergy/Immunology: Negative for hives, rash, and allergies, Endocrine: Negative for neck swelling, polydipsia, polyuria, polyphagia, and marked weight changes, Hematologic/Lymphatic: Negative for swollen nodes, abnormal bleeding, and unusual bruising. Exam: 19:30 Constitutional: This is a well developed, well nourished patient who is awake, alert, mh7 and in no acute distress. Head/Face: Normocephalic, atraumatic. Eyes: Pupils equal round and reactive to light, extra-ocular motions intact. Lids and lashes normal. Conjunctiva and sclera are non-icteric and not injected. Cornea within normal limits. Periorbital areas with no swelling, redness, or edema. Neck: Trachea midline, no thyromegaly or masses palpated, and no cervical lymphadenopathy. Supple, full range of motion without nuchal rigidity, or vertebral point tenderness. No Meningismus. Chest/axilla: Normal chest wall appearance and motion. Nontender with no deformity. No lesions are appreciated. Cardiovascular: Regular rate and rhythm with a normal S1 and S2. No gallops, murmurs, or rubs. Normal PMI, no JVD. No pulse deficits. Respiratory: Lungs have equal breath sounds bilaterally, clear to auscultation and percussion. No rales, rhonchi or wheezes noted. No increased work of breathing, no retractions or nasal flaring. Abdomen/GI: Soft, non-tender, with normal bowel sounds. No distension or tympany. No guarding or rebound. No evidence of tenderness throughout. Back: No spinal tenderness. No costovertebral tenderness. Full range of motion. Skin: Warm, dry with normal turgor. Normal color with no rashes, no lesions, and no evidence of cellulitis. MS/ Extremity: Pulses equal, no cyanosis. Neurovascular intact. Full, normal range of motion. 19:30 Psych: Awake, alert, with orientation to person, place and time. Behavior, mood, and affect are within normal limits. 19:30 Neuro: Orientation: is normal, Mentation: is normal, Memory: is normal, Cranial nerves: grossly normal, Cerebellar function: is grossly normal, Motor: is normal, Sensation: is normal, Gait: ataxic, seizure activity, is not displayed by the patient, Abnormal movements: there are no abnormal movements. Vital Signs: 15:54 BP 145 / 90; Pulse 70; Resp 16 S; Temp 97.8(TE); Pulse Ox 95% on R/A; Weight 56.25 kg ca1 (R); Height 5 ft. 2 in. (157.48 cm) (R); 20:30 BP 147 / 96; Pulse 60; Resp 18; Temp 98.2(TE); Pulse Ox 98% on R/A; aa5 22:45 BP 155 / 89; Pulse 60; Resp 16 S; Pulse Ox 98% on R/A; aa5 15:54 Body Mass Index 22.68 (56.25 kg, 157.48 cm) ca1 MDM: 19:30 Data reviewed: vital signs, nurses notes, lab test result(s), cardiac enzymes, CBC, [facility] electrolytes, urinalysis, EKG, radiologic studies, CT scan, plain films. Data interpreted: Pulse oximetry: on room air is 95 %. Interpretation: normal. Counseling: I had a detailed discussion with the patient and/or guardian regarding: the historical points, exam findings, and any diagnostic results supporting the discharge/admit diagnosis, the presence of at least one elevated blood pressure reading (>120/80) during this emergency department visit, lab results, radiology results, the need for further work-up and treatment in the hospital. Response to treatment: the patient's symptoms have mildly improved after treatment. 21:26 Patient medically screened. [facility] 10/21 16:57 Order name: Urine Dipstick-Ancillary; Complete Time: 19:27 EDKS 10/21 19:49 Order name: Basic Metabolic Panel [facility] 10/21 19:49 Order name: CBC with Diff [facility] 10/21 19:49 Order name: LFT's [facility] 10/21 19:49 Order name: Magnesium [facility] 10/21 19:49 Order name: NT PRO-BNP [facility] 10/21 19:49 Order name: PT-INR; Complete Time: 20:42 [facility] 10/21 19:49 Order name: Troponin (emerg Dept Use Only); Complete Time: 20:58 [facility] 10/21 19:49 Order name: Urine Microscopic Only [facility] 10/21 19:49 Order name: Urine Culture [facility] 10/21 19:49 Order name: UDS [facility] 10/21 19:49 Order name: Acetaminophen; Complete Time: 20:58 [facility] 10/21 19:49 Order name: Salicylate; Complete Time: 20:58 [facility] 10/21 19:50 Order name: Basic Metabolic Panel; Complete Time: 20:58 [facility] 10/21 16:01 Order name: CT Head Brain wo Cont; Complete Time: 19:27 ca1 10/21 19:50 Order name: CBC with Automated Diff; Complete Time: 21:08 [facility] 10/21 19:50 Order name: Liver (Hepatic) Function; Complete Time: 20:58 [facility] 10/21 19:50 Order name: Magnesium; Complete Time: 20:58 [facility] 10/21 19:50 Order name: NT PRO-BNP; Complete Time: 20:58 [facility] 10/21 20:22 Order name: Lipase [facility] 10/21 21:06 Order name: CBC Smear Scan; Complete Time: 21:08 [facility] 10/21 21:07 Order name: Blood Culture Adult (2) [facility] 10/21 21:08 Order name: Blood Culture [facility] 10/21 21:23 Order name: PTH Intact [facility] 10/21 21:23 Order name: Ionized Calcium [facility] 10/21 21:23 Order name: Vitamin D, 25 (OH), TOTAL [facility] 10/21 21:23 Order name: Vitamin D,1,25 Dihydroxy [facility] 10/21 22:41 Order name: Urine Dipstick-Ancillary [facility] 10/21 23:16 Order name: SARS-COV-2 RT PCR [facility] 10/21 19:49 Order name: XRAY Chest (1 view); Complete Time: 21:06 [facility] 10/21 19:49 Order name: EKG; Complete Time: 19:51 [facility] 10/21 19:49 Order name: Cardiac monitoring; Complete Time: 21:52 [facility] 10/21 19:49 Order name: EKG - Nurse/Tech; Complete Time: 20:02 [facility] 10/21 19:49 Order name: IV Saline Lock; Complete Time: 21:52 [facility] 10/21 19:49 Order name: Labs collected and sent; Complete Time: 21:52 [facility] 10/21 19:49 Order name: O2 Per Protocol; Complete Time: 20:02 [facility] 10/21 19:49 Order name: O2 Sat Monitoring; Complete Time: 20:02 [facility] 10/21 22:46 Order name: Estelita: VO received at 2220; Complete Time: 22:46 aa5 Administered Medications: 20:06 CANCELLED (Duplicate Order): Lopressor (metoprolol TARTRATE) 100 mg PO once la1 22:15 Drug: Rocephin (cefTRIAXone) 1 grams Route: IV; Rate: per protocol; Site: right aa5 antecubital; 22:18 Follow up: Response: No adverse reaction aa5 22:15 Drug: NS 0.9% 1000 ml Route: IV; Rate: 1000 ml; Site: right antecubital; aa5 23:31 Follow up: IV Status: Infusion continued upon admission aa5 22:15 Drug: NS 0.9% 1000 ml Route: IV; Rate: 1000 ml; Site: right antecubital; aa5 23:31 Follow up: IV Status: Infusion continued upon admission 5 22:18 Drug: Zithromax (azithromycin) 500 mg Route: IVPB; Infused Over: 1 hrs; Site: right aa5 antecubital; 23:31 Follow up: IV Status: Infusion continued upon admission; Infusion continued upon aa5 admission. Pt keeps occuding IV, forgets to not bend arm, unable to obtain FA or hand IV access to prevent this issue. 22:47 CANCELLED (Physician Discretion): NS 0.9% 1000 ml IV at 1000 ml once aa5 23:32 Not Given (Admitting nurse to administer (Chamberlain notified)): Lasix (furosemide) 40 mg aa5 IVP once; give over 2 minutes 23:32 Not Given (Admission nurse to give (Chamberlain was notified)): NS 0.9% 1000 ml IV at 100 aa5 ml/hr continuous Disposition Summary: 10/21/20 21:26 Hospitalization Ordered Hospitalization Status: Inpatient Admission [facility] Provider: Flavio Parada [facility] Location: Telemetry/MedSurg (Inpatient) [facility] Condition: Stable [facility] Problem: new [facility] Symptoms: have improved [facility] Bed/Room Type: Standard [facility] Room Assignment: 216(10/21/20 22:12) Diagnosis - Confusion mh7 - Pneumonia mh7 - Ataxia 7 - Hypercalcemia [facility] Forms: - Medication Reconciliation Form 7 - SBAR form [facility] Signatures: Dispatcher [employer] EDMS Thu Orosco RN RN aa5 Tomas Atkinson, BUSINESS SERVICES TECH-C BUSINESS SERVICES TECH-Cla1 Molly Barrios RN RN Manisha Dick RN RN [facility] Miguel Ayala MD MD [facility] Corrections: (The following items were deleted from the chart) 20:06 20:05 Lopressor (metoprolol TARTRATE) 100 mg PO once ordered. la1 la1 22:12 21:26 7 cg 22:19 22:06 CORONAVIRUS+MR.LAB.BRZ ordered. EDMS EDMS 22:47 21:07 NS 0.9% 1000 ml IV at 1000 ml once ordered. [place] [id number] 22:47 22:47 NS 0.9% 1000 ml IV at 1000 ml once ordered. 5 aa5
--- NOTE | 2020-10-21 21:26 | ER ---
Nurse's Notes [facility] Name: Lakshmi Garcia Age: 65 yrs Sex: Female : 1955 Arrival Date: 10/21/2020 Time: 15:23 Bed 13 Private MD: Diagnosis: Confusion;Pneumonia;Ataxia;Hypercalcemia Presentation: 10/21 15:54 Chief complaint: Sister: Started noticing this Sunday10/17/2020. Then gradually in the ca1 last couple days, she's gotten weaker, she's unable to walk on her own, wobbling, confused. Oriented to person, situation. Sister reports she's normally A\T\Ox4 and walks on her own. VAN Negative. No facial droop. Coronavirus screen: Client denies travel out of the [place] in the last 14 days. At this time, the client does not indicate any symptoms associated with coronavirus-19. Ebola Screen: Patient negative for fever greater than or equal to 101.5 degrees Fahrenheit, and additional compatible Ebola Virus Disease symptoms Patient denies exposure to infectious person. Patient denies travel to an Ebola-affected area in the 21 days before illness onset. No symptoms or risks identified at this time. Initial Sepsis Screen: Does the patient meet any 2 criteria? No. Patient's initial sepsis screen is negative. Does the patient have a suspected source of infection? No. Patient's initial sepsis screen is negative. Risk Assessment: Do you want to hurt yourself or someone else? Patient reports no desire to harm self or others. Onset of symptoms was October 17, 2020. 15:54 Method Of Arrival: Wheelchair ca1 15:54 Acuity: KAIN 3 ca1 Stroke Activation: Symptom onset > 6 hours Physician: Stroke Attending; Name: ; Notified At: ; Arrived At: Physician: Chief Stroke Resident; Name: ; Notified At: ; Arrived At: Physician: Stroke Resident; Name: ; Notified At: ; Arrived At: Physician: ED Attending; Name: ; Notified At: ; Arrived At: Physician: ED Resident; Name: ; Notified At: ; Arrived At: Historical: - Allergies: 16:00 Codeine; ca1 - PMHx: 16:00 Hypertension; Rheumatoid Arthritis; ca1 16:01 CVA; ca1 - Immunization history:: Client reports receiving the 2nd dose of the Covid vaccine, Client reports receiving the 1st dose of the Covid vaccine. - Social history:: Smoking status: Patient denies any tobacco usage or history of. Screenin:13 Abuse screen: No signs of abuse noted. Nutritional screening: No deficits noted. aa5 Tuberculosis screening: No symptoms or risk factors identified. Fall Risk Fall in past 12 months (25 points). IV access (20 points). Mental Status- Overestimates/Forgets Limitations (15 pts.). Total Brannon Fall Scale indicates High Risk Score (45 or more points). Fall prevention measures have been instituted. Side Rails Up X 2 Placed Close to Nursing Station. Assessment: 19:20 General: Appears comfortable, Behavior is calm, cooperative. Pain: Denies pain. Neuro: aa5 Level of Consciousness is awake, obeys commands, confused, Oriented to person, time, Senior Warehouse Clerk are weak bilaterally Moves all extremities. Gait is unable to assess at this time. . Speech is normal, Facial symmetry appears normal. Cardiovascular: Heart tones S1 S2 present Rhythm is regular. Respiratory: Airway is patent Respiratory effort is even, unlabored, Respiratory pattern is regular, symmetrical, Breath sounds are diminished bilaterally. GI: Abdomen is round non-distended, Bowel sounds present X 4 quads. Abd is soft X 4 quads. : No signs and/or symptoms were reported regarding the genitourinary system. EENT: No signs and/or symptoms were reported regarding the EENT system. Derm: Skin is dry, Skin is normal, Skin temperature is warm Swelling noted to gil hands, pt's sister this is pt's baseline. Musculoskeletal: Range of motion: intact in all extremities. 20:11 Reassessment: x-ray at bedside. aa5 20:11 Neuro: Level of Consciousness is awake, obeys commands, confused, Oriented to person, aa5 situation. Respiratory: Airway is patent Respiratory effort is even, unlabored, Respiratory pattern is regular, symmetrical. Derm: Skin is dry, Skin is normal, Skin temperature is warm. 21:30 Reassessment: Pt resting in bed with eyes closed, respirations even and unlabored, skin aa5 is normal/warm/dry. . 22:30 Reassessment: Patient denies pain at this time. Pt sitting up in bed watching TV. . aa5 Neuro: Level of Consciousness is awake, obeys commands, confused, Oriented to person, situation. Respiratory: Airway is patent Respiratory effort is even, unlabored, Respiratory pattern is regular, symmetrical. Derm: Skin is dry, Skin is normal, Skin temperature is warm. Vital Signs: 15:54 BP 145 / 90; Pulse 70; Resp 16 S; Temp 97.8(TE); Pulse Ox 95% on R/A; Weight 56.25 kg ca1 (R); Height 5 ft. 2 in. (157.48 cm) (R); 20:30 BP 147 / 96; Pulse 60; Resp 18; Temp 98.2(TE); Pulse Ox 98% on R/A; aa5 22:45 BP 155 / 89; Pulse 60; Resp 16 S; Pulse Ox 98% on R/A; aa5 15:54 Body Mass Index 22.68 (56.25 kg, 157.48 cm) ca1 ED Course: 15:23 Patient arrived in ED. mr 16:00 Triage completed. ca1 16:00 Arm band placed on right wrist. ca1 16:26 CT Head Brain wo Cont In Process Unspecified. EDMS 19:20 Patient has correct armband on for positive identification. Placed in gown. Bed in low aa5 position. Call light in reach. Side rails up X2. Adult w/ patient. environmental health nurse on. Pulse ox on. NIBP on. 19:26 Miguel Aylaa MD is Attending Physician. 7 20:01 Thu Orosco, ANDRE is Primary Nurse. aa5 20:24 XRAY Chest (1 view) In Process Unspecified. EDMS 21:25 Flavio Parada DO is Hospitalizing Provider. 7 22:00 First set of blood cultures drawn by ri. aa5 22:13 Initial lab(s) drawn, by ri, sent to lab. Inserted saline lock: 20 gauge in right aa5 antecubital area, using aseptic technique. Blood collected. 22:13 Second set of blood cultures drawn by ri. aa5 22:33 Capone cath inserted, using sterile technique, 16 Fr., by ri, balloon inflated, to aa5 gravity drainage, urine specimen collected. returned clear yellow urine. Patient tolerated poorly. 23:00 No provider procedures requiring assistance completed. aa5 23:25 Patient admitted, IV remains in place. aa5 Administered Medications: 20:06 CANCELLED (Duplicate Order): Nidiapressor (metoprolol TARTRATE) 100 mg PO once la1 22:15 Drug: Rocephin (cefTRIAXone) 1 grams Route: IV; Rate: per protocol; Site: right aa5 antecubital; 22:18 Follow up: Response: No adverse reaction aa 22:15 Drug: NS 0.9% 1000 ml Route: IV; Rate: 1000 ml; Site: right antecubital; aa5 23:31 Follow up: IV Status: Infusion continued upon admission aa5 22:15 Drug: NS 0.9% 1000 ml Route: IV; Rate: 1000 ml; Site: right antecubital; aa5 23:31 Follow up: IV Status: Infusion continued upon admission aa 22:18 Drug: Zithromax (azithromycin) 500 mg Route: IVPB; Infused Over: 1 hrs; Site: right aa5 antecubital; 23:31 Follow up: IV Status: Infusion continued upon admission; Infusion continued upon aa5 admission. Pt keeps occuding IV, forgets to not bend arm, unable to obtain FA or hand IV access to prevent this issue. 22:47 CANCELLED (Physician Discretion): NS 0.9% 1000 ml IV at 1000 ml once [facility] 23:32 Not Given (Admitting nurse to administer (Virgin notified)): Lasix (furosemide) 40 mg aa5 IVP once; give over 2 minutes 23:32 Not Given (Admission nurse to give (Virgin was notified)): NS 0.9% 1000 ml IV at 100 aa5 ml/hr continuous Outcome: 21:26 Decision to Hospitalize by Provider. [facility] 23:27 Admitted to Med/surg accompanied by tech, via stretcher, with chart, Report called to joseph Dupree RN (Notified of need to administer Lasix and administer NS at 100cc/hr after 2 L NS bolus due to boluses not complete at this time) 23:27 Condition: stable 23:27 Instructed on the need for admit. 23:33 Patient left the ED. [facility] Signatures: Dispatcher [facility] JuanchoNancie Kwesi, ANDRE Anidno RN, Cheryl, RN RN ca1 Holmes, Maurice, MD MD [facility] Corrections: (The following items were deleted from the chart) 16:02 15:54 Chief complaint: Sister: Started noticing this Sunday10/17/2020. Then gradually in ca1 the last couple days, she's gotten weaker, she's unable to walk on her own, wobbling, confused. Oriented to person, situation. Sister reports she's normally A\T\Ox4 and walks on her own. ca1 22:48 22:15 NS 0.9% 1000 ml IV at 100 ml/hr in right antecubital aa5 aa5 23:29 23:27 Admitted to Med/surg accompanied by kim, via stretcher, with chart, Report aa5 called to ANDRE Dupree aa5
--- NOTE | 2020-10-21 22:36 | P.HP ---
Certification for Inpatient Patient admitted to: Inpatient With expected LOS: >2 Midnights Patient will require the following post-hospital care: None Practitioner: I am a practitioner with admitting privileges, knowledge of patient current condition, hospital course, and medical plan of care. Services: Services provided to patient in accordance with Admission requirements found in Title 42 Section 412.3 of the Code of Federal Regulations Patient History Date of Service: 10/21/20 Reason for admission: AMS, hypercalcemia History of Present Illness: 65-year-old -Sudanese female with history of hypertension, rheumatoid arthritis, CVA presents emergency department for altered mental status. Sister reports that she lives alone and since Sunday she has been not acting herself having difficulty walking and seemed disoriented. Patient was evaluated in the emergency department, CT head brain without contrast negative for any acute findings, labs were significant for white blood cell count 4.2 hemoglobin 15.1 hematocrit 45.9 potassium 3.4 creatinine 1.49 GFR 42 BUN 20 bicarb 28 calcium 14.5 BNP 172. Chest x-ray demonstrates possible right lower lobe pneumonia. Case was discussed with hospitalist attending, nephrology recommendation is to obtain PTH intact, vitamin D levels and give 2 L normal saline bolus, 40 of Lasix followed by NS at 100 cc/h overnight. Vital signs stable. Will admit for further evaluation and management. Allergies No Known Allergies Allergy (Unverified 05/10/19 14:07) - Past Medical/Surgical History -: Hypertension -: Rheumatoid arthritis -: CVA -: Ankle surgery Psychosocial/ Personal History: Lives alone currently - Family History Mother -: Stroke Father -: Heart disease - Social History Smoking Status: Never smoker Alcohol use: No CD- Drugs: No Caffeine use: Yes Place of Residence: Home Review of Systems is unable to be obtained Physical Examination - Physical Exam General: Alert, Oriented x2 HEENT: Other (Mucous membranes dry) Neck: Supple Respiratory: Clear to auscultation bilaterally, Normal air movement Cardiovascular: No edema Capillary refill: <2 Seconds Gastrointestinal: Normal bowel sounds, Soft and benign Musculoskeletal: No swelling, No contractures, No erythema Integumentary: No breakdown, No significant lesion, No tenderness/swelling Neurological: Normal speech, Normal strength at 5/5 x4 extr, Normal tone, Sensation intact, Cranial nerves 3-12 intact, Other (Patient follows commands well seems encephalopathic) - Studies Laboratory Data (last 24 hrs) 10/21/20 20:24: PT 12.3, INR 1.07 10/21/20 20:24: WBC 4.20 L, Hgb 15.1 H, Hct 45.9 H, Plt Count 169 10/21/20 20:24: Sodium 139, Potassium 3.4 L, BUN 20 H, Creatinine 1.49 H, Glucose 78, Magnesium 1.9, Total Bilirubin 0.9, AST 40 H, ALT 31, Alkaline Phosphatase 96 Assessment and Plan - Plan Assessment: Metabolic encephalopathy secondary to severe hypercalcemia Acute kidney injury Hypokalemia Suspected right lower lobe pneumonia Hypertension Rheumatoid arthritis History of CVA Plan: Metabolic encephalopathy secondary to severe hypercalcemia: Case discussed with nephrology, PTH intact, vitamin D levels pending. Albumin normal. Continue with IV fluids/Lasix, possibly related to malignancy, will recheck renal function tomorrow to see if patient would be candidate for CT with versus without contrast. Acute kidney injury: Continue with IV fluids, recheck chemistries in the [facility], nephrology consulted for additional assistance with VINCE/hypercalcemia. Hypokalemia: Potassium protocol in place. Suspected right lower lobe pneumonia: Continue with Zithromax/Rocephin at this time. Will obtain procalcitonin, CT scan. Doubt infectious process at this time. Hypertension: Evaluate/continue medication. Rheumatoid arthritis: Evaluate/continue medication. History of CVA:Evaluate/continue medication DVT PPX: Lovenox Code status: Full Discharge Plan: Home Plan to discharge in: Greater than 2 days - Advance Directives Does patient have a Living Will: No Does patient have a Durable POA for Healthcare: No - Code Status/Comfort Care Code Status Assessed: Yes (Full code) Critical Care: No Time Spent Managing Pts Care (In Minutes): 55
[2020-10-21] MEDS ORDERED: ONDANSETRON 4 MG/2 ML VIAL IV PRN (22:40)
[2020-10-21] MEDS ORDERED: NA CHLORIDE 0.9% 1,000 ML IV SCH (22:40)
[2020-10-21 22:41] LABS: Urine Blood 1+ (Negative); Urine Glucose Negative (Negative); Urine Protein Negative (Negative)
[2020-10-21] MEDS ORDERED: NA CHLORIDE 0.9% 2,000 ML ONE (22:42)
[2020-10-21] MEDS ORDERED: AZITHROMYCIN 500 MG INJ IVPB ONE (22:42)
[2020-10-21] MEDS ORDERED: NA CHLORIDE 0.9% 250 ML ONE (22:42)
[2020-10-21] MEDS ORDERED: CEFTRIAXONE/SWI 1gm 1 GM/10 ML SYR ONE (22:43)
[2020-10-21 22:58] LABS: Barbiturates NEGATIVE (NEGATIVE); Benzodiazepines NEGATIVE (NEGATIVE); Cocaine POSITIVE (NEGATIVE); METHAMPHETAM NEGATIVE (NEGATIVE); Methadone NEGATIVE (NEGATIVE); Opiates NEGATIVE (NEGATIVE); Phencyclidine NEGATIVE (NEGATIVE); THC Cannibis NEGATIVE (NEGATIVE)
[2020-10-21 23:18] LABS: Urine Bacteria 20-50 /HPF (<20); Urine Coarse Granular Casts FEW /LPF (NONE SEEN); Urine Mucus 1+ /HPF (NONE SEEN)
[2020-10-22 00:14] VITALS: BMI 20.7
[2020-10-22] MEDS ORDERED: FUROSEMIDE 40 MG/4 ML VIAL IV ONE (01:00)
[2020-10-22 03:44] LABS: Absolute Lymphocytes (CBC) 0.7 K/uL (0.7-4.9); Basophils % 0.6 % (0-1.3); Hematocrit 43.1 % (36.0-45.0); Lymphocytes % 20.3 % (15.3-44.8); MPV 7.7 fL (7.6-11.3); RBC Red Blood Cell Count 5.34 M/uL (3.86-4.86)
[2020-10-22 04:37] LABS: Albumin 3.2 g/dL (3.4-5.0); Bilirubin Total 0.7 mg/dL (0.2-1.0); Magnesium 1.7 mg/dL (1.8-2.4); Phosphorus 3.3 mg/dL (2.5-4.9); Potassium 3.2 mmol/L (3.5-5.1); Protein, Total 8.6 g/dL (6.4-8.2); Thyroid Stimulating Hormone 2.11 uIU/mL (0.360-3.740)
--- NOTE | 2020-10-22 06:07 | P.PN ---
Subjective Date of Service: 10/22/20 Chief Complaint: AMS, hypercalcemia Subjective: Other (Patient reports improvement. Currently on room air.) Physical Examination - Vital Signs Temperature: 97.8 F Blood Pressure: 149/63 Pulse: 64 Respirations: 18 Pulse Ox (%): 97 - Studies Laboratory Data (last 24 hrs) 10/21/20 20:24: PT 12.3, INR 1.07 10/21/20 20:24: WBC 4.20 L, Hgb 15.1 H, Hct 45.9 H, Plt Count 169 10/21/20 20:24: Sodium 139, Potassium 3.4 L, BUN 20 H, Creatinine 1.49 H, Glucose 78, Magnesium 1.9, Total Bilirubin 0.9, AST 40 H, ALT 31, Alkaline Phosphatase 96 Assessment & Plan Discharge Plan: Home Plan to discharge in: Greater than 2 days Physician Review Additional Text: COVID: Negative CT head: COMPARISON: Head C Spine Cap W Con dated 05/10/2019 TECHNIQUE: Axial 5 mm thick images of the head were obtained without IV contrast. All CT scans are performed using dose optimization technique as appropriate and may include automated exposure control or mA/KV adjustment according to patient size. FINDINGS: No intracranial hemorrhage, mass, edema or shift of mid-line structures. No acute infarction changes seen. Mild atrophy and chronic ischemic changes are present matching comparison. Ventricles are in proportion to volume loss. Patient has a normal variant cavum septum pellucidum et vergae. Physiologic and arterial calcifications are present. Mastoid air cells are clear. Chronic complete opacification of the frontal sinuses and anterior ethmoid air cells noted. No acute bony findings. IMPRESSION: Negative non-contrast CT head examination for acute finding. Above detailed findings are similar to the April 2019 study. Initial Chest x-ray: COMPARISON: April 2019 TECHNIQUE: AP portable chest image was obtained 10/21/2020 8:24 pm . FINDINGS: Prominent interstitial pattern is present. Lung markings are more prominent in the right base part of which is atelectasis. Early right base infiltrate is also suspected. This is not a dense consolidation. No failure or volume overload. Heart and vasculature are normal. No measurable pleural effusion and no pneumothorax. No acute bony abnormality seen. No acute aortic findings suspected. IMPRESSION: Suspected early right lung base pneumonia. CT Scan: COMPARISON: Recent chest x-ray TECHNIQUE: Computed axial tomography of the chest, abdomen and pelvis was obtained. Oral contrast was given. IV contrast was not requested. All CT scans are performed using dose optimization technique as appropriate and may include automated exposure control or mA/KV adjustment according to patient size. FINDINGS: The evaluation of mediastinum, dane, vessels and solid organs is limited secondary to the lack of IV contrast administration. Some images are degraded by patient motion artifact. Mild bibasilar alveolar opacities within the lungs right greater than left. Mild bilateral axillary lymphadenopathy. Moderate right hilar lymphadenopathy is present. The evaluation is somewhat limited second lack of IV contrast. Mild mediastinal lymphadenopathy Small ca lcified hilar and mediastinal lymph nodes. Mild left hilar lymphadenopathy A pleural effusion is not present. A pericardial effusion is not seen. A lung consolidation is not present. The lungs are essentially clear. The liver, spleen, adrenals and left kidney appear grossly normal. Mild fullness in the pancreatic head Cholelithiasis. Punctate nonobstructing right renal calculus Small hiatal hernia. Capone catheter within the bladder. 6.7 centimeter calcified mass within the pelvis. A moderate amount of stool within the colon. Chronic mild compression deformities involve several lumbar vertebra IMPRESSION: Mild bilateral lower lobe alveolar opacities probably pneumonia Hilar, mediastinal and axillary lymphadenopathy may indicate lymphoma or metastatic disease . Mild fullness in the pancreatic head. Either a CT scan with IV and oral contrast or MRI recommended for further evaluation Punctate nonobstructing right renal calculus Cholelithiasis. Small hiatal hernia 6.7 centimeter calcified pelvic mass may represent a fibroid. Follow-up ultrasound in 2 months recommended to assess stability Follow up CXR: COMPARISON: October 21, 2020 FINDINGS: Mild bibasilar lung opacities. Upper lobes appear clear. Heart is normal size IMPRESSION: Mild bibasilar lung opacities may represent pneumonia Physical exam: General: Alert, Oriented x2 patient less confused today. HEENT: Other (Mucous membranes dry) Neck: Supple Respiratory: Clear to auscultation bilaterally, Normal air movement Cardiovascular: No edema Capillary refill: <2 Seconds Gastrointestinal: Normal bowel sounds, Soft and benign Musculoskeletal: No swelling, No contractures, No erythema Integumentary: No breakdown, No significant lesion, No tenderness/swelling Neurological: Normal speech, Normal strength at 5/5 x4 extr, Normal tone, Sensation intact, Cranial nerves 3-12 intact, Other (Patient follows commands well seems encephalopathic) Impression: Metabolic encephalopathy secondary to severe hypercalcemia Acute kidney injury Hypokalemia Abnormal CT scan Hypertension Rheumatoid arthritis History of CVA GERD with hiatal hernia Depression with anxiety Urine drug screen positive for cocaine Plan: Metabolic encephalopathy secondary to severe hypercalcemia: Etiology unknown. Case discussed at length with nephrology. Patient has abnormal CT scan. Patient with serum protein gap. Possible underlying plasma cell dyscrasia. Nephrology to follow-up on lab. Nephrology will increase IV fluids 150 cc/h. Calcitonin to be provided. Pamidronate also provided to help with hypercalcemia. We will check with radiology to see if any of the adenopathy can be biopsied for possible evaluation. If renal function improves other option is to evaluate pancreas or CT chest with contrast. Acute kidney injury: Continue IV fluids. Continue with recommendations by nephrology. Nephrology to follow-up on urinalysis, lab. Hypokalemia: Potassium protocol in place. Abnormal CT scan: Showing hilar, mediastinal and adnexal lymphadenopathy. This may indicate lymphoma or metastatic disease. Mild fullness to the pancreatic head also noted. Small hiatal hernia. 6.7 cm calcified pelvic mass likely fibroid. Will check with radiology to see if any of that adenopathy can be possibly biopsied. Doubt infectious process. Antibiotics discontinued. Hypertension: Continue with home medication. Rheumatoid arthritis: Medication reviewed. History of CVA: Continue DVT prophylaxis GERD with hiatal hernia: Continue with Pepcid Depression with anxiety: Continue with Prozac. Urine drug screen positive for cocaine: Continue to address lifestyle modification education DVT PPX: Lovenox Code status: Full Discharge Plan: Home Time Spent Managing Pts Care (In Minutes): 55
[2020-10-22] MEDS: KCL 20 MEQ/100 mL IVPB 20 MEQ/100 ML BAG IV SCH ×2 (06:18→09:07)
--- NOTE | 2020-10-22 06:39 | P.CNS ---
Date of Consult: 10/22/20 Reason for Consult: VINCE, Hypercalcemia Requesting Physician: Flavio Parada Chief Complaint: AMS, hypercalcemia History of Present Illness: 65-year-old -English female w/ PMHx of hypertension, rheumatoid arthritis, & CVA who presented with a four-day history of altered mental status and was found to have severe hypercalcemia. Chest x-ray showed possible right lower lobe pneumonia and she was started on antibiotics. CT scan of the chest abdomen and pelvis showed multiple lymphadenopathies as well as possible pancreatic mass and pelvic mass. She also was noted to have a care with serum creatinine initially at 1.5. Her baseline serum Cr is 0.7-0.9 as of 05/10/2019. Allergies No Known Allergies Allergy (Unverified 05/10/19 14:07) Home Medications: Albuterol Sulfate [Proair Respiclick] 90 mcg IH Q6HP PRN 10/22/20 Azelastine [Astelin 137MCG/Metered [place]] 2 sprays NS BIDP PRN 10/22/20 Diclofenac/Hyaluronate/Niacin [Roaoxia 3%-4% Gel] 1 gm TP BID 10/22/20 Ergocalciferol (Vitamin D2) [Vitamin D2] 1,250 mcg PO SEECOM 10/22/20 Famotidine [Pepcid] 20 mg PO BID 10/22/20 Fluoxetine HCl [Prozac] 20 mg PO DAILY 10/22/20 Loratadine [Claritin] 10 mg PO DAILY 10/22/20 Trazodone [Desyrel] 50 mg PO BEDTIME 10/22/20 methocarbamoL [Methocarbamol] 750 mg PO QID 10/22/20 predniSONE [Deltasone] 5 mg PO DAILY 10/22/20 - Past Medical/Surgical History -: Hypertension -: Rheumatoid arthritis -: CVA -: Ankle surgery Psychosocial/ Personal History: Lives alone currently - Family History Mother Medical History: Stroke Father Medical History: Heart disease - Social History Alcohol use: No CD- Drugs: No Caffeine use: Yes Place of Residence: Home Review of Systems General: Weakness Eyes: Unremarkable ENT: Unremarkable Respiratory: Unremarkable Cardiovascular: Unremarkable Gastrointestinal: Unremarkable (decreased oral intake) Genitourinary: Unremarkable Musculoskeletal: Unremarkable (bilateral upper extremity edema) Integumentary: Unremarkable Neurological: Confusion Lymphatics: Unremarkable Physical Examination Temp Pulse Resp BP Pulse Ox 97.8 F 64 18 149/63 H 97 10/22/20 06:07 10/22/20 06:07 10/22/20 06:07 10/22/20 06:07 10/22/20 06:07 General: Confused HEENT: Atraumatic, Normocephalic Neck: Supple, JVD not distended Respiratory: Diminished Cardiovascular: Normal S1 S2, No rubs, No murmurs Gastrointestinal: Soft and benign, Non-distended Musculoskeletal: Swelling (both upper extremities) Integumentary: No warmth Neurological: Other (confused) Lymphatics: No axilla or inguinal lymphadenopathy Urinary: Other (no bladder distention) External genitalia: Deferred Rectal: Deferred Laboratory Data (last 24 hrs) 10/21/20 20:24: PT 12.3, INR 1.07 10/21/20 20:24: WBC 4.20 L, Hgb 15.1 H, Hct 45.9 H, Plt Count 169 10/21/20 20:24: Sodium 139, Potassium 3.4 L, BUN 20 H, Creatinine 1.49 H, Glucose 78, Magnesium 1.9, Total Bilirubin 0.9, AST 40 H, ALT 31, Alkaline Phos phatase 96 Conclusions/Impression: # Symptomatic severe hypercalcemia of unclear etiology, rule out underlying solid organ versus hematologic malignancy Corrected serum Ca 14.8 on hosp adm, today at 15.5 iPTH appropriately suppressed, 25OHD wnl, ALP wnl BNP wnl F/u PTH-rP, 1,25OH2D, quantiferon gold TB, uric acid CT C/A/P on 10/22/20 showed bilateral axillary lymphadenopathy, bilateral hilar/mediastinal lymphadenopathy, mild fullness in the pancreatic head, cholelithias, small nonobstructing right renal calculus, 6.7 cm calcified pelvic mass within the pelvis w/c may be fibroid +Serum protein gap, possible underlying plasma cell dyscrasia, f/u random UPCR F/u proteinuria & paraprotein dse workup, including IgG subclasses Increase NS gtt to 150 cc/hr Give Calcitonin SQ bid up to 4 doses prn Give Pamidronate IV Recheck lytes this pm # VINCE 2/2 hyperCa-related prerenal state +/- ATN Baseline SCr 0.7-0.9 as of Apr 2019 SCr 1.5 on adm, at 1.4 today Urinalysis w/ no proteinuria but +hematuria, + pyuria, +elevated SG, +uric acid crystals, 1+ blood F/u serum CK & uric acid level F/u UCx, uChem, UPCR BNP within normal limits NS gtt as above Monitor I/O, renal panel # Acute encephalopathy 2/[address] neg Hypercalcemia correction as above Monitor # Hypokalemia Replete via KCl # HypoPO4 Replete via IV Phos # HypoMg Monitor # Htn Monitor # ?RLL PNA On empiric abx # Hx of CVA; Rheumatoid arthritis OOB w/ PT/OT
[2020-10-22] MEDS: NA CHLORIDE 0.9% 1,000 ML IV SCH ×3 (07:15→21:15)
[2020-10-22] MEDS ORDERED: PAMIDRONATE 60 MG in NA CHLORIDE 0.9% 500 ML IV SCH (08:00)
[2020-10-22] MEDS ORDERED: PAMIDRONATE DISOD 30 MG VIAL IV ONE (08:00)
--- NOTE | 2020-10-22 08:54 | RAD REPORT ---
EXAM DESCRIPTION: Angelina Single View10/22/2020 7:04 am CLINICAL HISTORY: Chest pain COMPARISON: October 21, 2020 FINDINGS: Mild bibasilar lung opacities. Upper lobes appear clear. Heart is normal size IMPRESSION: Mild bibasilar lung opacities may represent pneumonia
[2020-10-22] MEDS ORDERED: CEFTRIAXONE 1 GM/NS 50 ML 1 GM/50 ML BAG IV SCH (09:00)
[2020-10-22] MEDS: ENOXAPARIN 40 MG/0.4 ML SQ SCH (09:08)
[2020-10-22 09:24] LABS: CKMB Creatine Kinase MB 1.5 ng/mL (1.0-3.6); Uric Acid 8.1 mg/dL (2.6-6.0)
[2020-10-22] MEDS: CALCITONIN 200 IU/ML INJ (2ML VIAL) SQ SCH ×2 (10:00→22:28)
[2020-10-22] MEDS ORDERED: MAGNESIUM SULFATE 1 gm IVPB 1 GM/100 ML BAG IV ONE ×2 (10:00→19:00)
--- NOTE | 2020-10-22 10:50 | EKG ---
Test Date: 2020-10-21 Test Time: 19:57:08 Blow Pit Helper: EILEEN MEASUREMENT RESULTS: Intervals: Rate: 65 AL: 192 QRSD: 120 QT: 416 QTc: 432 [place]: P: 69 AL: 192 QRS: 90 T: 68 INTERPRETIVE STATEMENTS: Normal sinus rhythm Possible Left atrial enlargement Right bundle branch block Septal infarct, age undetermined Abnormal ECG No previous ECG available for comparison Electronically Signed On 10-22-20 10:48:15 CDT by Torsten Varela
[2020-10-22 11:15] LABS: Arterial Blood Carboxyhemoglob 1.3 % (0-1.5); Blood Gas Oxyhemoglobin 91.9 % (94-97); Blood O2 Saturation 94.5 % (92-98.5)
--- NOTE | 2020-10-22 12:12 | RAD REPORT ---
EXAM DESCRIPTION: CT - Chest Abd Pelvis Wo Con - 10/22/2020 7:34 am CLINICAL HISTORY: Hypercalcemia. Chest and abdominal pain COMPARISON: Recent chest x-ray TECHNIQUE: Computed axial tomography of the chest, abdomen and pelvis was obtained. Oral contrast wa s given. IV contrast was not requested. All CT scans are performed using dose optimization technique as appropriate and may include automated exposure control or mA/KV adjustment according to patient size. FINDINGS: The evaluation of mediastinum, dane, vessels and solid organs is limited secondary to the lack of IV contrast administration. Some images are degraded by patient motion artifact. Mild bibasilar alveolar opacities within the lungs right greater than left. Mild bilateral axillary lymphadenopathy. Moderate right hilar lymphadenopathy is present. The evaluation is somewhat limited second lack of IV contrast. Mild mediastinal lymphadenopathy Small calcified hilar and mediastinal lymph nodes. Mild l eft hilar lymphadenopathy A pleural effusion is not present. A pericardial effusion is not seen. A lung consolidation is not present. The lungs are essentially clear. The liver, spleen, adrenals and left kidney appear grossly normal. Mild fullness in the pancreatic head Cholelithiasis. Punctate nonobstructing right renal calculus Small hiatal hernia. Capone catheter within the bladder. 6.7 centimeter calcified mass within the pelv is. A moderate amount of stool within the colon. Chronic mild compression deformities involve several lumbar vertebra IMPRESSION: Mild bilateral lower lobe alveolar opacities probably pneumonia Hilar, mediastinal and axillary lymphadenopathy may indicate lymphoma or metastatic disease . Mild fullness in the pancreatic head. Either a CT scan with IV and oral contrast or MRI recommended f or further evaluation Punctate nonobstructing right renal calculus Cholelithiasis. Small hiatal hernia 6.7 centimeter calcified pelvic mass may represent a fibroid. Follow-up ultrasound in 2 months recomm ended to assess stability
[2020-10-22] MEDS: HYDRALAZINE HCL 25 MG TABLET PO SCH ×3 (12:57→22:28)
[2020-10-22] MEDS: AMLODIPINE 5 MG TAB PO SCH (13:55)
[2020-10-22] MEDS: FAMOTIDINE 20 MG TAB PO SCH (14:00)
[2020-10-22 17:17] LABS: Magnesium 1.7 mg/dL (1.8-2.4); Phosphorus 2.1 mg/dL (2.5-4.9)
--- NOTE | 2020-10-22 18:29 | RAD REPORT ---
EXAM DESCRIPTION: US - AXILLA ONLY - 10/22/2020 6:13 pm CLINICAL HISTORY: evaluate axillary adenopathy for possible Biopsy Axillary pain and swelling COMPARISON: Chest Abd Pelvis Wo Con dated 10/22/2020 FINDINGS: Several enlarged hypoechoic lymph nodes are present in the right axilla. 10 mm hypoechoic node is present, slightly more inferiorly a 17 x 6 mm low oblong hypoechoic node is present. These ly mph nodes are somewhat deep in the axilla and close to the chest wall and ultrasound-guided percutane ous biopsy of these nodes would be technically challenging.
[2020-10-22] MEDS ORDERED: POTASSIUM PHOS IN 0.9 % NACL 15 MMOL/250 ML BAG IV ONE ×3 (18:30→22:00)
--- NOTE | 2020-10-22 19:17 | RAD REPORT ---
EXAM DESCRIPTION: US - AXILLA ONLY - 10/22/2020 7:08 pm CLINICAL HISTORY: EVAL AXILLARY ADENOPATHY Left axillary lymphadenopathy. COMPARISON: AXILLA ONLY dated 10/22/2020 FINDINGS: Real-time sonography of the left axilla was performed. Right axillary sonography is separa tely reported. Several enlarged hypoechoic left axillary lymph nodes are seen. The largest lymph node on the left me asures 2.4 x 1.0 cm. This lymph node is potentially accessible for percutaneous biopsy.
[2020-10-22] MEDS ORDERED: KCL 20 MEQ/100 mL IVPB 20 MEQ/100 ML BAG IV SCH ×2 (20:00→21:00)
[2020-10-22] MEDS ORDERED: CEFTRIAXONE/SWI 1gm 1 GM/10 ML SYR IVP SCH (21:00)
[2020-10-22] MEDS ORDERED: AZITHROMYCIN IV 500 MG in NA CHLORIDE 0.9% 250 ML IVPB SCH (21:00)
[2020-10-22 23:47] LABS: Urine Protein/Creatinine Ratio 0.75 ratio (<0.15)
[2020-10-23] MEDS: NA CHLORIDE 0.9% 1,000 ML IV SCH ×4 (03:36→22:33)
--- NOTE | 2020-10-23 05:55 | P.PN ---
Subjective Date of Service: 10/23/20 Chief Complaint: AMS, hypercalcemia Subjective: Other (Patient doing well at this time. Somewhat anxious today. No significant nausea or vomiting overall stable.) Physical Examination - Vital Signs Temperature: 98.3 F Blood Pressure: 127/77 Pulse: 71 Respirations: 20 Pulse Ox (%): 96 Assessment & Plan Discharge Plan: Home Plan to discharge in: Greater than 2 days Physician Review Additional Text: COVID: Negative CT head: COMPARISON: Head C Spine Cap W Con dated 05/10/2019 TECHNIQUE: Axial 5 mm thick images of the head were obtained without IV contrast. All CT scans are performed using dose optimization technique as appropriate and may include automated exposure control or mA/KV adjustment according to patient size. FINDINGS: No intracranial hemorrhage, mass, edema or shift of mid-line structures. No acute infarction changes seen. Mild atrophy and chronic ischemic changes are present matching comparison. Ventricles are in proportion to volume loss. Patient has a normal variant cavum septum pellucidum et vergae. Physiologic and arterial calcifications are present. Mastoid air cells are clear. Chronic complete opacification of the frontal sinuses and anterior ethmoid air cells noted. No acute bony findings. IMPRESSION: Negative non-contrast CT head examination for acute finding. Above detailed findings are similar to the April 2019 study. Initial Chest x-ray: COMPARISON: April 2019 TECHNIQUE: AP portable chest image was obtained 10/21/2020 8:24 pm . FINDINGS: Prominent interstitial pattern is present. Lung markings are more prominent in the right base part of which is atelectasis. Early right base infiltrate is also suspected. This is not a dense consolidation. No failure or volume overload. Heart and vasculature are normal. No measurable pleural effusion and no pneumothorax. No acute bony abnormality seen. No acute aortic findings suspected. IMPRESSION: Suspected early right lung base pneumonia. CT Scan: COMPARISON: Recent chest x-ray TECHNIQUE: Computed axial tomography of the chest, abdomen and pelvis was obtained. Oral contrast was given. IV contrast was not requested. All CT scans are performed using dose optimization technique as appropriate and may include automated exposure control or mA/KV adjustment according to patient size. FINDINGS: The evaluation of mediastinum, dane, vessels and solid organs is limited secondary to the lack of IV contrast administration. Some images are degraded by patient motion artifact. Mild bibasilar alveolar opacities within the lungs right greater than left. Mild bilateral axillary lymphadenopathy. Moderate right hilar lymphadenopathy is present. The evaluation is somewhat limited second lack of IV contrast. Mild mediastinal lymphadenopathy Small calcified hilar and mediastinal lymph nodes. Mild left hilar lymphadenopathy A pleural effusion is not present. A pericardial effusion is not seen. A lung consolidation is not present. The lungs are essentially clear. The liver, spleen, adrenals and left kidney appear grossly normal. Mild fullness in the pancreatic head Cholelithiasis. Punctate nonobstructing right renal calculus Small hiatal hernia. Capone catheter within the bladder. 6.7 centimeter calcified mass within the pelvis. A moderate amount of stool within the colon. Chronic mild compression deformities involve several lumbar vertebra IMPRESSION: Mild bilateral lower lobe alveolar opacities probably pneumonia Hilar, mediastinal and axillary lymphadenopathy may indicate lymphoma or metastatic disease . Mild fullness in the pancreatic head. Either a CT scan with IV and oral contrast or MRI recommended for further evaluation Punctate nonobstructing right renal calculus Cholelithiasis. Small hiatal hernia 6.7 centimeter calcified pelvic mass may represent a fibroid. Follow-up ultrasound in 2 months recommended to assess stability Follow up CXR: COMPARISON: October 21, 2020 FINDINGS: Mild bibasilar lung opacities. Upper lobes appear clear. Heart is normal size IMPRESSION: Mild bibasilar lung opacities may represent pneumonia Axillary US: CLINICAL HISTORY: evaluate axillary adenopathy for possible Biopsy Axillary pain and swelling COMPARISON: Chest Abd Pelvis Wo Con dated 10/22/2020 FINDINGS: Several enlarged hypoechoic lymph nodes are present in the right axilla. 10 mm hypoechoic node is present, slightly more inferiorly a 17 x 6 mm low oblong hypoechoic node is present. These lymph nodes are somewhat deep in the axilla and close to the chest wall and ultrasound-guided percutaneous biopsy of these nodes would be technically challenging. Physical exam: General: Alert, oriented. Increased anxiety noted HEENT: Other (Mucous membranes dry) Neck: Supple Respiratory: Clear to auscultation bilaterally, Normal air movement Cardiovascular: No edema Capillary refill: <2 Seconds Gastrointestinal: Normal bowel sounds, Soft and benign Musculoskeletal: No swelling, No contractures, No erythema Integumentary: No breakdown, No significant lesion, No tenderness/swelling Neurological: Normal speech, Normal strength at 5/5 x4 extr, Normal tone, Sensation intact, Cranial nerves 3-12 intact, Other Capone catheter in place Impression: Metabolic encephalopathy secondary to severe hypercalcemia Acute kidney injury Hypokalemia Abnormal CT scan Hypertension Rheumatoid arthritis History of CVA GERD with hiatal hernia Depression with anxiety Urine drug screen positive for cocaine Plan: Metabolic encephalopathy secondary to severe hypercalcemia: Overall improved. Case discussed at length with nephrology. Nephrology plans to give another dose of calcitonin. Calcium improved. Etiology unknown. Differential includes plasma cell dysplasia, underlying unknown cancer, and autoimmune process. Work- up initiated. Patient may require ultrasound-guided endoscopy to evaluate pancreatic fullness but this will be difficult since we cannot do this year. Other option is radiology assisted biopsy of axillary adenopathy. Ultrasound of the axillary shows that this may be difficult for radiology assisted process. Therefore case discussed with surgery to perform axillary biopsy. Continue with IV fluids. Continue with plan of care. Discontinue Capone catheter. Encourage ambulation. Will provide medication for anxiety. Anticipate continued improvement over the next 2 to 3 days. Acute kidney injury: Continue IV fluids. Continue with recommendations by nephrology. Nephrology to follow-up on urinalysis, lab. Hypokalemia: Potassium protocol in place. Abnormal CT scan: Showing hilar, mediastinal and adnexal lymphadenopathy. This may indicate lymphoma or metastatic disease. Mild fullness to the pancreatic head also noted. Small hiatal hernia. 6.7 cm calcified pelvic mass likely fibroid. Ultrasound of axillary shows difficulty in doing radiology assisted biopsy. Therefore surgery consulted to do open axillary biopsy. Hypertension: Continue with home medication. Rheumatoid arthritis: Medication reviewed. History of CVA: Continue DVT prophylaxis GERD with hiatal hernia: Continue with Pepcid Depression with anxiety: Continue with Prozac. Will add Ativan oral for anxiety Urine drug screen positive for cocaine: Continue to address lifestyle modification education DVT PPX: Lovenox Code status: Full Discharge Plan: Home Time Spent Managing Pts Care (In Minutes): 55
--- NOTE | 2020-10-23 06:24 | P.PN ---
Subjective Date of Service: 10/23/20 Chief Complaint: AMS, hypercalcemia Subjective: No new changes Physical Examination - Vital Signs Temperature: 98.3 F Blood Pressure: 127/77 Pulse: 71 Respirations: 20 Pulse Ox (%): 96 - Physical Exam General: In no apparent distress HEENT: Atraumatic, Normocephalic Neck: Supple, JVD not distended Respiratory: Normal air movement Cardiovascular: No rubs, No murmurs Gastrointestinal: Soft and benign, Non-distended Integumentary: No warmth Neurological: Other (+confusion) Urinary: Other (no bladder distention) External genitalia: Deferred Rectal: Deferred Assessment And Plan - Plan # Symptomatic severe hypercalcemia of unclear etiology, rule out underlying solid organ versus hematologic malignancy DDx for hyperCa etiology include: IgG4-related disease, multiple myeloma, amyloidosis, light chain deposition disease, pancreatic cancer with metastases Corrected serum Ca 14.8 on hosp adm, today improved to 10.7 iPTH appropriately suppressed, 25OHD wnl, ALP wnl BNP wnl F/u PTH-rP, 1,25OH2D, quantiferon gold TB Uric acid elevated at 8.1 CT C/A/P on 10/22/20 showed bilateral axillary lymphadenopathy, bilateral hilar/mediastinal lymphadenopathy, mild fullness in the pancreatic head, cholelithias, small nonobstructing right renal calculus, 6.7 cm calcified pelvic mass within the pelvis w/c may be fibroid +Serum & urine protein gap, possible underlying plasma cell dyscrasia F/u proteinuria & paraprotein dse workup, including IgG subclasses Will need LN biopsy &/or pancreatic head mass biopsy Cont NS gtt to 150 cc/hr Give 3rd dose of Calcitonin 200 u SQ today Received Pamidronate IV on 10/22/20 Monitor lytes # VINCE 2/2 hyperCa-related prerenal state +/- ATN Baseline SCr 0.7-0.9 as of Apr 2019 SCr 1.5 on adm, improved to 1.0 today Urinalysis w/ no proteinuria but +hematuria, + pyuria, +elevated SG, +uric acid crystals, 1+ blood Has mild proteinuria, random UPCR 0.8g F/u UCx BNP within normal limits Cont NS gtt as above Monitor I/O, renal panel # R nephrolithiasis 24 hr urine collection x 2 for stone panel as outpt # Acute encephalopathy 2/[address] neg Hypercalcemia correction as above Monitor # HypoPO4 Replete per protocol # HypoMg Replete per protocol # Htn Monitor BP # ?RLL PNA On empiric abx # Hx of CVA; Rheumatoid arthritis OOB w/ PT/OT
[2020-10-23] MEDS ORDERED: PAMIDRONATE 60 MG in NA CHLORIDE 0.9% 500 ML IV ONE ×4 (08:00)
[2020-10-23] MEDS: ENOXAPARIN 40 MG/0.4 ML SQ SCH (09:12)
[2020-10-23] MEDS: FAMOTIDINE 20 MG TAB PO SCH (09:13)
[2020-10-23] MEDS: HYDRALAZINE HCL 25 MG TABLET PO SCH ×3 (09:13→22:32)
[2020-10-23] MEDS: FLUOXETINE 20 MG CAP PO SCH (09:13)
[2020-10-23] MEDS: AMLODIPINE 5 MG TAB PO SCH (09:14)
[2020-10-23 09:19] LABS: Absolute Lymphocytes (CBC) 0.9 K/uL (0.7-4.9); Basophils % 0.6 % (0-1.3); Hematocrit 42.3 % (36.0-45.0); Lymphocytes % 23.5 % (15.3-44.8); MPV 7.5 fL (7.6-11.3); RBC Red Blood Cell Count 5.22 M/uL (3.86-4.86)
[2020-10-23 09:39] LABS: Albumin 3.3 g/dL (3.4-5.0); Bilirubin Total 0.8 mg/dL (0.2-1.0); Phosphorus 1.7 mg/dL (2.5-4.9); Protein, Total 8.7 g/dL (6.4-8.2)
[2020-10-23 09:41] LABS: Potassium 2.9 mmol/L (3.5-5.1)
[2020-10-23 09:42] LABS: Magnesium 1.4 mg/dL (1.8-2.4)
[2020-10-23] MEDS ORDERED: Magnesium Sulfate 2gm IVPB 2 G/50 ML BAG IV ONE (10:00)
[2020-10-23] MEDS ORDERED: CALCITONIN 200 IU/ML INJ (2ML VIAL) SQ ONE ×2 (10:29→15:00)
[2020-10-23] MEDS ORDERED: POTASSIUM CL 40 MEQ in NA CHLORIDE 0.9% 500 ML IV ONE (11:00)
[2020-10-23 11:17] LABS: Rheumatoid Factor NEG (NEG)
[2020-10-23] MEDS ORDERED: LORAZEPAM 0.5 MG TABLET PO PRN (12:16)
[2020-10-23] MEDS ORDERED: POTASSIUM PHOS IN 0.9 % NACL 15 MMOL/250 ML BAG IV ONE (15:00)
[2020-10-23] MEDS: LORazepam 2 MG/ML VIAL IV PRN (23:36)
[2020-10-24] MEDS: NA CHLORIDE 0.9% 1,000 ML IV SCH ×4 (05:31→22:01)
--- NOTE | 2020-10-24 05:57 | P.PN ---
Subjective Date of Service: 10/24/20 Chief Complaint: AMS, hypercalcemia Subjective: Doing well, Other (Patient stable. No complaints noted) Physical Examination - Vital Signs Temperature: 98.6 F Blood Pressure: 145/86 Pulse: 76 Respirations: 16 Pulse Ox (%): 96 Assessment & Plan Discharge Plan: Home Plan to discharge in: 48 Hours Physician Review Additional Text: COVID: Negative CT head: COMPARISON: Head C Spine Cap W Con dated 05/10/2019 TECHNIQUE: Axial 5 mm thick images of the head were obtained without IV contrast. All CT scans are performed using dose optimization technique as appropriate and may include automated exposure control or mA/KV adjustment according to patient size. FINDINGS: No intracranial hemorrhage, mass, edema or shift of mid-line structures. No acute infarction changes seen. Mild atrophy and chronic ischemic changes are present matching comparison. Ventricles are in proportion to volume loss. Patient has a normal variant cavum septum pellucidum et vergae. Physiologic and arterial calcifications are present. Mastoid air cells are clear. Chronic complete opacification of the frontal sinuses and anterior ethmoid air cells noted. No acute bony findings. IMPRESSION: Negative non-contrast CT head examination for acute finding. Above detailed findings are similar to the April 2019 study. Initial Chest x-ray: COMPARISON: April 2019 TECHNIQUE: AP portable chest image was obtained 10/21/2020 8:24 pm . FINDINGS: Prominent interstitial pattern is present. Lung markings are more prominent in the right base part of which is atelectasis. Early right base infiltrate is also suspected. This is not a dense consolidation. No failure or volume overload. Heart and vasculature are normal. No measurable pleural eff usion and no pneumothorax. No acute bony abnormality seen. No acute aortic findings suspected. IMPRESSION: Suspected early right lung base pneumonia. CT Scan: COMPARISON: Recent chest x-ray TECHNIQUE: Computed axial tomography of the chest, abdomen and pelvis was obtained. Oral contrast was given. IV contrast was not requested. All CT scans are performed using dose optimization technique as appropriate and may include automated exposure control or mA/KV adjustment according to patient size. FINDINGS: The evaluation of mediastinum, dane, vessels and solid organs is limited secondary to the lack of IV contrast administration. Some images are degraded by patient motion artifact. Mild bibasilar alveolar opacities within the lungs right greater than left. Mild bilateral axillary lymphadenopathy. Moderate right hilar lymphadenopathy is present. The evaluation is somewhat limited second lack of IV contrast. Mild mediastinal lymphadenopathy Small calcified hilar and mediastinal lymph nodes. Mild left hilar lymphadenopathy A pleural effusion is not present. A pericardial effusion is not seen. A lung consolidation is not present. The lungs are essentially clear. The liver, spleen, adrenals and left kidney appear grossly normal. Mild fullness in the pancreatic head Cholelithiasis. Punctate nonobstructing right renal calculus Small hiatal hernia. Capone catheter within the bladder. 6.7 centimeter calcified mass within the pelvis. A moderate amount of stool within the colon. Chronic mild compression deformities involve several lumbar vertebra IMPRESSION: Mild bilateral lower lobe alveolar opacities probably pneumonia Hilar, mediastinal and axillary lymphadenopathy may indicate lymphoma or metastatic disease . Mild fullness in the pancreatic head. Either a CT scan with IV and oral contrast or MRI recommended for further evaluation Punctate nonobstructing right renal calculus Cholelithiasis. Small hiatal hernia 6.7 centimeter calcified pelvic mass may represent a fibroid. Follow-up ultrasound in 2 months recommended to assess stability Follow up CXR: COMPARISON: October 21, 2020 FINDINGS: Mild bibasilar lung opacities. Upper lobes appear clear. Heart is normal size IMPRESSION: Mild bibasilar lung opacities may represent pneumonia Axillary US: CLINICAL HISTORY: evaluate axillary adenopathy for possible Biopsy Axillary pain and swelling COMPARISON: Chest Abd Pelvis Wo Con dated 10/22/2020 FINDINGS: Several enlarged hypoechoic lymph nodes are present in the right axilla. 10 mm hypoechoic node is present, slightly more inferiorly a 17 x 6 mm low oblong hypoechoic node is present. These lymph nodes are somewhat deep in the axilla and close to the chest wall and ultrasound-guided percutaneous biopsy of these nodes would be technically challenging. Physical exam: General: Patient alert and cooperative. Less anxiety noted. HEENT: Other (Mucous membranes dry) Neck: Supple Respiratory: Clear to auscultation bilaterally, Normal air movement Cardiovascular: No edema Capillary refill: <2 Seconds Gastrointestinal: Normal bowel sounds, Soft and benign Musculoskeletal: No swelling, No contractures, No erythema Integumentary: No breakdown, No significant lesion, No tenderness/swelling Neurological: Normal speech, Normal strength at 5/5 x4 extr, Normal tone, Sensation intact, Cranial nerves 3-12 intact, Other Capone catheter in place Impression: Metabolic encephalopathy secondary to severe hypercalcemia Acute kidney injury Hypokalemia Abnormal CT scan Hypertension Rheumatoid arthritis History of CVA GERD with hiatal hernia Depression with anxiety Urine drug screen positive for cocaine Dysphagia Plan: Metabolic encephalopathy secondary to severe hypercalcemia: Overall stable. Continue with replacement of electrolytes. Case discussed at length with nephdoreen perkins yesterday. Patient has received calcitonin with improvement of calcium. Etiology of hypercalcemia unknown. Differential includes plasma cell dysplasia, underlying unknown cancer, and autoimmune process. Work-up initiated. Work-up pending at this time. Case discussed with surgery about biopsy of axillary adenopathy. This can potentially be done tomorrow. Will discuss with surgery. We will keep n.p.o. after midnight in preparation for this. Continue with IV fluids. Nephrology to adjust. Anticipate possible discharge in the next 24 to 48 hours. I will turn the service over to the hospitalist team tomorrow. I will go plan of care with him. Acute kidney injury: Continue IV fluids, nephrology to adjust. Continue with recommendations by nephrology. Nephrology to follow-up on urinalysis, lab. Hypokalemia: Potassium protocol in place. Abnormal CT scan: Showing hilar, mediastinal and adnexal lymphadenopathy. This may indicate lymphoma or metastatic disease. Mild fullness to the pancreatic head also noted. Small hiatal hernia. 6.7 cm calcified pelvic mass likely fibroid. Ultrasound of axillary shows difficulty in doing radiology assisted biopsy. Surgery to perform axillary biopsy hopefully tomorrow. Hypertension: Continue with home medicationNorvasc and hydralazine. Rheumatoid arthritis: Medication reviewed. History of CVA: Continue DVT prophylaxis GERD with hiatal hernia: Continue with Pepcid Depression with anxiety: Continue with Prozac. Continue with Ativan as needed Urine drug screen positive for cocaine: Continue to address lifestyle modification education Dysphagia: Speech evaluated patient. Recommend pured diet due to poor dentition DVT PPX: Lovenox Code status: Full Discharge Plan: Home Time Spent Managing Pts Care (In Minutes): 55
--- NOTE | 2020-10-24 07:05 | P.PN ---
Subjective Date of Service: 10/24/20 Chief Complaint: AMS, hypercalcemia Subjective: No new changes Physical Examination - Vital Signs Temperature: 98.6 F Blood Pressure: 145/86 Pulse: 76 Respirations: 16 Pulse Ox (%): 96 - Physical Exam General: In no apparent distress HEENT: Atraumatic Neck: Supple, JVD not distended Respiratory: Normal air movement Cardiovascular: No rubs, No murmurs Gastrointestinal: Soft and benign Musculoskeletal: No clubbing Integumentary: No warmth Neurological: Other (+confused) Urinary: Other (no bladder distention) External genitalia: Deferred Rectal: Deferred Assessment And Plan - Plan # Symptomatic severe hypercalcemia of unclear etiology DDx for hyperCa etiology include: IgG4-related disease, multiple myeloma, amyloidosis, light chain deposition disease, pancreatic cancer with metastases, or hematologic malignancy Corrected serum Ca 14.8 on hosp adm, today improved to 9.9 iPTH appropriately suppressed, 25OHD wnl, ALP wnl BNP wnl F/u PTH-rP, 1,25OH2D, quantiferon gold TB Uric acid elevated at 8.1 CT C/A/P on 10/22/20 showed bilateral axillary lymphadenopathy, bilateral hilar/mediastinal lymphadenopathy, mild fullness in the pancreatic head, cholelithias, small nonobstructing right renal calculus, 6.7 cm calcified pelvic mass within the pelvis w/c may be fibroid +Serum & urine protein gap, possible underlying plasma cell dyscrasia F/u proteinuria & paraprotein dse workup, including IgG subclasses For LN biopsy on 10/25 May need pancreatic head mass biopsy if lymph node biopsy is unrevealing Decrease NS gtt at 75 cc/hr Received Calcitonin SQ Received Pamidronate IV on 10/22/20 Monitor lytes # VINCE 2/2 hyperCa-related prerenal state +/- ATN Baseline SCr 0.7-0.9 as of Apr 2019 SCr 1.5 on adm, improved to 0.8 today Urinalysis w/ no proteinuria but +hematuria, + pyuria, +elevated SG, +uric acid crystals, 1+ blood Has mild proteinuria, random UPCR 0.8g F/u UCx BNP within normal limits Cont NS gtt as above Monitor I/O, renal panel # R nephrolithiasis 24 hr urine collection x 2 for stone panel as outpt # Acute encephalopathy 2/[address] neg Hypercalcemia correction as above Monitor # Hypokalemia Repletion ordered # HypoPO4 Repletion ordered # HypoMg Repletion ordered # Htn BP stable, monitor # ?RLL PNA On empiric abx # Hx of CVA; Rheumatoid arthritis OOB w/ PT/OT
[2020-10-24 07:34] LABS: Bilirubin Total 0.8 mg/dL (0.2-1.0); Magnesium 1.2 mg/dL (1.8-2.4); Phosphorus 1.7 mg/dL (2.5-4.9); Protein, Total 8.2 g/dL (6.4-8.2)
[2020-10-24 07:37] LABS: Potassium 2.8 mmol/L (3.5-5.1)
[2020-10-24 07:50] LABS: Absolute Lymphocytes (CBC) 0.7 K/uL (0.7-4.9); Basophils % 0.4 % (0-1.3); Hematocrit 38.2 % (36.0-45.0); Lymphocytes % 19.6 % (15.3-44.8); MPV 7.6 fL (7.6-11.3); RBC Red Blood Cell Count 4.77 M/uL (3.86-4.86)
[2020-10-24] MEDS: HYDRALAZINE HCL 25 MG TABLET PO SCH ×3 (08:43→20:33)
[2020-10-24] MEDS: FLUOXETINE 20 MG CAP PO SCH (08:43)
[2020-10-24] MEDS: FAMOTIDINE 20 MG TAB PO SCH (08:44)
[2020-10-24] MEDS: ENOXAPARIN 40 MG/0.4 ML SQ SCH (08:44)
[2020-10-24] MEDS: AMLODIPINE 5 MG TAB PO SCH (08:44)
[2020-10-24] MEDS ORDERED: Magnesium Sulfate 2gm IVPB 2 G/50 ML BAG IV ONE (09:00)
[2020-10-24] MEDS ORDERED: POTASSIUM 25 MEQ EFFERV TAB PO ONE (09:00)
[2020-10-24] MEDS ORDERED: POTASSIUM PHOS IN 0.9 % NACL 15 MMOL/250 ML BAG IV ONE (09:00)
[2020-10-24] MEDS: LORazepam 2 MG/ML VIAL IV PRN (10:06)
[2020-10-24] MEDS: POTASSIUM PHOS IN 0.9 % NACL 15 MMOL/250 ML BAG IV SCH ×2 (14:34→20:34)
[2020-10-25 03:27] LABS: RPR (Rapid Plasma Reagin) REACTIVE (NON-REACT)
[2020-10-25 07:17] LABS: Albumin 2.9 g/dL (3.4-5.0); BUN Blood Urea Nitrogen 10 mg/dL (7-18); Bicarbonate 21 mmol/L (21-32); Glucose Level 82 mg/dL (74-106); Phosphorus 2.2 mg/dL (2.5-4.9); Potassium 3.1 mmol/L (3.5-5.1); Sodium Level 143 mmol/L (136-145)
[2020-10-25 07:21] LABS: Magnesium 1.3 mg/dL (1.8-2.4)
[2020-10-25] MEDS: HYDRALAZINE HCL 25 MG TABLET PO SCH ×3 (08:45→21:45)
[2020-10-25] MEDS: ENOXAPARIN 40 MG/0.4 ML SQ SCH (08:45)
[2020-10-25] MEDS: AMLODIPINE 5 MG TAB PO SCH (08:45)
[2020-10-25] MEDS: FAMOTIDINE 20 MG TAB PO SCH ×2 (08:46→21:45)
[2020-10-25] MEDS: FLUOXETINE 20 MG CAP PO SCH ×2 (08:46→12:54)
[2020-10-25] MEDS: NA CHLORIDE 0.9% 1,000 ML IV SCH (11:21)
[2020-10-25] MEDS ORDERED: MAGNESIUM 50% 3 GM in NA CHLORIDE 0.9% 100 ML IV ONE (11:58)
[2020-10-25] MEDS ORDERED: POTASS/SODIUM PHOSPHATE 1 PKT POWD.PACK PO ONE (11:58)
[2020-10-25 14:48] LABS: Potassium 3.4 mmol/L (3.5-5.1)
--- NOTE | 2020-10-25 16:35 | P.PN ---
Subjective Date of Service: 10/25/20 Chief Complaint: AMS, hypercalcemia Subjective: No new changes, Improving <Lakesha Mello - Last Filed: 10/25/20 16:38> Date of Service: 10/25/20 <Rodrigue Vickers - Last Filed: 11/01/20 08:44> Review of Systems Unremarkable General: Unremarkable Eyes: Unremarkable ENT: Unremarkable Respiratory: Unremarkable Cardiovascular: Unremarkable Gastrointestinal: Unremarkable Genitourinary: Unremarkable Musculoskeletal: Other (Bilateral hand swelling due to RA), Unremarkable Integumentary: Unremarkable Neurological: Unremarkable Lymphatics: Unremarkable <Lakesha Mello - Last Filed: 10/25/20 16:38> Physical Examination - Vital Signs Temperature: 97.8 F Blood Pressure: 144/90 Pulse: 82 Respirations: 18 Pulse Ox (%): 98 - Physical Exam General: Alert, In no apparent distress, Oriented x3 HEENT: Atraumatic, PERRLA, EOMI Neck: Supple, JVD not distended Respiratory: Clear to auscultation bilaterally, Normal air movement Cardiovascular: Regular rate/rhythm, Normal S1 S2 Capillary refill: <2 Seconds Gastrointestinal: Normal bowel sounds, No tenderness Musculoskeletal: No tenderness, Other (Bilateral hand swelling ) Integumentary: No rashes Neurological: Normal speech, Normal tone, Normal affect Lymphatics: No axilla or inguinal lymphadenopathy External genitalia: Deferred Rectal: Deferred <Lakesha Mello - Last Filed: 10/25/20 16:38> Assessment And Plan - Plan --Metabolic encephalopathy secondary to severe hypercalcemia: Overall stable. Continue with replacement of electrolytes. Nephrology on board. Patient has received calcitonin with improvement of calcium. Etiology of hypercalcemia unknown. Differential includes plasma cell dysplasia, underlying unknown cancer, and autoimmune process. Case discussed with surgery about biopsy of axillary adenopathy. Radiologist plans a biopsy in am. Surgery on board. We will keep n.p.o. after midnight in preparation for this. Continue with IV fluids. Nephrology to adjust. Anticipate possible discharge in the next 24 to 48 hours. --Acute kidney injury: Continue IV fluids, nephrology to adjust. Continue with recommendations by nephrology. Nephrology to follow-up on urinalysis, lab. --Hypokalemia: Potassium protocol in place. --Hypomagnesemia. Replete prn per protocol --Abnormal CT scan: Showing hilar, mediastinal and adnexal lymphadenopathy. This may indicate lymphoma or metastatic disease. Mild fullness to the pancreatic head also noted. Small hiatal hernia. 6.7 cm calcified pelvic mass likely fibroid. Axillary biopsy hopefully tomorrow. --Hypertension: Continue with home medicationNorvasc and hydralazine. --Rheumatoid arthritis: Medication reviewed. --History of CVA: Continue DVT prophylaxis --GERD with hiatal hernia: Continue with Pepcid --Depression with anxiety: Continue with Prozac. Continue with Ativan as needed --Urine drug screen positive for cocaine: Continue to address lifestyle modification education --Dysphagia: Speech evaluated patient. Recommend pured diet due to poor dentition DVT PPX: Lovenox Code status: Full Discharge Plan: Home Discharge Plan: Home Plan to discharge in: 24 Hours - Code Status/Comfort Care Code Status Assessed: Yes Code Status: Full Code Physician Review: Patient Assessed, Agree with Above Assessment and Plan <Lakesha Mello - Last Filed: 10/25/20 16:38> - Current Problems (Diagnosis) (1) Hypercalcemia Status: Acute (2) Hypokalemia Status: Acute (3) Hypophosphatemia Status: Acute (4) Hypomagnesemia Status: Acute <Rodrigue Vickers - Last Filed: 11/01/20 08:44> Date of Service: 10/25/20 We will plan of care as mentioned above Patient with multiple metabolic abnormalities which had been corrected. Still with some calcium issues which we are working on fixing. Patient schedule for biopsy and will get this done prior to discharge. <Rodrigue Vickers - Last Filed: 11/01/20 08:44>
[2020-10-25] MEDS: ENSURE PUDDING 4 OZ CUP PO SCH (21:00)
--- NOTE | 2020-10-25 22:43 | PN ---
Date of Progress Note: 10/25/2020 Chief Complaint: Severe symptomatic hypercalcemia, altered mental status, confusion. History Of Present Illness: The patient was found to have severe hyperkalemia. Corrected calcium wa s 14.8 upon admission to the hospital and gradually improved to 9.9. The patient was found to have h ypokalemia and hypomagnesemia. The patient had workup done to rule out possible etiology of hypercal cemia including multiple myeloma. The patient had serum protein electrophoresis done, possible etiol ogy except multiple myeloma include amyloidosis, light chain deposition disease, pancreatic cancer wi th metastatic changes, hematologic melanosis. Calcium slightly improved since yesterday. Intact PTH was appropriately suppressed and 25-hydroxy vitamin D level was within normal limit. Followup pendi ng PTH related protein. Review of Systems: The patient answered questions. She is more alert today. Physical Examination: Lungs: Clear to auscultation bilaterally. Heart: S1, S2. Abdomen: Soft, benign. Extremities: Slight edema in both ankles. Laboratory Data: Sodium 142, potassium 3.4, chloride 111, CO2 22, BUN 12, creatinine 0.78, calcium 9 .3, albumin pending, magnesium 1.3, phosphorus 2.2. The latest albumin level is 2.9. Impression And Plan: 1.Hypercalcemia, gradually resolving. There is ongoing hypokalemia and hypomagnesemia. The patient will have replacement. Plan is to check urine study for magnesium and creatinine. 2.Followup on proteinuria and paraprotein workup. Serum protein electrophoresis and urine protein e lectrophoresis are pending. Uric acid is slightly elevated, although the patient is asymptomatic. S he does not have gout. The patient will need further workup for possible malignancy. CT scan done o October 22 showed bilateral axillary lymphadenopathy, bilateral hilar mediastinal lymphadenopathy, mi ld fullness in the pancreatic head, cholelithiasis, small nonobstructive renal calculus and 6.7 cm ca lcified pelvic mass within the pelvis, may be fibroids. The patient will need to have further workup . Recommend workup for malignancy. EB/MODL Voice ID: [id number] Report ID: [id number]
[2020-10-25] MEDS: LORazepam 2 MG/ML VIAL IV PRN (23:22)
[2020-10-26 06:05] LABS: Absolute Lymphocytes (CBC) 0.7 K/uL (0.7-4.9); Hematocrit 38.3 % (36.0-45.0); Lymphocytes % 19.5 % (15.3-44.8); MPV 7.3 fL (7.6-11.3); RBC Red Blood Cell Count 4.82 M/uL (3.86-4.86)
[2020-10-26 06:17] LABS: Bilirubin Total 0.8 mg/dL (0.2-1.0); Magnesium 1.6 mg/dL (1.8-2.4); Potassium 3.1 mmol/L (3.5-5.1); Protein, Total 8.2 g/dL (6.4-8.2)
[2020-10-26] MEDS: NA CHLORIDE 0.9% 1,000 ML IV SCH (06:30)
[2020-10-26] MEDS ORDERED: MAGNESIUM SULFATE 1 gm IVPB 1 GM/100 ML BAG IV ONE (06:42)
[2020-10-26] MEDS: ENOXAPARIN 40 MG/0.4 ML SQ SCH (09:00)
[2020-10-26] MEDS: HYDRALAZINE HCL 25 MG TABLET PO SCH ×2 (09:00→22:04)
[2020-10-26] MEDS: FLUOXETINE 20 MG CAP PO SCH (09:00)
[2020-10-26] MEDS: ENSURE PUDDING 4 OZ CUP PO SCH ×2 (09:00→21:00)
[2020-10-26] MEDS: AMLODIPINE 5 MG TAB PO SCH (09:00)
[2020-10-26] MEDS: FAMOTIDINE 20 MG TAB PO SCH ×2 (09:00→22:04)
[2020-10-26 09:02] LABS: Blood Morphology Comment NOT SEEN (NOT SEEN); Platelet Estimate ADEQ
[2020-10-26] MEDS: KCL 20 MEQ/100 mL IVPB 20 MEQ/100 ML BAG IV SCH ×2 (09:56→12:11)
--- NOTE | 2020-10-26 12:13 | RAD REPORT ---
EXAM DESCRIPTION: US - Biopsy Lymph Node - 10/26/2020 9:18 am CLINICAL HISTORY: LYMPHADENOPATHY R/O MALIGNANCYleft axilla COMPARISON: AXILLA ONLY dated 10/22/2020; AXILLA ONLY dated 10/22/2020 TECHNIQUE: Patient presents for ultrasound-guided biopsy of previously diagnosed enlarged left axill sean lymph node. Patient had no contraindicated allergy or medication history. PT/ INR studies within normal range. The procedure, risks and alternatives were discussed with the patient in detail. After answering all questions both oral and written consent were obtained. Preliminary imaging again identified the enlarged left axillary lymph node. The skin was prepped and draped in the usual sterile fashion. Under direct sonographic visualization the skin and deeper tissu es were anesthetized with 1% lidocaine. Under direct sonographic visualization a 17 gauge introducer needle was advanced with the tip placed at the margin a lymph node. An 18 gauge biopsy needle was advanced through the introducer needle. Nee dle tip was seen to penetrate the lymph node. There were 2 biopsies obtained for touch prep in histol ogy. Two additional biopsies were obtained for histology. All biopsy was performed under direct sonog raphic visualization. Imaging showed biopsy needle traversing the substance of the lymph node. At the conclusion of the procedure direct pressure was applied to the puncture site and axilla. No he matoma or post biopsy complication identified. All obtain biopsy material was given to pathology for cytology/ histology assessment. IMPRESSION: Ultrasound-guided biopsy was performed of abnormal left axillary lymph node as detailed.
[2020-10-26] MEDS ORDERED: Magnesium Sulfate 2gm IVPB 2 G/50 ML BAG IV ONE (13:35)
[2020-10-26] MEDS ORDERED: NA CHLORIDE 0.9% 1,000 ML IV SCH (13:35)
[2020-10-26] MEDS ORDERED: POTASSIUM CL 40 MEQ in NA CHLORIDE 0.9% 500 ML IV SCH (14:30)
--- NOTE | 2020-10-26 15:04 | PN ---
Date of Progress Note: 10/26/2020 Subjective: The patient was admitted with acute kidney injury secondary to prerenal, poor perfusion, ATN. The patient's after hydration kidney function has been improved, significantly back to normalized. The patient is persistent to have hypokalemia and hypomagnesemia, being on supplement. Physical Examination: Vital Signs: When I saw the patient; blood pressure of 126/72, pulse of 77, afebrile. Chest: Clear to auscultation. Heart: S1, S2. Regular. Abdomen: Soft, nontender. Extremity: No edema. Neuro: Alert, oriented x3. Laboratory Data: Sodium 140, potassium 3.1, bicarb 23, BUN 10, creatinine 0.8, calcium 8.7, magnesium 1.6, phosphorus 2.2. Current Medications: The patient on include Lovenox, amlodipine, hydralazine 50 t.i.d., Lorazepam, Zofran, normal saline 75 per hour, magnesium sulfate, KCl. Assessment And Plan: 1. Acute kidney injury secondary to prerenal, recovered, resolved. Normal volume. I am going to go ahead and decrease IV fluid to 50 per hour, plan to discontinue. 2. Hypertension, controlled, optimal, to simplify medication. I am going to increase calcium channel anh, amlodipine to 10 mg. We will decrease hydralazine to b.i.d. and we will follow up the patient. 3. Hypokalemia, hypomagnesemia. We will supplement aggressively. 4. Encephalopathy with hypercalcemia. Calcium normalized. We will follow up protein electrophoresis currently, PTH and vitamin D. PTH normal. Vitamin D is still pending. time spend exam the patient face to face placing order , reviewing data , discussed the case with nursing staff, other team care including taqueria 45 min MARGOT Voice ID: [id number] Report ID: [id number] SHANON
[2020-10-26 17:35] LABS: HIV AG/AB 4TH GEN Non-reactive (Non-reactive)
[2020-10-26 18:50] LABS: HBsAG Nonreactive (Nonreactive)
[2020-10-27 06:44] LABS: Albumin 2.7 g/dL (3.4-5.0); BUN Blood Urea Nitrogen 8 mg/dL (7-18); Bicarbonate 22 mmol/L (21-32); Glucose Level 106 mg/dL (74-106); Magnesium 1.6 mg/dL (1.8-2.4); Phosphorus 1.6 mg/dL (2.5-4.9); Potassium 3.3 mmol/L (3.5-5.1); Sodium Level 141 mmol/L (136-145)
[2020-10-27] MEDS ORDERED: AMLODIPINE 10 MG TAB PO SCH (09:00)
[2020-10-27] MEDS: ENOXAPARIN 40 MG/0.4 ML SQ SCH (09:00)
[2020-10-27] MEDS: ENSURE PUDDING 4 OZ CUP PO SCH (09:00)
[2020-10-27] MEDS ORDERED: Magnesium Sulfate 2gm IVPB 2 G/50 ML BAG IV ONE (09:24)
[2020-10-27] MEDS: FAMOTIDINE 20 MG TAB PO SCH (09:59)
[2020-10-27] MEDS: FLUOXETINE 20 MG CAP PO SCH (10:00)
[2020-10-27] MEDS ORDERED: POTASSIUM CL 40 MEQ in NA CHLORIDE 0.9% 500 ML IV SCH (10:00)
[2020-10-27] MEDS: HYDRALAZINE HCL 25 MG TABLET PO SCH (10:00)
--- NOTE | 2020-10-27 12:03 | PN ---
Date of Progress Note: 10/27/2020 Subjective: The patient was admitted with acute kidney injury, prerenal, secondary to dehydration. The patient was on IV fluid. IV fluid has been discontinued today. The patient is feeling much bett er. Physical Examination: Vital Signs: Blood pressure 117/62, pulse of 83, afebrile. The patient had good urine output. Chest: Clear to auscultation. Heart: S1, S2 regular. Abdomen: Soft, nontender. Extremity: No edema on the lower extremity. Edema on both upper extremities. Neurologic: Alert and oriented. No focal. Laboratory Data: WBC 3.6, H and H 13.1/38.3. Sodium 141, potassium 3.3, bicarb 22, BUN 8, creatinin e 0.7, calcium 8.2, phosphorus 1.6, magnesium 1.6, albumin 2.7. Corrected calcium is 9. Current Medications: The patient on include Lovenox, amlodipine 10 mg, hydralazine 25 t.i.d., Ensure , Pepcid, Pamidronate. Assessment And Plan: 1.Acute kidney injury secondary to prerenal, dehydration, superimposed with calcium, diuresis, recov ered, resolved. Discontinue IV fluid. We will monitor the patient closely. 2.Proteinuria nonnephrotic with the presence of hypercalcemia. We will follow up serum protein elec trophoresis. The patient undergone lymph node biopsy. We will follow up. 3.Hypokalemia, hypomagnesemia, hypophosphatemia. We will supplement. 4.Hypercalcemia. PTH, vitamin D still pending. Serum protein electrophoresis is still pending. Th e patient is status post Pamidronate, resolved. We will follow up as outpatient. The patient cleared from the renal standpoint for discharge planning to follow up in 2 weeks. [facility] Voice ID: [id number] Report ID: [id number]
[2020-10-27 12:46] VITALS: O2SAT 95
[2020-10-27] MEDS ORDERED: POTASSIUM PHOS 20 MM in NA CHLORIDE 0.9% 500 ML IV ONE ×2 (13:00→16:00)
--- NOTE | 2020-10-27 14:40 | P.PN ---
Subjective Date of Service: 10/26/20 Patient is clinically doing better. Biopsy was performed today. Will plan to discharge tomorrow. Monitor electrolytes closely as an outpatient. Review of Systems 10-point ROS is otherwise unremarkable Physical Examination - Vital Signs Temperature: 99 F Blood Pressure: 127/73 Pulse: 74 Respirations: 18 Pulse Ox (%): 98 - Physical Exam General: Alert, In no apparent distress, Oriented x3 HEENT: Atraumatic, PERRLA, EOMI Neck: Supple, JVD not distended Respiratory: Clear to auscultation bilaterally, Normal air movement Cardiovascular: Regular rate/rhythm, Normal S1 S2 Gastrointestinal: Normal bowel sounds, No tenderness Musculoskeletal: No tenderness Integumentary: No rashes Neurological: Normal speech, Normal tone, Normal affect Lymphatics: No axilla or inguinal lymphadenopathy - Studies Medications List Reviewed: Yes Assessment & Plan - Problems (Diagnosis) (1) Hypercalcemia Status: Acute (2) Hypokalemia Status: Acute (3) Hypophosphatemia Status: Acute (4) Hypomagnesemia Status: Acute - Plan Plan: 1. Status post biopsy and will continue monitoring 2. Correct electrolytes 3. Outpatient follow-up for results 4. GI and DVT prophylaxis Discharge Plan: Home Plan to discharge in: Greater than 2 days - Advance Directives Does patient have a Living Will: No Does patient have a Durable POA for Healthcare: No - Code Status/Comfort Care Code Status: Full Code Physician Review: Patient Assessed, Agree with Above Assessment and Plan Critical Care: No Time Spent Managing PTS Care (In Minutes): 35
[2020-10-28 05:27] LABS: Albumin, (SPE) 3.4 g/dL (3.8-4.8); Alpha-1-Globulins 0.3 g/dL (0.2-0.3); Alpha-2-Globulins 0.8 g/dL (0.5-0.9); Gamma Globulins 2.4 g/dL (0.8-1.7); INTERPRETATION REPORT
[2020-11-01 08:46] VITALS: BP 127/73; TEMP 99
--- NOTE | 2020-11-01 08:49 | P.DS ---
Discharge Date: 10/27/20 Disposition: ROUTINE DISCHARGE Discharge Condition: GOOD Reason for Admission: AMS, hypercalcemia - Problems (1) Hypercalcemia Status: Acute (2) Hypokalemia Status: Acute (3) Hypophosphatemia Status: Acute (4) Hypomagnesemia Status: Acute Brief History of Present Illness: 65-year-old -[place]ian female with history of hypertension, rheumatoid arthritis, CVA presents emergency department for altered mental status. Sister reports that she lives alone and since Sunday she has been not acting herself having difficulty walking and seemed disoriented. Patient was evaluated in the emergency department, CT head brain without contrast negative for any acute findings, labs were significant for white blood cell count 4.2 hemoglobin 15.1 hematocrit 45.9 potassium 3.4 creatinine 1.49 GFR 42 BUN 20 bicarb 28 calcium 14.5 BNP 172. Chest x-ray demonstrates possible right lower lobe pneumonia. Case was discussed with hospitalist attending, nephrology recommendation is to obtain PTH intact, vitamin D levels and give 2 L normal saline bolus, 40 of Lasix followed by NS at 100 cc/h overnight. Vital signs stable. Will admit for further evaluation and management. Hospital Course: Patient clinically continues to improve. Patient will no new complaints. Patient is feeling well and anxious to go home. Spoke with family and they will be picking her up today. Follow with PCP for results of biopsy results. Blood pressure is stable. Continue with tapering dose of prednisone as well. Vital Signs/Physical Exam: Temp Pulse Resp BP Pulse Ox 99 F 74 18 127/73 98 11/01/20 08:46 11/01/20 08:46 11/01/20 08:46 11/01/20 08:46 11/01/20 08:46 General: Alert, In no apparent distress, Oriented x3 Laboratory Data at Discharge: WBC 3.60 K/uL (4.3-10.9) L 10/26/20 05:50 Hgb 13.1 g/dL (12.0-15.0) 10/26/20 05:50 Hct 38.3 % (36.0-45.0) 10/26/20 05:50 Plt Count 172 K/uL (152-406) 10/26/20 05:50 PT 12.3 SECONDS (9.5-12.5) 10/21/20 20:24 INR 1.07 10/21/20 20:24 Sodium 141 mmol/L (136-145) 10/27/20 06:06 Potassium 3.3 mmol/L (3.5-5.1) L 10/27/20 06:06 BUN 8 mg/dL (7-18) 10/27/20 06:06 Creatinine 0.76 mg/dL (0.55-1.3) 10/27/20 06:06 Glucose 106 mg/dL (74-106) 10/27/20 06:06 Uric Acid 8.1 mg/dL (2.6-6.0) H 10/22/20 08:48 Phosphorus 1.6 mg/dL (2.5-4.9) L 10/27/20 06:06 Magnesium 1.6 mg/dL (1.8-2.4) L 10/27/20 06:06 Total Bilirubin 0.8 mg/dL (0.2-1.0) 10/26/20 05:50 AST 36 U/L (15-37) 10/26/20 05:50 ALT 25 U/L (12-78) 10/26/20 05:50 Alkaline Phosphatase 79 U/L (45-117) 10/26/20 05:50 Triglycerides 125 mg/dL (<150) 10/22/20 03:28 Cholesterol 203 mg/dL (<200) H 10/22/20 03:28 HDL Cholesterol 38 mg/dL (40-60) L 10/22/20 03:28 Cholesterol/HDL Ratio 5.34 10/22/20 03:28 Lipase 66 U/L (73-393) L 10/21/20 22:13 Home Medications: Albuterol Sulfate [Proair Respiclick] 90 mcg IH Q6HP PRN 10/22/20 Azelastine [Astelin 137MCG/Metered Trilla*] 2 sprays NS BIDP PRN 10/22/20 Diclofenac/Hyaluronate/Niacin [Roaoxia 3%-4% Gel] 1 gm TP BID 10/22/20 Famotidine [Pepcid*] 20 mg PO BID 10/22/20 Fluoxetine HCl [Prozac] 20 mg PO DAILY 10/22/20 Loratadine [Claritin*] 10 mg PO DAILY 10/22/20 Trazodone [Desyrel*] 50 mg PO BEDTIME 10/22/20 methocarbamoL [Methocarbamol] 750 mg PO QID 10/22/20 Amlodipine [Norvasc*] 10 mg PO DAILY #30 tab 10/27/20 Ensure Pudding 4 oz PO BID #60 cup 10/27/20 Hydralazine [Apresoline*] 25 mg PO BID #60 tab 10/27/20 Magnesium Chloride 64 mg PO DAILY #30 tablet. 10/27/20 Potassium Chloride [K-Dur] 20 meq PO DAILY #30 tab.er.prt 10/27/20 predniSONE [Prednisone*] 20 mg PO BID #30 tab 10/27/20 New Medications: Hydralazine [Apresoline*] 25 mg PO BID #60 tab Ensure Pudding 4 oz PO BID #60 cup Potassium Chloride [K-Dur] 20 meq PO DAILY #30 tab.er.prt Magnesium Chloride 64 mg PO DAILY #30 tablet. Amlodipine [Norvasc*] 10 mg PO DAILY #30 tab predniSONE [Prednisone*] 20 mg PO BID #30 tab Physician Discharge Instructions: OK TO DC IV AND DC HOME FOLLOW-UP WITH PRIMARY CARE PROVIDER IN 1-2 WEEKS FOLLOW-UP WITH CARDIOLOGY IN 1-2 WEEKS Follow-up with Nephrology in 1-2 weeks Advise getting labs recheck to monitor electrolytes and kidney function; this should be arranged with PCP RETURN TO THE ER IF symptoms worsen CALL or TEXT DR. MULLINS AT [phone] IF ANY QUESTIONS REGARDING HOSPITAL STAY. PLEASE CALL THE FLOOR AT [phone] IF ANY MEDICATION OR NURSING QUESTIONS. Your prescriptions were sent to [facility] per your sister's request so she can pick them up for you. Diet: AHA Activity: Fall precautions Followup: [email or web address] [Primary Care Provider] - Time spent managing pt's care (in minutes): 35
== END 2020-10-27 18:36 | disposition home or self-care (01) | DRG 640 ==
LOC: ER 15:21 → 2ND 21:54
PROVIDERS: ADMIT Family Medicine; ATTEND Family Medicine
PROC: 07D63ZX Extraction of Left Axillary Lymphatic, Percutaneous Approach, Diagnostic (ICD-10-PCS; principal; 2020-10-26)
DX: E83.52 Hypercalcemia (principal); G93.41 Metabolic encephalopathy; N17.0 Acute kidney failure with tubular necrosis; E44.1 Mild protein-calorie malnutrition; E87.6 Hypokalemia; I10 Essential (primary) hypertension; M06.9 Rheumatoid arthritis, unspecified; K21.9 Gastro-esophageal reflux disease without esophagitis; K44.9 Diaphragmatic hernia without obstruction or gangrene; F41.8 Other specified anxiety disorders; R13.10 Dysphagia, unspecified; E86.0 Dehydration; E83.42 Hypomagnesemia; E83.39 Other disorders of phosphorus metabolism; R59.1 Generalized enlarged lymph nodes; F14.90 Cocaine use, unspecified, uncomplicated; Z68.20 Body mass index [BMI] 20.0-20.9, adult; Z20.822 Contact with and (suspected) exposure to COVID-19; Z86.73 Personal history of transient ischemic attack (TIA), and cerebral infarction without residual deficits
CPT/HCPCS: 36415; 38505; 51702; 70450; 71045; 71250; 74176; 76882; 76942; 80048; 80053; 80061; 80069; 80076; 80307; 80329; 81003; 81015; 82306; 82330; 82553; 82570; 82652; 82805; 83036; 83520; 83690; 83735; 83880; 83935; 83970; 84100; 84132; 84145; 84156; 84165; 84300; 84439; 84443; 84484; 84550; 85025; 85610; 86021; 86038; 86160; 86334; 86430; 86592; 86593; 86704; 86706; 86780; 86803; 87040; 87086; 87088; 87340; 87389; 88305; 92610; 93005; 96365; 96375; 97116; 97161; 97530; 99285; J0456; J0630; J0696; J1650; J1940; J2430; J3475; J3480; J7030; J7040; J7050; U0003